=== PATIENT | male | born 1945 | race Caucasian/White ===

== ENCOUNTER → 2018-07-02 10:11 | Outpatient (CLI) | payer OTHER, SELFPAY ==
--- NOTE | 2018-07-02 10:13 | DI.US.S_ITS ---
PROCEDURE: US ABD AORTA ANEURYSM SCREEN INDICATIONS: SCREEN TECHNIQUE: Real time scanning was performed of the aorta and iliac arteries, with image documentation. COMPARISON: None. FINDINGS: Aorta: Proximal aortic diameter is not seen due to bowel gas. Mid-aorta measures 1.7 cm. Distal aortic diameter is 1.5 cm. Iliac arteries: Right common iliac artery measures 0.9 cm. Left common iliac artery measures 1.0 cm. IMPRESSION: Nonvisualization of the proximal third of the aorta due to bowel gas. The aorta and iliac arteries are normal in caliber more inferiorly. Dictated by: Emmanuel Gallegos M.D. on 07/02/2018 at 11:29 Approved by: Emmanuel Gallegos M.D. on 07/02/2018 at 11:30
== END ==
PROVIDERS: PCP Family Medicine; Visit Provider Student in an Organized Health Care Education/Training Program
DX: Z13.6 Encounter for screening for cardiovascular disorders (principal); Z87.891 Personal history of nicotine dependence
CPT/HCPCS: 76706

== ENCOUNTER → 2018-10-18 10:31 | Outpatient (CLI) | payer OTHER, SELFPAY ==
[2018-10-18 12:20] LABS: Alanine Aminotransferase 31 IU/L (21-72); Albumin 4.3 g/dL (3.5-5.0); Albumin Globulin Ratio 1.3 (1.0-2.8); Alkaline Phosphatase 47 U/L (38-126); Aspartate Aminotransferase 27 IU/L (17-59); BUN Creatinine Ratio 14.5 (6-22); Bilirubin Total 1.3 mg/dL (0.2-1.3); Blood Urea Nitrogen 16 mg/dL (9-20); Calcium 9.2 mg/dL (8.4-10.2); Carbon Dioxide 26 mmol/L (22-32); Chloride 104 mmol/L (98-107); Estimated Glomerular Filt Rate > 60.0 mL/min (>60); Globulin 3.2 g/dL (1.7-4.1); Glucose 112 mg/dL (80-110); HEMOLYSIS < 15 (0-50); Potassium 4.3 mmol/L (3.4-5.1); Sodium 140 mmol/L (137-145); Total Protein 7.5 g/dL (6.3-8.2)
[2018-10-18 12:33] LABS: Vitamin D 25 Hydroxy (D3) 34.1 ng/mL (30.0-100.0)
== END ==
PROVIDERS: Family Provider Student in an Organized Health Care Education/Training Program; PCP Student in an Organized Health Care Education/Training Program; Visit Provider Student in an Organized Health Care Education/Training Program
DX: Z79.899 Other long term (current) drug therapy (principal); E55.9 Vitamin D deficiency, unspecified
CPT/HCPCS: 36415; 80053; 82306

== ENCOUNTER → 2020-08-27 14:26 | Outpatient (CLI) | payer OTHER, SELFPAY ==
[2020-08-27 15:42] LABS: Alanine Aminotransferase 24 IU/L (<50); Albumin 4.3 g/dL (3.5-5.0); Albumin Globulin Ratio 1.4 (1.0-2.8); Alkaline Phosphatase 48 U/L (38-126); Aspartate Aminotransferase 30 IU/L (17-59); Bilirubin Total 1.2 mg/dL (0.2-1.3); Blood Urea Nitrogen 19 mg/dL (9-20); Calcium 9.3 mg/dL (8.4-10.2); Carbon Dioxide 28 mmol/L (22-32); Chloride 102 mmol/L (98-107); Estimated Glomerular Filt Rate 46.9 mL/min (>60); Globulin 3.1 g/dL (1.7-4.1); Glucose 104 mg/dL (80-110); HEMOLYSIS < 15 (0-50); Potassium 4.5 mmol/L (3.4-5.1); Sodium 137 mmol/L (137-145); Total Protein 7.4 g/dL (6.3-8.2)
== END ==
PROVIDERS: Family Provider Student in an Organized Health Care Education/Training Program; PCP Student in an Organized Health Care Education/Training Program; Referring Provider Student in an Organized Health Care Education/Training Program; Visit Provider Student in an Organized Health Care Education/Training Program
DX: F10.10 Alcohol abuse, uncomplicated (principal); E55.9 Vitamin D deficiency, unspecified; I10 Essential (primary) hypertension; M10.9 Gout, unspecified
CPT/HCPCS: 36415; 80053; 82306

== ENCOUNTER → 2020-09-21 12:53 | Outpatient (CLI) | payer OTHER, SELFPAY ==
[2020-09-21 13:35] LABS: BUN Creatinine Ratio 15.8 (6-22); Blood Urea Nitrogen 21 mg/dL (9-20); Estimated Glomerular Filt Rate 52.3 mL/min (>60)
[2020-09-21 15:11] LABS: Creatinine Urine Random 85.4 mg/dL
[2020-09-21 15:15] LABS: Microalbumi Creatinin Ratio Ur 16.3 ug/mg CR (<30); Microalbumin Urine Random 1.4 mg/dL (0-1.6)
== END ==
PROVIDERS: Family Provider Student in an Organized Health Care Education/Training Program; PCP Student in an Organized Health Care Education/Training Program; Referring Provider Student in an Organized Health Care Education/Training Program; Visit Provider Student in an Organized Health Care Education/Training Program
DX: I10 Essential (primary) hypertension (principal); N17.9 Acute kidney failure, unspecified
CPT/HCPCS: 36415; 82043; 82565; 82570; 84520

== ENCOUNTER → 2020-12-03 12:25 | Outpatient (CLI) | payer MEDICARE, SELFPAY ==
[2020-12-03] MEDS: COVID-19 VACC #1, MRNA(MOD) 100 MCG/0.5 ML VIAL IM (12:35)
== END ==
PROVIDERS: Family Provider Student in an Organized Health Care Education/Training Program; PCP Student in an Organized Health Care Education/Training Program; Visit Provider Internal Medicine
DX: Z23 Encounter for immunization (principal)
CPT/HCPCS: 0011A; 91301

== ENCOUNTER → 2020-12-31 12:22 | Outpatient (CLI) | payer MEDICARE, SELFPAY ==
[2020-12-31] MEDS: COVID-19 VACC #2, MRNA(MOD) 100 MCG/0.5 ML VIAL IM (12:29)
== END ==
PROVIDERS: Family Provider Student in an Organized Health Care Education/Training Program; PCP Student in an Organized Health Care Education/Training Program; Visit Provider Internal Medicine
DX: Z23 Encounter for immunization (principal)
CPT/HCPCS: 0012A; 91301

== ENCOUNTER → 2021-01-06 14:19 | Outpatient (CLI) | payer OTHER, SELFPAY ==
[2021-01-06 15:07] LABS: BUN Creatinine Ratio 19.6 (6-22); Blood Urea Nitrogen 19 mg/dL (9-20); Calcium 9.5 mg/dL (8.4-10.2); Carbon Dioxide 28 mmol/L (22-32); Chloride 103 mmol/L (98-107); Estimated Glomerular Filt Rate > 60.0 mL/min (>60); Glucose 108 mg/dL (80-110); HEMOLYSIS < 15 (0-50); Potassium 4.9 mmol/L (3.4-5.1); Sodium 137 mmol/L (137-145)
== END ==
PROVIDERS: Family Provider Student in an Organized Health Care Education/Training Program; PCP Student in an Organized Health Care Education/Training Program; Referring Provider Student in an Organized Health Care Education/Training Program; Visit Provider Student in an Organized Health Care Education/Training Program
DX: N18.31 Chronic kidney disease, stage 3a (principal)
CPT/HCPCS: 36415; 80048

== ENCOUNTER → 2022-08-08 11:59 | Outpatient (CLI) | payer OTHER, SELFPAY ==
[2022-08-08 12:59] LABS: Alanine Aminotransferase 26 IU/L (<50); Albumin 4.3 g/dL (3.5-5.0); Albumin Globulin Ratio 1.2 (1.0-2.8); Alkaline Phosphatase 47 U/L (38-126); Aspartate Aminotransferase 28 IU/L (17-59); BUN Creatinine Ratio 17.5 (6-22); Bilirubin Total 1.5 mg/dL (0.2-1.3); Blood Urea Nitrogen 18 mg/dL (9-20); Calcium 9.6 mg/dL (8.4-10.2); Carbon Dioxide 26 mmol/L (22-32); Chloride 102 mmol/L (98-107); Cholesterol 191 mg/dL (140-199); Estimated Glomerular Filt Rate > 60 mL/min (>60); Globulin 3.6 g/dL (1.7-4.1); Glucose 119 mg/dL (80-110); HDL Cholesterol 66 mg/dL (40-60); HEMOLYSIS < 15 (0-50); LDL Cholesterol Calculated 91 mg/dL (<100); Potassium 4.8 mmol/L (3.4-5.1); Sodium 136 mmol/L (137-145); Total Protein 7.9 g/dL (6.3-8.2); Triglycerides 172 mg/dL (35-150)
[2022-08-08 13:11] LABS: Creatinine Urine Random 101.9 mg/dL
[2022-08-08 13:16] LABS: Microalbumi Creatinin Ratio Ur 24.5 ug/mg CR (<30); Microalbumin Urine Random 2.5 mg/dL (0-1.6)
[2022-08-08 14:00] LABS: Hep C Virus Ab w/Reflex Quant NEGATIVE s/c (NEGATIVE)
== END ==
PROVIDERS: Family Provider Student in an Organized Health Care Education/Training Program; PCP Student in an Organized Health Care Education/Training Program; Referring Provider Student in an Organized Health Care Education/Training Program; Visit Provider Student in an Organized Health Care Education/Training Program
DX: E78.00 Pure hypercholesterolemia, unspecified (principal); F10.10 Alcohol abuse, uncomplicated; I10 Essential (primary) hypertension; Z11.59 Encounter for screening for other viral diseases; Z87.448 Personal history of other diseases of urinary system
CPT/HCPCS: 36415; 80053; 80061; 82043; 82570; 86803

== ENCOUNTER 2023-01-20 13:33 | Emergency (ER) | payer OTHER, SELFPAY ==
[2023-01-20] VITALS (23 sets, daily range): BP systolic 100–163; BP diastolic 68–104; PULSE 76–141; RESP 12–25; TEMP 36.3–36.4; O2SAT 93–99; BMI 31.1
[2023-01-20 13:45] LABS: Add Manual Diff / Slide Review NO; Basophils Absolute Auto 100 /uL (0-100); Basophils Percent Auto 1.3 % (0-2); Eosinophils Absolute Auto 500 /uL (0-450); Eosinophils Percent Auto 6.8 % (2-4); Hematocrit 40.7 % (41-53); Hemoglobin 13.9 g/dL (13.5-17.5); Lymphocytes Absolute Auto 1500 /uL (1100-4500); Lymphocytes Percent Auto 20.4 % (25-40); Mean Corpuscular HGB Conc 34.1 % (30-36); Mean Corpuscular Hemoglobin 32.1 PG (26-34); Mean Corpuscular Volume 94.3 fL (80-100); Monocytes Absolute Auto 500 /uL (0-900); Monocytes Percent Auto 7.4 % (3-14); Neutrophils Absolute Auto 4600 /uL (1500-7000); Neutrophils Percent Auto 64.1 % (50-75); Platelet Count 248 X10^3/uL (150-400); Red Blood Cell Count 4.32 X10^6/uL (4.5-5.9); Red Cell Distribution Width 12.4 % (11.6-14.8); White Blood Cell Count 7.3 X10^3/uL (4.5-11.0)
[2023-01-20 13:57] LABS: Alanine Aminotransferase 25 IU/L (<50); Albumin 4.4 g/dL (3.5-5.0); Albumin Globulin Ratio 1.3 (1.0-2.8); Alkaline Phosphatase 46 U/L (38-126); Aspartate Aminotransferase 30 IU/L (17-59); BUN Creatinine Ratio 16.2 (6-22); Bilirubin Total 1.9 mg/dL (0.2-1.3); Blood Urea Nitrogen 16 mg/dL (9-20); Calcium 9.6 mg/dL (8.4-10.2); Carbon Dioxide 28 mmol/L (22-32); Chloride 100 mmol/L (98-107); Estimated Glomerular Filt Rate > 60 mL/min (>60); Globulin 3.5 g/dL (1.7-4.1); Glucose 119 mg/dL (80-110); HEMOLYSIS < 15 (0-50); Lipase 456 U/L (23-300); Magnesium 1.8 mg/dL (1.6-2.3); Sodium 136 mmol/L (137-145); Total Protein 7.9 g/dL (6.3-8.2)
--- NOTE | 2023-01-20 13:57 | PC.NURSE ---
fluids from EMS started at rate of 125ml/hr.
--- NOTE | 2023-01-20 14:10 | ED.ARRPALP ---
HPI - Arrhythmia/Palpitations General Chief Complaint: Arrhythmia/Palpitations Stated Complaint: Tachy, Lightheaded Time Seen by Provider: 01/20/23 13:38 Source: patient and EMS Mode of arrival: EMS Limitations: no limitations History of Present Illness HPI narrative: Patient is a 77-year-old male who was brought in by EMS for evaluation of a episode of lightheadedness and presyncope and also being very tachycardic. Patient states he was at his normal state of health. He walked into the local grocery store. He states he suddenly became very lightheaded. He was not having any chest pain or shortness of breath of the time. He stated that if he did not sit down he would a passed out. He did sit down in the ground. He never actually lost consciousness. EMS was called. They found the patient tachycardic with a heart rate in the 130s. He received 15 mg of diltiazem prior to arrival here in the emergency department without any improvement of symptoms. He is not having any chest pain. He states that he no longer feels like he wants to pass out. No palpitations. No shortness of breath. No nausea vomiting. No headache. No prior history of atrial fibrillation. He stated that many years ago he had some sort of arrhythmia but does not know what it was in his not currently on any medications for it. Does not remember any specific interventions for that episode. Related Data Home Medications Medication Instructions Recorded Confirmed timolol 0.25 % eye drops drp EYE-BOTH 08/08/22 08/08/22 Previous Rx's Medication Instructions Recorded metoprolol succinate 25 mg 12.5 mg PO BID #180 tabs 10/04/22 tablet,extended release 24 hr (Toprol XL) losartan 50 mg tablet 50 mg PO BID #180 tabs 11/08/22 simvastatin 40 mg tablet 40 mg PO HS #90 tabs 12/29/22 rivaroxaban 20 mg tablet (Xarelto) 20 mg PO QPM #30 tabs 01/20/23 Allergies Allergy/AdvReac Type Severity Reaction Status Date / Time amoxicillin [AMOXICILLIN] Allergy Unknown Verified 01/20/23 13:35 codeine [CODEINE] Allergy Unknown NAUSEA Verified 01/20/23 13:35 Review of Systems Review of Systems ROS Unobtainable: All systems reviewed & are unremarkable except as noted in HPI and below Patient History Medical History Cataracts, bilateral (~2007) Chickenpox (Unknown) Compound fracture (1963) Gout (Unknown) Heart failure (2010) Hyperlipemia (2010) Hypertension (Unknown) Irregular heart beat (~1955) Kidney stones (1993) Measles (Unknown) Rheumatic fever (Unknown) Trichilemmoma Vertigo (2010) Surgical History History of kidney surgery (1993) Hx of cataract surgery (2008) Hx of inguinal hernia surgery (12/2004) Hx of umbilical hernia repair (05/2007) Status post knee surgery (06/14/07) Family History Father Heart disease Social History Smoking Status: Never smoker Smoking Status: Never smoker alcohol intake frequency: 0-2 drinks per day Alcohol type: beer and wine Substance Use Type: does not use Exam Initial Vital Signs Initial Vital Signs: Vital Signs Temperature 97.4 F L 01/20/23 13:35 Pulse Rate 141 H 01/20/23 13:35 Respiratory Rate 22 01/20/23 13:35 Blood Pressure 163/104 H 01/20/23 13:35 Pulse Oximetry 98 01/20/23 13:35 Oxygen Delivery Method Room Air 01/20/23 13:35 Const General: cooperative, comfortable and No ill appearing HENMT Head: normal to inspection and normocephalic Resp Effort & Inspection: normal respiratory effort Auscultation: clear to auscultation bilaterally Cardio Rate: tachycardic Rhythm: regular rhythm GI Inspection: normal to inspection and non-distended Back/Spine/Pelvis Back: normal to inspection Skin General: no rashes or lesions noted Neuro General: patient alert, patient awake, patient oriented x3 and moves all extremities Speech: speech normal Extrem General: No edema Procedures Cardioversion Consent Signed: Yes Indication: Atrial flutter Stability: Stable Number of attempts (shocks): 1 Joules used: 120 Cardiac rhythm post-cardioversion: Sinus rhythm Procedural Sedation Consent signed: Yes Time out performed: Yes Indication: cardioversion ASA Class: II Mallampati Airway Classification: Class II Preparation: surveillance system monitor applied, pulse oximeter, capnometry used, supplemental O2 applied, suction/airway equipment at bedside and IV secured Fentanyl: IV Fentanyl dose (mcg): 12 IV Propofol dose (mg): 100 Intraservice time/total sedation time (min): 20 ED Sedation Level: Moderate (Concious) Patient Tolerated Procedure: Well Complications: none Course Orders Ordered: ED Orders 01/20/23 13:35 Complete Blood Count AUTO DIFF Stat Comprehensive Metabolic Panel Stat Lipase Stat Magnesium Stat 01/20/23 13:41 EKG-12 Lead Stat 01/20/23 14:39 EKG-12 Lead Stat Sodium Chloride (Normal Saline 0.9%) 1,000 mls @ 125 mls/hr IV CONT APOLINAR Last Admin: 01/20/23 14:22 Dose: 125 mls/hr Documented By: FLOWER Discontinued Medications Fentanyl (Fentanyl 100 Mcg/2 Ml Inj) 12.5 mcg IV NOW ONE Stop: 01/20/23 14:13 Last Admin: 01/20/23 14:30 Dose: 12.5 mcg Documented By: FLOWER Ondansetron HCl (Ondansetron 4 Mg/2 Ml Inj) 4 mg IV NOW ONE Stop: 01/20/23 14:13 Last Admin: 01/20/23 14:30 Dose: 4 mg Documented By: FLOWER Propofol (Propofol 200 Mg/20 Ml Vial) 100 mg IV NOW ONE Stop: 01/20/23 14:13 Last Admin: 01/20/23 14:43 Dose: 100 mg Documented By: FLOWER Rivaroxaban (Rivaroxaban 10 Mg Tablet) 20 mg PO NOW ONE Stop: 01/20/23 15:26 Vital Signs Vital signs: Vital Signs - 8 hr 01/20/23 13:35 01/20/23 13:40 01/20/23 13:45 Temperature 97.4 F L Pulse Rate 141 H 138 H Respiratory Rate 22 12 Blood Pressure 163/104 H 158/85 H Pulse Oximetry 98 98 Oxygen Delivery Method Room Air Oxygen Flow Rate 01/20/23 13:45 01/20/23 14:00 01/20/23 14:00 Temperature Pulse Rate 138 H 137 H Respiratory Rate 22 14 Blood Pressure 154/79 H Pulse Oximetry 99 97 Oxygen Delivery Method Oxygen Flow Rate 01/20/23 14:15 01/20/23 14:15 01/20/23 14:25 Temperature 97.6 F Pulse Rate 137 H 138 H Respiratory Rate 24 17 Blood Pressure 143/84 H Pulse Oximetry 96 96 Oxygen Delivery Method Room Air Oxygen Flow Rate 01/20/23 14:20 01/20/23 14:25 01/20/23 14:27 Temperature Pulse Rate 137 H 138 H Respiratory Rate 22 22 Blood Pressure 149/91 H Pulse Oximetry 97 97 Oxygen Delivery Method Room Air Room Air Oxygen Flow Rate 01/20/23 14:27 01/20/23 14:30 01/20/23 14:30 Temperature Pulse Rate 138 H 135 H Respiratory Rate 22 22 Blood Pressure 149/93 H Pulse Oximetry 97 99 Oxygen Delivery Method Room Air Room Air Oxygen Flow Rate 01/20/23 14:35 01/20/23 14:38 01/20/23 14:38 Temperature Pulse Rate 134 H 79 Respiratory Rate 24 25 H Blood Pressure 131/76 Pulse Oximetry 93 96 Oxygen Delivery Method Nasal Cannula Nasal Cannula Oxygen Flow Rate 4 4 01/20/23 14:40 01/20/23 14:40 01/20/23 14:45 Temperature Pulse Rate 76 Respiratory Rate 23 Blood Pressure 100/72 127/82 Pulse Oximetry 99 Oxygen Delivery Method Nasal Cannula Oxygen Flow Rate 4 01/20/23 14:45 01/20/23 14:50 01/20/23 14:50 Temperature Pulse Rate 79 81 Respiratory Rate 22 19 Blood Pressure 126/79 Pulse Oximetry 98 97 Oxygen Delivery Method Room Air Room Air Oxygen Flow Rate 01/20/23 14:55 01/20/23 14:55 01/20/23 15:00 Temperature Pulse Rate 82 Respiratory Rate 20 Blood Pressure 120/75 119/75 Pulse Oximetry 95 Oxygen Delivery Method Room Air Oxygen Flow Rate 01/20/23 15:00 Temperature Pulse Rate 82 Respiratory Rate 22 Blood Pressure Pulse Oximetry 96 Oxygen Delivery Method Room Air Oxygen Flow Rate MDM - Arrhythmia/Palpitations Lab Data Attestation: I reviewed the patient's lab results. 01/20/23 13:35 01/20/23 13:35 Labs: Lab Results 01/20/23 01/20/23 Range/Units 13:35 13:35 WBC 7.3 (4.5-11.0) X10^3/uL RBC 4.32 L (4.5-5.9) X10^6/uL Hgb 13.9 (13.5-17.5) g/dL Hct 40.7 L (41-53) % MCV 94.3 (80-100) fL MCH 32.1 (26-34) PG MCHC 34.1 (30-36) % RDW 12.4 (11.6-14.8) % Plt Count 248 (150-400) X10^3/uL Neut % (Auto) 64.1 (50-75) % Lymph % (Auto) 20.4 L (25-40) % [place] % (Auto) 7.4 (3-14) % Eos % (Auto) 6.8 H (2-4) % Baso % (Auto) 1.3 (0-2) % Neut # (Auto) 4600 (5420-9080) /uL Lymph # (Auto) 1500 (0332-4598) /uL [place] # (Auto) 500 (0-900) /uL Eos # (Auto) 500 H (0-450) /uL Baso # (Auto) 100 (0-100) /uL Sodium 136 L (137-145) mmol/L Potassium 4.0 (3.4-5.1) mmol/L Chloride 100 (98-107) mmol/L Carbon Dioxide 28 (22-32) mmol/L BUN 16 (9-20) mg/dL Creatinine 0.99 (0.66-1.25) mg/dL Estimated GFR > 60 (>60) mL/min BUN/Creatinine Ratio 16.2 (6-22) Glucose 119 H (80-110) mg/dL Calcium 9.6 (8.4-10.2) mg/dL Magnesium 1.8 (1.6-2.3) mg/dL Total Bilirubin 1.9 H (0.2-1.3) mg/dL AST 30 (17-59) IU/L ALT 25 (<50) IU/L Alkaline Phosphatase 46 (38-126) U/L Total Protein 7.9 (6.3-8.2) g/dL Albumin 4.4 (3.5-5.0) g/dL Globulin 3.5 (1.7-4.1) g/dL Albumin/Globulin Ratio 1.3 (1.0-2.8) Lipase 456 H (23-300) U/L ECG Data Attestation: I personally reviewed and interpreted this ECG as follows: Interpretation: Presentation EKG Atrial flutter with 2-1 block Ventricular rate 137 Left axis deviation Right bundle-branch block Normal QRS No ST T wave changes Repeat EKG Sinus rhythm Ventricular rate is 78 Left axis deviation Right bundle-branch block Normal QRS QTC [address] T wave changes MDM Narrative Medical decision making narrative: Patient was cardioverted without issue. He was in sinus rhythm afterwards. Labs here in the ER unremarkable. I do suspect that the issue that he had while in the grocery store earlier today was the onset of AFib. Will place the patient on Xarelto. He is currently on metoprolol and we will hold on changing the dosage of this medication for now. He was instructed that he needed to contact his primary doctor for follow-up and also for referral for Cardiology. He was given return precautions. He expressed understanding and agreement. Discharge Plan Departure Patient Disposition: Home Clinical Impression: Atrial flutter Instructions: DI for Atrial Flutter, DI for Cardioversion Activity Restrictions/Additional Instructions: I recommend that you continue to take all of your medications as directed. We do need to start you on a new medicine called Xarelto. I recommend that you Google ?Xarelto co-pay card?. The information that you enter at this site makes the medication very affordable. Recommend you contact your primary doctor as you will need follow-up. Return to the emergency department for new or worsening symptoms. Prescriptions: New Xarelto 20 mg tablet 20 mg PO QPM Qty: 30 0RF Rx Instructions: must administer with evening meal No Action metoprolol succinate [Toprol XL] 25 mg tablet extended release 24 hr 12.5 mg PO BID Qty: 180 3RF losartan 50 mg tablet 50 mg PO BID Qty: 180 2RF simvastatin 40 mg tablet 40 mg PO HS Qty: 90 1RF timolol 0.25 % drops EYE-BOTH Referrals: Pito Sandoval MD [Primary Care Provider] - Stand Alone Forms: Patient Portal/API
[2023-01-20] MEDS: SODIUM CHLORIDE 0.9% 1,000 ML 125 ML IV (14:22)
[2023-01-20] MEDS: fentaNYL 100 MCG/2 ML INJ 12.5 MCG IV (14:30)
[2023-01-20] MEDS: ONDANSETRON 4 MG/2 ML INJ IV (14:30)
[2023-01-20] MEDS: propofoL 200 MG/20 ML VIAL 100 MG IV (14:43)
[2023-01-20] MEDS: RIVAROXABAN 10 MG TABLET 20 MG PO (15:36)
[2023-01-23 14:11] LABS: Bilirubin Direct 0.5 mg/dL (0.0-0.4)
== END 2023-01-20 15:52 | disposition home or self-care (01) ==
PROVIDERS: Emergency Provider Emergency Medicine; Family Provider Student in an Organized Health Care Education/Training Program; PCP Student in an Organized Health Care Education/Training Program
DX: I48.92 Unspecified atrial flutter (principal); R42 Dizziness and giddiness; E80.6 Other disorders of bilirubin metabolism; Z20.822 Contact with and (suspected) exposure to COVID-19
CPT/HCPCS: 36415; 80053; 82248; 83690; 83735; 85025; 92960; 93005; 96374; 96375; 99152; 99285; J2405; J2704; J3010

== ENCOUNTER → 2023-01-31 13:43 | Outpatient (CLI) | payer OTHER, SELFPAY | PROVIDERS: Family Provider Student in an Organized Health Care Education/Training Program; PCP Student in an Organized Health Care Education/Training Program; Referring Provider Student in an Organized Health Care Education/Training Program; Visit Provider Student in an Organized Health Care Education/Training Program | DX: I48.91 Unspecified atrial fibrillation (principal); I48.92 Unspecified atrial flutter | CPT/HCPCS: 93242 ==

== ENCOUNTER 2023-08-22 15:42 | Emergency (ER) | payer OTHER, SELFPAY ==
[2023-08-22] VITALS (13 sets, daily range): BP systolic 102–158; BP diastolic 56–103; PULSE 76–137; RESP 20–25; TEMP 36.4; O2SAT 95–99; BMI 31.1
--- NOTE | 2023-08-22 16:01 | ED.ARRPALP ---
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 The patient presented to his oil spreader operator for routine follow-up and denies any symptoms whatsoever, specifically no palpitations, chest pain or shortness of breath. Denies dizziness, weakness or lightheadedness. He states he has been taking all of his medications as directed, specifically stating that he certainly has not missed a dose of Xarelto ever. EKG in the cardiology office demonstrates atrial flutter and has the resolved he was sent to the emergency department for cardioversion. His oil spreader operator called me directly and we discussed the case prior to the patient's arrival Related Data Home Medications Medication Instructions Recorded Confirmed timolol 0.25 % eye drops drp EYE-BOTH 08/08/22 07/24/23 Previous Rx's Medication Instructions Recorded metoprolol succinate 25 mg 12.5 mg (1/2 x 25 mg) PO BID #180 10/04/22 tablet,extended release 24 hr tabs (Toprol XL) losartan 50 mg tablet 50 mg PO BID #180 tabs 11/08/22 simvastatin 40 mg tablet 40 mg PO HS #90 tabs 12/29/22 rivaroxaban 20 mg tablet (Xarelto) 20 mg PO QPM #90 tabs 07/10/23 Allergies Allergy/AdvReac Type Severity Reaction Status Date / Time amoxicillin [AMOXICILLIN] Allergy Unknown Verified 07/24/23 14:14 codeine [CODEINE] Allergy Unknown NAUSEA Verified 07/24/23 14:14 Review of Systems Review of Systems Narrative: GENERAL: Denies chills, fatigue, malaise, fever, sweats. HEENT: Denies sinus pain, ear pain, sore throat, difficulty swallowing, dizziness. RESPIRATORY: Denies dyspnea, cough, wheezing, hemoptysis, sputum. CARDIOVASCULAR: Denies chest pain, palpitations, orthopnea, edema, GASTROINTESTINAL: Denies nausea, vomiting, abdominal pain, diarrhea, constipation, melena. : Denies dysuria, frequency, incontinence, hematuria, urinary retention. MUSCULOSKELETAL: denies weakness, joint pain, or bony pain SKIN: Denies rash, skin lesions, or other NEUROLOGIC: Denies weakness, headache, numbness, change in speech, confusion, seizures, incoordination. PSYCHIATRIC: No concerning psychosocial issues. 12 point review of systems is negative except for those stated above Patient History Medical History Atrial flutter Trichilemmoma Compound fracture (1963) Gout (Unknown) Rheumatic fever (Unknown) Chickenpox (Unknown) Measles (Unknown) Cataracts, bilateral (~2007) Vertigo (2010) Kidney stones (1993) Irregular heart beat (~1955) Hyperlipemia (2010) Hypertension (Unknown) Heart failure (2010) Surgical History Hx of umbilical hernia repair (05/2007) Hx of inguinal hernia surgery (12/2004) History of kidney surgery (1993) Hx of cataract surgery (2008) Status post knee surgery (06/14/07) Family History Father Heart disease Social History Smoking Status: Never smoker Smoking Status: Never smoker alcohol intake frequency: 0-2 drinks per day Alcohol type: beer and wine Substance Use Type: does not use Exam Narrative Exam Narrative: GENERAL: [78] year old patient appears stated age. Well-developed patient, in mild distress. HEAD: Atraumatic. Normocephalic. EYES: Pupils equal round and reactive. Extraocular motions intact. No scleral icterus. No injection or drainage. ENT: Nose without bleeding, purulent drainage. Throat without erythema, tonsillar hypertrophy or exudate. Airway patent. NECK: Trachea midline. Non tender CARDIOVASCULAR: tachycardic but regular rhythm without murmurs, gallops, or rubs. RESPIRATORY: Clear to auscultation. Breath sounds equal bilaterally. No wheezes, rales, or rhonchi. GASTROINTESTINAL: Abdomen soft, non-tender, nondistended. EXTREMITIES: No edema or joint tenderness. BACK: Nontender without deformity or crepitance. No flank tenderness. NEURO: AOx3. SKIN: No rash or erythema of visible areas Initial Vital Signs Initial Vital Signs: Vital Signs Temperature 97.6 F 08/22/23 15:50 Pulse Rate 136 H 08/22/23 15:50 Respiratory Rate 20 08/22/23 15:50 Blood Pressure 158/103 H 08/22/23 15:50 Pulse Oximetry 99 08/22/23 15:50 Oxygen Delivery Method Room Air 08/22/23 15:50 Procedures Cardioversion Consent Signed: Yes Indication: atrial flutter, on Xarelto Stability: Stable Number of attempts (shocks): 1 Joules used: 120 Cardiac rhythm post-cardioversion: NSR in 70s Procedural Sedation Consent signed: Yes Time out performed: Yes Indication: cardioversion ASA Class: II Mallampati Airway Classification: Class III Preparation: oil spreader operator applied, pulse oximeter, capnometry used, supplemental O2 applied, suction/airway equipment at bedside and IV secured IV Propofol dose (mg): 80 Intraservice time/total sedation time (min): 12 ED Sedation Level: Moderate (Concious) Patient Tolerated Procedure: Well Complications: hypoventilation Interventions: Airway repositioned Course Orders Ordered: Discontinued Medications Propofol (Propofol 200 Mg/20 Ml Vial) 105 mg 1 mg/kg (105 mg) IV NOW ONE Stop: 08/22/23 16:02 Last Admin: 08/22/23 16:27 Dose: 80 mg Documented By: AMV Consultations Consultation #1: Discussed with patient's primary oil spreader operator prior to arrival (Dr. Blake). Agrees with plan to cardiovert, no indication to change routine meds. He will be pursuing outpatient consultation with EP on behalf of Mr. Gatica. Vital Signs Vital signs: Vital Signs - 8 hr 08/22/23 15:50 Temperature 97.6 F Pulse Rate 136 H Respiratory Rate 20 Blood Pressure 158/103 H Pulse Oximetry 99 Oxygen Delivery Method Room Air MDM - Arrhythmia/Palpitations Lab Data 08/22/23 16:00 08/22/23 16:00 Labs: Lab Results 08/22/23 Range/Units 16:00 WBC 6.0 (4.5-11.0) X10^3/uL RBC 4.08 L (4.5-5.9) X10^6/uL Hgb 13.3 L (13.5-17.5) g/dL Hct 39.2 L (41-53) % MCV 96.2 (80-100) fL MCH 32.7 (26-34) PG MCHC 34.0 (30-36) % RDW 13.1 (11.6-14.8) % Plt Count 218 (150-400) X10^3/uL Neut % (Auto) 65.3 (50-75) % Lymph % (Auto) 19.1 L (25-40) % [place] % (Auto) 8.6 (3-14) % Eos % (Auto) 6.4 H (2-4) % Baso % (Auto) 0.6 (0-2) % Neut # (Auto) 3900 (9945-7887) /uL Lymph # (Auto) 1100 (3166-5075) /uL [place] # (Auto) 500 (0-900) /uL Eos # (Auto) 400 (0-450) /uL Baso # (Auto) 0 (0-100) /uL Sodium 136 L (137-145) mmol/L Potassium 4.1 (3.4-5.1) mmol/L Chloride 103 (98-107) mmol/L Carbon Dioxide 25 (22-32) mmol/L BUN 19 (9-20) mg/dL Creatinine 0.97 (0.66-1.25) mg/dL Estimated GFR > 60 (>60) mL/min BUN/Creatinine Ratio 19.6 (6-22) Glucose 114 H (80-110) mg/dL Calcium 9.2 (8.4-10.2) mg/dL Magnesium 1.9 (1.6-2.3) mg/dL [facility] Narrative Medical decision making narrative: [78] year old patient presents with asymptomatic atrial flutter Multiple etiologies for patient's symptoms considered including, but not limited to: [Atrial flutter] Prior Charts reviewed in our EMR Primary Historian: patient Labs reviewed and interpreted by myself: No significant abnormalities requiring a specific intervention Consultations: Cardiology (Lou) see details above Patient's symptoms improved over duration of stay with above-stated therapies. Patient sedated with propofol and cardioverted, patient remained in a normal sinus rhythm in the aftermath, by rhythm strip and postprocedural EKG Findings and discharge diagnosis discussed with patient/family followed by verbalization of understanding Return precautions discussed with patient/family whom verbalize understanding of diagnosis and plan Discharge Plan Departure Patient Disposition: Home Clinical Impression: Atrial flutter with rapid ventricular response Instructions: DI for Atrial Flutter Activity Restrictions/Additional Instructions: *You have been diagnosed with [rapid atrial flutter with cardioversion] *What to do: *Please continue to take your regular medications as directed. [ *Please follow up with your primary oil spreader operator, call for an appointment. Let them know you were seen in the Emergency Department and that we ask that you be seen in follow up. *Return to Emergency Department if you should have any new, worsening or concerning symptoms, such as [fever greater than 101 F, shaking chills, worsening pain, persistent vomiting or other bothersome symptoms] Prescriptions: No Action Xarelto 20 mg tablet 20 mg PO QPM Qty: 90 3RF Rx Instructions: must administer with evening meal metoprolol succinate [Toprol XL] 25 mg tablet extended release 24 hr 12.5 mg PO BID Qty: 180 3RF losartan 50 mg tablet 50 mg PO BID Qty: 180 2RF simvastatin 40 mg tablet 40 mg PO HS Qty: 90 1RF timolol 0.25 % drops EYE-BOTH Referrals: Daniel Arceo MD [Primary Care Provider] - Servando Blake MD [Non-Staff] - Stand Alone Forms: Patient Portal/API
[2023-08-22 16:16] LABS: Add Manual Diff / Slide Review NO; Basophils Absolute Auto 0 /uL (0-100); Basophils Percent Auto 0.6 % (0-2); Eosinophils Absolute Auto 400 /uL (0-450); Eosinophils Percent Auto 6.4 % (2-4); Hematocrit 39.2 % (41-53); Hemoglobin 13.3 g/dL (13.5-17.5); Lymphocytes Absolute Auto 1100 /uL (1100-4500); Lymphocytes Percent Auto 19.1 % (25-40); Mean Corpuscular Hemoglobin 32.7 PG (26-34); Mean Corpuscular Volume 96.2 fL (80-100); Monocytes Absolute Auto 500 /uL (0-900); Monocytes Percent Auto 8.6 % (3-14); Neutrophils Absolute Auto 3900 /uL (1500-7000); Neutrophils Percent Auto 65.3 % (50-75); Platelet Count 218 X10^3/uL (150-400); Red Blood Cell Count 4.08 X10^6/uL (4.5-5.9); Red Cell Distribution Width 13.1 % (11.6-14.8)
[2023-08-22] MEDS: propofoL 200 MG/20 ML VIAL 105 MG IV (16:27)
[2023-08-22 16:32] LABS: BUN Creatinine Ratio 19.6 (6-22); Blood Urea Nitrogen 19 mg/dL (9-20); Calcium 9.2 mg/dL (8.4-10.2); Carbon Dioxide 25 mmol/L (22-32); Chloride 103 mmol/L (98-107); Estimated Glomerular Filt Rate > 60 mL/min (>60); Glucose 114 mg/dL (80-110); HEMOLYSIS 21 (0-50); Magnesium 1.9 mg/dL (1.6-2.3); Potassium 4.1 mmol/L (3.4-5.1); Sodium 136 mmol/L (137-145)
== END 2023-08-22 17:07 | disposition home or self-care (01) ==
PROVIDERS: Emergency Provider Emergency Medicine; Family Provider Student in an Organized Health Care Education/Training Program; PCP Family Medicine; Referring Provider Internal Medicine Cardiovascular Disease
DX: I48.92 Unspecified atrial flutter (principal); I48.91 Unspecified atrial fibrillation; Z79.01 Long term (current) use of anticoagulants
CPT/HCPCS: 36415; 80048; 83735; 85025; 92960; 93005; 93010; 99285; J2704

== ENCOUNTER 2024-02-15 14:30 | Emergency (ER) | payer OTHER, SELFPAY ==
[2024-02-15] VITALS (21 sets, daily range): BP systolic 101–145; BP diastolic 71–94; PULSE 79–139; RESP 14–31; TEMP 36.1; O2SAT 93–100
--- NOTE | 2024-02-15 14:43 | DI.RAD.S_ITS ---
PROCEDURE: XR CHEST 1V INDICATIONS: chest pain TECHNIQUE: One view of the chest was acquired. COMPARISON: [facility], , CHEST 1 VIEW, 12/17/2010, 22:03. FINDINGS: Surgical changes and devices: None. Lungs and pleura: Lung volumes are low. There is likely bilateral basilar atelectasis. Small pleural effusions cannot be excluded. Mediastinum: Mediastinal contours appear normal. Heart size is normal. Bones and chest wall: No suspicious bony lesions. Overlying soft tissues appear unremarkable. IMPRESSION: Low lung volumes and basilar atelectasis. Dictated by: Lora Love M.D. on 02/15/2024 at 15:20 Approved by: Lora Love M.D. on 02/15/2024 at 15:21
[2024-02-15 15:05] LABS: Add Manual Diff / Slide Review NO; Basophils Absolute Auto 100 /uL (0-100); Basophils Percent Auto 1.3 % (0-2); Eosinophils Absolute Auto 400 /uL (0-450); Eosinophils Percent Auto 6.2 % (2-4); Hematocrit 39.8 % (41-53); Hemoglobin 13.4 g/dL (13.5-17.5); Lymphocytes Absolute Auto 1100 /uL (1100-4500); Lymphocytes Percent Auto 17.8 % (25-40); Mean Corpuscular HGB Conc 33.6 % (30-36); Mean Corpuscular Volume 95.3 fL (80-100); Monocytes Absolute Auto 500 /uL (0-900); Monocytes Percent Auto 8.1 % (3-14); Neutrophils Absolute Auto 4200 /uL (1500-7000); Neutrophils Percent Auto 66.6 % (50-75); Platelet Count 246 X10^3/uL (150-400); Red Blood Cell Count 4.18 X10^6/uL (4.5-5.9); Red Cell Distribution Width 12.6 % (11.6-14.8); White Blood Cell Count 6.3 X10^3/uL (4.5-11.0)
[2024-02-15 15:14] LABS: INR 1.2 (0.9-1.3); Prothrombin Time 14.1 SECONDS (9.4-12.5)
[2024-02-15 15:17] LABS: PTT Partial Thromboplastin Tim 37 SECONDS (25.1-36.5)
--- NOTE | 2024-02-15 15:19 | ED.ARRPALP ---
HPI - Arrhythmia/Palpitations General Chief Complaint: Arrhythmia/Palpitations Stated Complaint: accelerated heart rate, sent by PCP Time Seen by Provider: 02/15/24 15:19 Mode of arrival: Ambulatory History of Present Illness HPI narrative: Patient is a 78-year-old male with known history of atrial fibrillation on anticoagulation presenting today from cardiology office AFib with RVR. He reports that he goes into AFib with RVR occasionally he has been cardioverted before. He has been on Xarelto he has not missed any doses. He says sometimes he is palpitations whenever he exerts himself. No shortness of breath or chest pain. He reports that he frequently has a heart rate in the 140s he stopped checking his heart rate has a it gave him anxiety. He thinks his heart rate has been about this for the last 4-5 days. Related Data Home Medications Medication Instructions Recorded Confirmed timolol 0.25 % eye drops drp EYE-BOTH 08/08/22 07/24/23 Previous Rx's Medication Instructions Recorded rivaroxaban 20 mg tablet (Xarelto) 20 mg PO QPM #90 tabs 07/10/23 simvastatin 40 mg tablet 40 mg PO HS #90 tabs 10/18/23 losartan 50 mg tablet 50 mg PO BID #180 tabs 11/05/23 metoprolol succinate 25 mg 12.5 mg (1/2 x 25 mg) PO BID #180 11/05/23 tablet,extended release 24 hr tabs (Toprol XL) Allergies Allergy/AdvReac Type Severity Reaction Status Date / Time amoxicillin [AMOXICILLIN] Allergy Unknown Verified 02/15/24 14:44 codeine [CODEINE] Allergy Unknown NAUSEA Verified 02/15/24 14:44 Patient History Medical History Atrial flutter Trichilemmoma Compound fracture (1963) Gout (Unknown) Rheumatic fever (Unknown) Chickenpox (Unknown) Measles (Unknown) Cataracts, bilateral (~2007) Vertigo (2010) Kidney stones (1993) Irregular heart beat (~1955) Hyperlipemia (2010) Hypertension (Unknown) Heart failure (2010) Surgical History Hx of umbilical hernia repair (05/2007) Hx of inguinal hernia surgery (12/2004) History of kidney surgery (1993) Hx of cataract surgery (2008) Status post knee surgery (06/14/07) Family History Father Heart disease Social History Smoking Status: Never smoker Smoking Status: Never smoker alcohol intake frequency: 0-2 drinks per day Alcohol type: beer and wine Substance Use Type: does not use Exam Initial Vital Signs Initial Vital Signs: Vital Signs Temperature 96.9 F L 02/15/24 14:34 Pulse Rate 139 H 02/15/24 14:34 Respiratory Rate 22 02/15/24 14:34 Blood Pressure 138/83 02/15/24 14:34 Pulse Oximetry 99 02/15/24 14:34 Oxygen Delivery Method Room Air 02/15/24 14:34 GENERAL: Alert very pleasant 78-year-old male HEENT: Head atraumatic,EOMI, pupils reactive, face symmetric, moist mucous membranes CARDIOVASCULAR: Tachycardic regular RESPIRATORY: Breath sounds equal bilaterally, no wheezes rales or rhonchi. ABDOMEN: Soft, nontender. Normoactive bowel sounds all 4 quadrants. No guarding or rebound. EXTREMITIES: Normal range of motion, no clubbing or edema. Neurovascularly intact NEUROLOGICAL: Alert and oriented x4.Normal gait and speech. Cranial nerves II through XII grossly intact. SKIN: Warm, dry, no laceration, no petechiae, no rashes or lesions. Procedures Cardioversion Consent Signed: Yes Stability: Stable Number of attempts (shocks): 1 Joules used: 120 Cardiac rhythm post-cardioversion: NSR Procedural Sedation Consent signed: Yes Indication: cardioversion IV Propofol dose (mg): 70 Intraservice time/total sedation time (min): 12 ED Sedation Level: Moderate (Concious) Patient Tolerated Procedure: Well and No complications Course Orders Ordered: ED Orders 02/15/24 14:43 XR chest 1V Stat 02/15/24 14:50 EKG-12 Lead Stat 02/15/24 14:55 Complete Blood Count AUTO DIFF Stat Comprehensive Metabolic Panel Stat Lipase Stat Magnesium Stat PTT Partial Thromboplastin Edin Stat Prothrombin Time INR Stat Troponin & CK Cardiac Panel Stat Discontinued Medications Aspirin (Aspirin 81 Mg Chew Tab) 324 mg PO NOW ONE Stop: 02/15/24 14:44 Last Admin: 02/15/24 18:41 Dose: Not Given Metoprolol Tartrate (Metoprolol Tartrate 5 Mg/5 Ml Inj) 5 mg IV NOW ONE Stop: 02/15/24 15:20 Last Admin: 02/15/24 18:41 Dose: Not Given Propofol (Propofol 200 Mg/20 Ml Vial) 105 mg 1 mg/kg (105 mg) IV NOW ONE Stop: 02/15/24 15:21 Last Admin: 02/15/24 18:11 Dose: 70 mg Vital Signs Vital signs: Vital Signs - 8 hr 02/15/24 14:34 02/15/24 14:51 02/15/24 15:00 Temperature 96.9 F L Pulse Rate 139 H 135 H 135 H Respiratory Rate 22 15 Blood Pressure 138/83 Pulse Oximetry 99 98 98 Oxygen Delivery Method Room Air 02/15/24 15:30 02/15/24 15:49 02/15/24 15:49 Temperature Pulse Rate 134 H 135 H Respiratory Rate 17 24 Blood Pressure 130/88 Pulse Oximetry 96 96 Oxygen Delivery Method 02/15/24 16:00 02/15/24 16:00 02/15/24 16:30 Temperature Pulse Rate 134 H 133 H Respiratory Rate 14 20 Blood Pressure 128/88 Pulse Oximetry 96 97 Oxygen Delivery Method 02/15/24 16:30 02/15/24 16:52 02/15/24 17:00 Temperature Pulse Rate 134 H 133 H Respiratory Rate 22 20 Blood Pressure 139/87 Pulse Oximetry 98 100 Oxygen Delivery Method 02/15/24 17:00 02/15/24 17:30 02/15/24 17:30 Temperature Pulse Rate 133 H Respiratory Rate 23 Blood Pressure 141/93 H 145/94 H Pulse Oximetry 99 Oxygen Delivery Method 02/15/24 18:00 02/15/24 18:00 02/15/24 18:14 Temperature Pulse Rate 134 H 84 Respiratory Rate 20 23 Blood Pressure 142/89 H Pulse Oximetry 99 93 Oxygen Delivery Method 02/15/24 18:14 02/15/24 18:15 02/15/24 18:15 Temperature Pulse Rate 79 Respiratory Rate 26 H Blood Pressure 122/81 101/77 Pulse Oximetry 95 Oxygen Delivery Method 02/15/24 18:21 02/15/24 18:21 02/15/24 18:25 Temperature Pulse Rate 80 80 Respiratory Rate 31 H 24 Blood Pressure 122/71 Pulse Oximetry 99 99 Oxygen Delivery Method 02/15/24 18:25 02/15/24 18:30 02/15/24 18:30 Temperature Pulse Rate 83 Respiratory Rate 24 Blood Pressure 119/72 122/77 Pulse Oximetry 99 Oxygen Delivery Method 02/15/24 18:35 02/15/24 18:35 02/15/24 18:40 Temperature Pulse Rate 83 86 Respiratory Rate 21 23 Blood Pressure 121/76 Pulse Oximetry 100 98 Oxygen Delivery Method 02/15/24 18:40 02/15/24 18:45 02/15/24 18:45 Temperature Pulse Rate 87 Respiratory Rate 23 Blood Pressure 118/76 124/72 Pulse Oximetry 99 Oxygen Delivery Method 02/15/24 18:50 02/15/24 18:50 Temperature Pulse Rate 90 Respiratory Rate 29 H Blood Pressure 132/82 Pulse Oximetry 99 Oxygen Delivery Method MDM - Arrhythmia/Palpitations Lab Data 02/15/24 14:55 02/15/24 14:55 Labs: Lab Results 02/15/24 Range/Units 14:55 WBC 6.3 (4.5-11.0) X10^3/uL RBC 4.18 L (4.5-5.9) X10^6/uL Hgb 13.4 L (13.5-17.5) g/dL Hct 39.8 L (41-53) % MCV 95.3 (80-100) fL MCH 32.0 (26-34) PG MCHC 33.6 (30-36) % RDW 12.6 (11.6-14.8) % Plt Count 246 (150-400) X10^3/uL Neut % (Auto) 66.6 (50-75) % Lymph % (Auto) 17.8 L (25-40) % Darke % (Auto) 8.1 (3-14) % Eos % (Auto) 6.2 H (2-4) % Baso % (Auto) 1.3 (0-2) % Neut # (Auto) 4200 (0851-0551) /uL Lymph # (Auto) 1100 (4523-2196) /uL Darke # (Auto) 500 (0-900) /uL Eos # (Auto) 400 (0-450) /uL Baso # (Auto) 100 (0-100) /uL PT 14.1 H (9.4-12.5) SECONDS INR 1.2 (0.9-1.3) APTT 37 H (25.1-36.5) SECONDS Sodium 137 (137-145) mmol/L Potassium 4.7 (3.4-5.1) mmol/L Chloride 104 (98-107) mmol/L Carbon Dioxide 27 (22-32) mmol/L BUN 20 (9-20) mg/dL Creatinine 1.07 (0.66-1.25) mg/dL Estimated GFR > 60 (>60) mL/min BUN/Creatinine Ratio 18.7 (6-22) Glucose 117 H (80-110) mg/dL Calcium 9.0 (8.4-10.2) mg/dL Magnesium 1.9 (1.6-2.3) mg/dL Total Bilirubin 1.6 H (0.2-1.3) mg/dL AST 28 (17-59) IU/L ALT 22 (<50) IU/L Alkaline Phosphatase 53 (38-126) U/L Total Creatine Kinase 58 (55-170) U/L Troponin I < 0.012 (0.01-0.034) ng/mL Total Protein 7.2 (6.3-8.2) g/dL Albumin 4.4 (3.5-5.0) g/dL Globulin 2.8 (1.7-4.1) g/dL Albumin/Globulin Ratio 1.6 (1.0-2.8) Lipase 343 H (23-300) U/L Urine Dip Bedside Urine Glucose Negative Bedside Urine Bilirubin - Negative Bedside Urine Ketone - Negative Urine Specific Starlight 1.015 Bedside Urine Occult Blood - Negative Bedside Urine pH 6.0 Bedside Urine Protein - Negative Bedside Urine Urobilinogen - Negative Bedside Urine Nitrite - Negative Bedside Urine Leukocytes - Negative Esterase Imaging Data Chest x-ray: Radiologist's Impresson: PROCEDURE: XR CHEST 1V INDICATIONS: chest pain TECHNIQUE: One view of the chest was acquired. COMPARISON: [facility], , CHEST 1 VIEW, 12/17/2010, 22:03. FINDINGS: Surgical changes and devices: None. Lungs and pleura: Lung volumes are low. There is likely bilateral basilar atelectasis. Small pleural effusions cannot be excluded. Mediastinum: Mediastinal contours appear normal. Heart size is normal. Bones and chest wall: No suspicious bony lesions. Overlying soft tissues appear unremarkable. IMPRESSION: Low lung volumes and basilar atelectasis. Dictated by: Lora Love M.D. on 02/15/2024 at 15:20 ECG Data Attestation: I personally reviewed and interpreted this ECG as follows: Prior ECG tracings: available for review Interpretation: AFib with RVR rate 136 no ischemic changes similar to previous EKGs Normal sinus rhythm MDM Narrative Medical decision making narrative: Patient 78-year-old male history of AFib on Xarelto presents today with AFib with RVR from the cardiology office. He has likely been having symptoms the last couple of days has not missed Xarelto. He has a candidate for cardioversion. Blood work has been reviewed without any clinical significant abnormality no leukocytosis anemia RAAD or electrolyte abnormality Chest x-ray no acute cardiopulmonary process EKGs have been reviewed Patient was easily cardioverted with 70 mg of propofol at 120 joules Patient is feeling significantly better back in sinus rhythm. At this time no further workup is indicated. Discharge Plan Departure Patient Disposition: Home Clinical Impression: Atrial fibrillation Instructions: DI for Atrial Fibrillation Activity Restrictions/Additional Instructions: *You have been diagnosed with atrial fibrillation *What to do: Please follow-up with Cardiology and recommendations. May or may not be a candidate for ablation *Continue to take medications as directed *Follow up with your primary care provider in 2-3 days or call [phone] *Return to ER if you should have increased palpitation or any new, worsening or concerning symptoms Prescriptions: No Action Xarelto 20 mg tablet 20 mg PO QPM Qty: 90 3RF Rx Instructions: must administer with evening meal simvastatin 40 mg tablet 40 mg PO HS Qty: 90 1RF losartan 50 mg tablet 50 mg PO BID Qty: 180 2RF metoprolol succinate [Toprol XL] 25 mg tablet extended release 24 hr 12.5 mg PO BID Qty: 180 3RF timolol 0.25 % drops EYE-BOTH Referrals: Daniel Arceo MD [Primary Care Provider] - Stand Alone Forms: Patient Portal/API
[2024-02-15 15:20] LABS: Alanine Aminotransferase 22 IU/L (<50); Albumin 4.4 g/dL (3.5-5.0); Albumin Globulin Ratio 1.6 (1.0-2.8); Alkaline Phosphatase 53 U/L (38-126); Aspartate Aminotransferase 28 IU/L (17-59); BUN Creatinine Ratio 18.7 (6-22); Bilirubin Total 1.6 mg/dL (0.2-1.3); Blood Urea Nitrogen 20 mg/dL (9-20); Carbon Dioxide 27 mmol/L (22-32); Chloride 104 mmol/L (98-107); Creatine Kinase 58 U/L (55-170); Estimated Glomerular Filt Rate > 60 mL/min (>60); Globulin 2.8 g/dL (1.7-4.1); Glucose 117 mg/dL (80-110); HEMOLYSIS < 15 (0-50); Lipase 343 U/L (23-300); Magnesium 1.9 mg/dL (1.6-2.3); Potassium 4.7 mmol/L (3.4-5.1); Sodium 137 mmol/L (137-145); Total Protein 7.2 g/dL (6.3-8.2)
[2024-02-15 15:30] LABS: Troponin I < 0.012 ng/mL (0.01-0.034)
[2024-02-15] MEDS: propofoL 200 MG/20 ML VIAL 105 MG IV (18:11)
== END 2024-02-15 19:06 | disposition home or self-care (01) ==
PROVIDERS: Emergency Provider Emergency Medicine; Family Provider Student in an Organized Health Care Education/Training Program; PCP Family Medicine
DX: I48.91 Unspecified atrial fibrillation (principal); R07.9 Chest pain, unspecified; Z79.01 Long term (current) use of anticoagulants
CPT/HCPCS: 36415; 71045; 80053; 81003; 82550; 83690; 83735; 84484; 85025; 85610; 85730; 92960; 93005; 99152; 99285; J2704

== ENCOUNTER 2024-03-23 12:12 | Inpatient (IN) | payer OTHER, SELFPAY ==
[2024-03-23] VITALS (115 sets, daily range): BP systolic 73–142; BP diastolic 44–72; PULSE 126–137; RESP 10–60; TEMP 36.7–39.3; O2SAT 91–99; BMI 29.8; BMI 29.9
--- NOTE | 2024-03-23 12:17 | DI.CT.S_ITS ---
PROCEDURE: CT ANGIO ABD/PEL GI BLEED INDICATIONS: GI bleed TECHNIQUE: After the administration of intravenous contrast, 2.5 mm thick sections acquired from the diaphragm to the symphysis. 10 mm maximum-intensity projection (MIP) reformats were then acquired. For radiation dose reduction, the following was used: automated exposure control. COMPARISON: None. FINDINGS: Image Quality: Diagnostic. Abdominal aorta: No aortic aneurysm or evidence of acute aortic syndrome. Mesenteric arteries: Patent without hemodynamically significant stenosis. Renal arteries: Patent without hemodynamically significant stenosis. OTHER: Lower Chest: Streaky opacities are present within the right base atelectasis Liver: No solid mass. Gallbladder: No radiopaque gallstones or wall thickening. Biliary ducts: No biliary dilation. Pancreas: No ductal dilation. Spleen: Size is within normal limits. Adrenal Glands: No adrenal nodules. Kidneys and Ureters: No hydronephrosis. No solid mass. No complex renal cystic lesion which requires follow up. Renal atrophy. Bilateral nonobstructing calculi. Both kidneys demonstrate duplicated collecting systems with atrophy most significant in the lower pole moiety. 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 A 7 mm calcification at the left ureterovesicular junction Hounsfield units measuring 1068. Stomach and Bowel: No obstruction. There is a focus of marked luminal narrowing within the distal sigmoid colon best seen on series 9, image 125. Luminal contrast is present on noncontrast images, likely from prior exam with contrast administration. However, this may have been done in outside institution as it is not visible internally. Peritoneum: No abnormal intraperitoneal fluid. No free air. Ventral Wall: No hernia. Abdominal Nodes: No retroperitoneal or mesenteric adenopathy by size criteria. Vessels: Aorta and inferior vena cava are normal in size. PELVIS: Pelvic Organs: Unremarkable. Bladder: Unremarkable. Pelvic Nodes: No enlarged lymph nodes. Miscellaneous: No inguinal hernias are seen. Inferior perirectal/perineal fluid collection is noted to the left of midline measuring approximately 1.6 cm within the subcutaneous fat. There is subcutaneous air identified as well as stranding. Bones: No aggressive osseous abnormality. Multilevel degenerative changes including compression deformity at L2 appearing. IMPRESSION: Inferior perirectal/perineal inflammatory change with fluid collection and air most consistent with abscess. High-grade luminal short segment narrowing within the sigmoid colon. Finding is concerning for colon mass and further evaluation with colonoscopy is recommended. Diverticulosis. Distal left ureteral calculus at the ureterovesicular junction without obstruction. Dictated by: Cammy Miranda M.D. on 03/23/2024 at 14:04 Approved by: Cammy Miranda M.D. on 03/23/2024 at 14:14
--- NOTE | 2024-03-23 12:21 | EKG_ITS ---
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
--- NOTE | 2024-03-23 12:26 | ED.GIBLEED ---
HPI - GI Bleed General Chief complaint: GI Bleed Stated complaint: Black tarry stools x 3 days Time Seen by Provider: 03/23/24 12:14 Source: patient and EMS Mode of arrival: EMS History of Present Illness HPI Narrative: Patient is a 78-year-old male. Is on rivaroxaban secondary to atrial fibrillation. Is here for evaluation of 3-4 days of black tarry stools. Patient reports lower abdominal pain and fairly severe rectal pain. Is having some nausea but no vomiting. No chest pain. No shortness of breath. Denies any urinary symptoms. Some concern from my mouth altered mental status however the patient is alert and oriented in the room during my triage. No recent falls. Did not hit his head. No bruising. He states that his rectum only hurts when he sits when he was lying down his relatively asymptomatic. Related Data Home Medications Medication Instructions Recorded Confirmed timolol 0.25 % eye drops drp EYE-BOTH 08/08/22 07/24/23 Previous Rx's Medication Instructions Recorded rivaroxaban 20 mg tablet (Xarelto) 20 mg PO QPM #90 tabs 07/10/23 losartan 50 mg tablet 50 mg PO BID #180 tabs 11/05/23 metoprolol succinate 25 mg 12.5 mg (1/2 x 25 mg) PO BID #180 11/05/23 tablet,extended release 24 hr tabs (Toprol XL) simvastatin 40 mg tablet 40 mg PO ONCE PM #90 tabs 03/17/24 Allergies Allergy/AdvReac Type Severity Reaction Status Date / Time amoxicillin [AMOXICILLIN] Allergy Unknown Verified 02/15/24 14:44 codeine [CODEINE] Allergy Unknown NAUSEA Verified 02/15/24 14:44 Review of Systems Review of Systems ROS Unobtainable: All systems reviewed & are unremarkable except as noted in HPI and below Patient History Medical History Atrial flutter Trichilemmoma Compound fracture (1963) Gout (Unknown) Rheumatic fever (Unknown) Chickenpox (Unknown) Measles (Unknown) Cataracts, bilateral (~2007) Vertigo (2010) Kidney stones (1993) Irregular heart beat (~1955) Hyperlipemia (2010) Hypertension (Unknown) Heart failure (2010) Surgical History Hx of umbilical hernia repair (05/2007) Hx of inguinal hernia surgery (12/2004) History of kidney surgery (1993) Hx of cataract surgery (2008) Status post knee surgery (06/14/07) Family History Father Heart disease Social History Smoking Status: Never smoker Smoking Status: Never smoker alcohol intake frequency: 0-2 drinks per day Alcohol type: beer and wine Substance Use Type: does not use Exam Initial Vital Signs Initial Vital Signs: Vital Signs Blood Pressure 133/64 03/23/24 12:15 Pulse Oximetry 94 03/23/24 12:15 Const General: cooperative and No ill appearing HENMT Head: normal to inspection and normocephalic Resp Effort & Inspection: normal respiratory effort Auscultation: clear to auscultation bilaterally Cardio Rate: tachycardic Rhythm: abnormal rhythm GI Inspection: normal to inspection and non-distended Palpation: soft, No firm, No guarding and No rigid Rectal Exam: normal sphincter tone, heme negative stool, No hemorrhoids, No lesions, No mass and tenderness Other: Despite nursing triage notes the patient does not have a rigid abdomen upon my exam. It is tender to palpation in the lower abdomen Skin General: no rashes or lesions noted Neuro General: patient alert, patient awake, patient oriented x3 and moves all extremities Cognition: normal cognition Speech: speech normal Extrem General: capillary refill normal Course Orders Ordered: ED Orders 03/23/24 12:15 EKG-12 Lead Stat EKG-12 Lead Stat 03/23/24 12:17 CT angio Abd/Pel GI Bleed Stat 03/23/24 12:24 Complete Blood Count AUTO DIFF Stat Comprehensive Metabolic Panel Stat Lactate (Lactic Acid) Stat Lipase Stat PTT Partial Thromboplastin Edin Stat Procalcitonin Stat Prothrombin Time INR Stat 03/23/24 12:30 Blood Culture Stat Type and Screen Stat 03/23/24 12:37 XR chest 1V Stat 03/23/24 14:30 Hemoglobin and Hematocrit Stat 03/23/24 14:31 Consult to General Surgery Stat 03/23/24 14:56 Respiratory Panel (Film Array) Stat 03/23/24 15:42 Ictotest Urine Stat Urinalysis and Microscopic Stat Sodium Chloride (Normal Saline 0.9%) 1,000 mls @ 125 mls/hr IV CONT APOLINAR Last Admin: 03/23/24 14:51 Dose: 125 mls/hr Documented By: MPO Sodium Chloride (Normal Saline 0.9%) 1,000 mls @ 500 mls/hr IV BOLUS ONE Stop: 03/23/24 16:50 Last Admin: 03/23/24 14:54 Dose: 500 mls/hr Documented By: MPO Ondansetron HCl (Ondansetron 4 Mg/2 Ml Inj) 4 mg IV NOW PRN PRN Reason: Nausea And Vomiting Last Admin: 03/23/24 12:49 Dose: 4 mg Documented By: KAVITA Ondansetron HCl (Ondansetron 4 Mg Odt) 4 mg SL NOW PRN PRN Reason: Nausea And Vomiting Discontinued Medications Ceftriaxone Sodium 1,000 mg/ (Sodium Chloride) 100 mls @ 200 mls/hr IV NOW ONE Stop: 03/23/24 12:39 Last Infusion: 03/23/24 13:20 Dose: Infused Documented By: Admin: 03/23/24 12:50 Dose: 200 mls/hr Documented By: KAVITA Acetaminophen (Ofirmev) 1,000 mg in 100 mls @ 400 mls/hr IV NOW ONE Stop: 03/23/24 12:52 Last Infusion: 03/23/24 13:20 Dose: Infused Documented By: Admin: 03/23/24 12:51 Dose: 400 mls/hr Documented By: KAVITA Sodium Chloride (Normal Saline 0.9%) 1,000 mls @ 1,000 mls/hr IV BOLUS ONE Stop: 03/23/24 14:23 Last Infusion: 03/23/24 14:20 Dose: Infused Documented By: Admin: 03/23/24 13:28 Dose: 1,000 mls/hr Documented By: RLS Levofloxacin (Levaquin) 750 mg in 150 mls @ 100 mls/hr IV NOW ONE Stop: 03/23/24 16:00 Last Admin: 03/23/24 14:51 Dose: 100 mls/hr Documented By: KALLIE Lidocaine HCl (Lidocaine 2% (Glydo) 6 Ml Gel) 6 ml TOP NOW ONE Stop: 03/23/24 15:18 Last Admin: 03/23/24 15:22 Dose: 6 ml Documented By: KAVITA Metoprolol Succinate (Metoprolol Er 25 Mg Tablet) 25 mg PO NOW ONE Stop: 03/23/24 14:13 Last Admin: 03/23/24 14:55 Dose: Not Given Documented By: KALLIE Pantoprazole Sodium (Pantoprazole 40 Mg Vial) 80 mg IV NOW ONE Stop: 03/23/24 12:16 Last Admin: 03/23/24 12:40 Dose: Not Given Documented By: KAVITA Pantoprazole Sodium (Pantoprazole 40 Mg Vial) 80 mg IV NOW ONE Stop: 03/23/24 12:15 Last Admin: 03/23/24 12:51 Dose: 80 mg Documented By: KAVITA Vital Signs Vital signs: Vital Signs - 8 hr 03/23/24 12:15 03/23/24 12:15 03/23/24 12:16 Temperature Pulse Rate 133 H Respiratory Rate 24 Blood Pressure 133/64 Pulse Oximetry 94 92 Oxygen Delivery Method Nasal Cannula Oxygen Flow Rate 2 03/23/24 12:16 03/23/24 12:18 03/23/24 12:21 Temperature 101.1 F H Pulse Rate 133 H Respiratory Rate 20 Blood Pressure 133/64 135/64 131/67 Pulse Oximetry 93 Oxygen Delivery Method Room Air Oxygen Flow Rate 03/23/24 12:21 03/23/24 12:30 03/23/24 12:30 Temperature Pulse Rate 133 H 134 H Respiratory Rate 23 30 H Blood Pressure 122/72 Pulse Oximetry 92 95 Oxygen Delivery Method Nasal Cannula Oxygen Flow Rate 2 03/23/24 12:45 03/23/24 12:45 03/23/24 13:00 Temperature Pulse Rate 135 H 135 H Respiratory Rate 18 14 Blood Pressure 112/62 Pulse Oximetry 94 93 Oxygen Delivery Method Nasal Cannula Oxygen Flow Rate 2 03/23/24 13:00 03/23/24 13:15 03/23/24 13:15 Temperature Pulse Rate 135 H Respiratory Rate 18 Blood Pressure 102/55 L 100/55 L Pulse Oximetry 94 Oxygen Delivery Method Oxygen Flow Rate 03/23/24 13:21 03/23/24 13:21 03/23/24 13:23 Temperature Pulse Rate 137 H Respiratory Rate 24 Blood Pressure 91/55 L 88/55 L Pulse Oximetry 94 Oxygen Delivery Method Oxygen Flow Rate 03/23/24 13:25 03/23/24 13:25 03/23/24 13:27 Temperature Pulse Rate 135 H 135 H Respiratory Rate 29 H 26 H Blood Pressure 86/51 L Pulse Oximetry 94 94 Oxygen Delivery Method Nasal Cannula Oxygen Flow Rate 2 03/23/24 13:27 03/23/24 13:29 03/23/24 13:29 Temperature Pulse Rate 134 H Respiratory Rate 21 Blood Pressure 82/49 L 87/53 L Pulse Oximetry 95 Oxygen Delivery Method Oxygen Flow Rate 03/23/24 13:30 03/23/24 13:30 03/23/24 13:32 Temperature Pulse Rate 134 H 133 H Respiratory Rate 11 L 29 H Blood Pressure 84/52 L Pulse Oximetry 95 94 Oxygen Delivery Method Oxygen Flow Rate 03/23/24 13:32 03/23/24 13:35 03/23/24 13:35 Temperature Pulse Rate 133 H Respiratory Rate Blood Pressure 86/53 L 80/52 L Pulse Oximetry 95 Oxygen Delivery Method Oxygen Flow Rate 03/23/24 13:36 03/23/24 13:36 03/23/24 13:39 Temperature Pulse Rate 133 H Respiratory Rate 10 L Blood Pressure 83/56 L 92/53 L Pulse Oximetry 95 Oxygen Delivery Method Oxygen Flow Rate 03/23/24 13:39 03/23/24 13:40 03/23/24 13:41 Temperature Pulse Rate 133 H 133 H Respiratory Rate 29 H 29 H Blood Pressure 88/54 L Pulse Oximetry 96 96 Oxygen Delivery Method Oxygen Flow Rate 03/23/24 13:41 03/23/24 13:43 03/23/24 13:43 Temperature Pulse Rate 133 H 133 H Respiratory Rate 29 H 23 Blood Pressure 85/54 L Pulse Oximetry 95 96 Oxygen Delivery Method Oxygen Flow Rate 03/23/24 13:45 03/23/24 13:45 03/23/24 13:47 Temperature Pulse Rate 126 H 126 H Respiratory Rate 12 38 H Blood Pressure 119/56 L Pulse Oximetry 96 97 Oxygen Delivery Method Oxygen Flow Rate 03/23/24 13:47 03/23/24 13:50 03/23/24 13:50 Temperature Pulse Rate 128 H Respiratory Rate 28 H Blood Pressure 97/44 L 83/52 L Pulse Oximetry 96 Oxygen Delivery Method Oxygen Flow Rate 03/23/24 13:51 03/23/24 13:51 03/23/24 13:52 Temperature Pulse Rate 128 H 128 H Respiratory Rate 28 H 26 H Blood Pressure 88/52 L Pulse Oximetry 94 96 Oxygen Delivery Method Oxygen Flow Rate 03/23/24 13:52 03/23/24 13:54 03/23/24 13:54 Temperature Pulse Rate 129 H Respiratory Rate 18 Blood Pressure 88/52 L 89/51 L Pulse Oximetry 95 Oxygen Delivery Method Oxygen Flow Rate 03/23/24 13:55 03/23/24 13:56 03/23/24 13:56 Temperature Pulse Rate 129 H 129 H Respiratory Rate 27 H 22 Blood Pressure 89/53 L Pulse Oximetry 96 95 Oxygen Delivery Method Oxygen Flow Rate 03/23/24 13:58 03/23/24 13:58 03/23/24 14:00 Temperature Pulse Rate 129 H 129 H Respiratory Rate 23 22 Blood Pressure 90/52 L Pulse Oximetry 96 96 Oxygen Delivery Method Oxygen Flow Rate 03/23/24 14:00 03/23/24 14:02 03/23/24 14:02 Temperature Pulse Rate 129 H Respiratory Rate 28 H Blood Pressure 93/51 L 87/52 L Pulse Oximetry 97 Oxygen Delivery Method Oxygen Flow Rate 03/23/24 14:04 03/23/24 14:04 03/23/24 14:05 Temperature Pulse Rate 129 H 129 H Respiratory Rate 24 24 Blood Pressure 88/50 L Pulse Oximetry 96 96 Oxygen Delivery Method Oxygen Flow Rate 03/23/24 14:06 03/23/24 14:06 03/23/24 14:08 Temperature Pulse Rate 128 H Respiratory Rate 24 Blood Pressure 87/51 L 91/54 L Pulse Oximetry 96 Oxygen Delivery Method Oxygen Flow Rate 03/23/24 14:08 03/23/24 14:10 03/23/24 14:10 Temperature Pulse Rate 128 H 128 H Respiratory Rate 21 23 Blood Pressure 92/53 L Pulse Oximetry 97 97 Oxygen Delivery Method Oxygen Flow Rate 03/23/24 14:15 03/23/24 14:20 03/23/24 14:20 Temperature Pulse Rate 129 H 130 H Respiratory Rate 28 H 26 H Blood Pressure 91/51 L Pulse Oximetry 97 98 Oxygen Delivery Method Nasal Cannula Oxygen Flow Rate 2 03/23/24 14:25 03/23/24 14:25 03/23/24 14:30 Temperature Pulse Rate 132 H 132 H Respiratory Rate 28 H 23 Blood Pressure 85/54 L Pulse Oximetry 96 96 Oxygen Delivery Method Oxygen Flow Rate 03/23/24 14:30 03/23/24 14:35 03/23/24 14:35 Temperature Pulse Rate 132 H Respiratory Rate 23 Blood Pressure 84/48 L 82/53 L Pulse Oximetry 95 Oxygen Delivery Method Oxygen Flow Rate 03/23/24 14:40 03/23/24 14:40 03/23/24 14:45 Temperature Pulse Rate 132 H Respiratory Rate 23 Blood Pressure 86/51 L 85/52 L Pulse Oximetry 94 Oxygen Delivery Method Nasal Cannula Oxygen Flow Rate 2 03/23/24 14:45 03/23/24 14:50 03/23/24 14:50 Temperature Pulse Rate 132 H 133 H Respiratory Rate 25 H 21 Blood Pressure 73/47 L Pulse Oximetry 95 95 Oxygen Delivery Method Oxygen Flow Rate 03/23/24 14:55 03/23/24 14:55 03/23/24 15:00 Temperature Pulse Rate 131 H 130 H Respiratory Rate 25 H 24 Blood Pressure 83/51 L Pulse Oximetry 96 97 Oxygen Delivery Method Oxygen Flow Rate 03/23/24 15:00 03/23/24 15:05 03/23/24 15:06 Temperature Pulse Rate 130 H 130 H Respiratory Rate 28 H 30 H Blood Pressure 90/56 L Pulse Oximetry 95 91 Oxygen Delivery Method Oxygen Flow Rate 03/23/24 15:06 03/23/24 15:08 03/23/24 15:08 Temperature Pulse Rate 130 H Respiratory Rate 35 H Blood Pressure 77/61 L 103/60 Pulse Oximetry 98 Oxygen Delivery Method Room Air Oxygen Flow Rate 03/23/24 15:10 03/23/24 15:10 03/23/24 15:15 Temperature Pulse Rate 130 H 130 H Respiratory Rate 31 H 26 H Blood Pressure 98/58 L Pulse Oximetry 97 98 Oxygen Delivery Method Oxygen Flow Rate 03/23/24 15:15 03/23/24 15:20 03/23/24 15:20 Temperature Pulse Rate 130 H Respiratory Rate 35 H Blood Pressure 110/59 L 101/58 L Pulse Oximetry 99 Oxygen Delivery Method Oxygen Flow Rate 03/23/24 15:25 03/23/24 15:25 03/23/24 15:30 Temperature Pulse Rate 131 H 130 H Respiratory Rate 24 Blood Pressure 102/57 L Pulse Oximetry 97 96 Oxygen Delivery Method Room Air Oxygen Flow Rate 03/23/24 15:30 03/23/24 15:35 03/23/24 15:35 Temperature 98.1 F Pulse Rate 130 H Respiratory Rate 25 H Blood Pressure 99/56 L 101/60 Pulse Oximetry 97 Oxygen Delivery Method Oxygen Flow Rate 03/23/24 15:40 03/23/24 15:40 03/23/24 15:45 Temperature 98.4 F 98.8 F Pulse Rate 130 H 130 H Respiratory Rate 24 Blood Pressure 94/58 L Pulse Oximetry 97 96 Oxygen Delivery Method Oxygen Flow Rate 03/23/24 15:45 Temperature Pulse Rate Respiratory Rate Blood Pressure 95/56 L Pulse Oximetry Oxygen Delivery Method Oxygen Flow Rate MDM - GI Bleed Lab Data Attestation: I reviewed the patient's lab results. 03/23/24 14:30 03/23/24 12:24 Labs: Lab Results 03/23/24 03/23/24 03/23/24 Range/Units 12:24 12:30 14:30 WBC 13.8 H (4.5-11.0) X10^3/uL RBC 3.79 L (4.5-5.9) X10^6/uL Hgb 12.3 L 11.1 L (13.5-17.5) g/dL Hct 36.0 L 32.9 L (41-53) % MCV 95.0 (80-100) fL MCH 32.5 (26-34) PG MCHC 34.2 (30-36) % RDW 12.6 (11.6-14.8) % Plt Count 213 (150-400) X10^3/uL Neut % (Auto) 87.5 H (50-75) % Lymph % (Auto) 3.3 L (25-40) % [place] % (Auto) 9.0 (3-14) % Eos % (Auto) 0.0 L (2-4) % Baso % (Auto) 0.2 (0-2) % Neut # (Auto) 06625 H (2143-1320) /uL Lymph # (Auto) 500 L (4563-5525) /uL [place] # (Auto) 1200 H (0-900) /uL Eos # (Auto) 0 (0-450) /uL Baso # (Auto) 0 (0-100) /uL PT 26.2 H (9.4-12.5) SECONDS INR 2.3 H (0.9-1.3) APTT 34 (25.1-36.5) SECONDS Sodium 133 L (137-145) mmol/L Potassium 3.7 (3.4-5.1) mmol/L Chloride 104 (98-107) mmol/L Carbon Dioxide 18 L (22-32) mmol/L BUN 28 H (9-20) mg/dL Creatinine 1.32 H (0.66-1.25) mg/dL Estimated GFR 55 L (>60) mL/min BUN/Creatinine Ratio 21.2 (6-22) Glucose 123 H (80-110) mg/dL Lactate 2.0 (0.7-2.1) mmol/L Calcium 8.3 L (8.4-10.2) mg/dL Total Bilirubin 2.0 H (0.2-1.3) mg/dL AST 27 (17-59) IU/L ALT 17 (<50) IU/L Alkaline Phosphatase 54 (38-126) U/L Total Protein 6.9 (6.3-8.2) g/dL Albumin 3.7 (3.5-5.0) g/dL Globulin 3.2 (1.7-4.1) g/dL Albumin/Globulin Ratio 1.2 (1.0-2.8) Lipase 53 (23-300) U/L Procalcitonin 0.653 H (<0.5) ng/mL Urine Color Urine Appearance Urine pH (4.5-8.0) Ur Specific Thor (1.000-1.035) Urine Protein (Negative) Urine Glucose (UA) (Negative) g/dL Urine Ketones (NEGATIVE) Urine Occult Blood (Negative) Urine Nitrate (Negative) Urine Bilirubin (NEGATIVE) Ur Bilirubin Confirm (Negative) Urine Urobilinogen (0.2) E.U./dL Ur Leukocyte Esterase (NEGATIVE) Chlamy pneumoniae PCR (Not Detect) Adenovirus (PCR) (Not Detect) B.parapertussis DNA PCR (Not Detecte) Coronavirus OC43 (PCR) (Not Detect) Coronavirus HKU1 (PCR) (Not Detect) Coronavirus 229E (PCR) (Not Detect) SARS-CoV-2 (PCR) (Not Detecte) Coronavirus NL63 (PCR) (Not Detect) Human Metapneumovir PCR (Not Detect) Influenza Type A (PCR) (Not Detect) Influenza Type B (PCR) (Not Detect) M. pneumoniae (PCR) (Not Detect) Parainfluenza 1 (PCR) (Not Detect) Parainfluenza 2 (PCR) (Not Detect) Parainfluenza 3 (PCR) (Not Detect) Parainfluenza 4 (PCR) (Not Detect) RSV (PCR) (Not Detect) Entero/Rhino (PCR) (Not Detect) Blood Type A Positive Antibody Screen Negative 03/23/24 03/23/24 Range/Units 14:56 15:42 WBC (4.5-11.0) X10^3/uL RBC (4.5-5.9) X10^6/uL Hgb (13.5-17.5) g/dL Hct (41-53) % MCV (80-100) fL MCH (26-34) PG MCHC (30-36) % RDW (11.6-14.8) % Plt Count (150-400) X10^3/uL Neut % (Auto) (50-75) % Lymph % (Auto) (25-40) % [place] % (Auto) (3-14) % Eos % (Auto) (2-4) % Baso % (Auto) (0-2) % Neut # (Auto) (4189-9091) /uL Lymph # (Auto) (1372-8519) /uL [place] # (Auto) (0-900) /uL Eos # (Auto) (0-450) /uL Baso # (Auto) (0-100) /uL PT (9.4-12.5) SECONDS INR (0.9-1.3) APTT (25.1-36.5) SECONDS Sodium (137-145) mmol/L Potassium (3.4-5.1) mmol/L Chloride (98-107) mmol/L Carbon Dioxide (22-32) mmol/L BUN (9-20) mg/dL Creatinine (0.66-1.25) mg/dL Estimated GFR (>60) mL/min BUN/Creatinine Ratio (6-22) Glucose (80-110) mg/dL Lactate (0.7-2.1) mmol/L Calcium (8.4-10.2) mg/dL Total Bilirubin (0.2-1.3) mg/dL AST (17-59) IU/L ALT (<50) IU/L Alkaline Phosphatase (38-126) U/L Total Protein (6.3-8.2) g/dL Albumin (3.5-5.0) g/dL Globulin (1.7-4.1) g/dL Albumin/Globulin Ratio (1.0-2.8) Lipase (23-300) U/L Procalcitonin (<0.5) ng/mL Urine Color Day Urine Appearance Clear Urine pH 5.5 (4.5-8.0) Ur Specific Thor 1.010 (1.000-1.035) Urine Protein 1+ H (Negative) Urine Glucose (UA) Negative (Negative) g/dL Urine Ketones Trace H (NEGATIVE) Urine Occult Blood Negative (Negative) Urine Nitrate Negative (Negative) Urine Bilirubin 1+ H (NEGATIVE) Ur Bilirubin Confirm Negative (Negative) Urine Urobilinogen 1.0 (0.2) E.U./dL Ur Leukocyte Esterase Negative (NEGATIVE) Chlamy pneumoniae PCR Not detected (Not Detect) Adenovirus (PCR) Not detected (Not Detect) B.parapertussis DNA PCR Not detected (Not Detecte) Coronavirus OC43 (PCR) Not detected (Not Detect) Coronavirus HKU1 (PCR) Not detected (Not Detect) Coronavirus 229E (PCR) Not detected (Not Detect) SARS-CoV-2 (PCR) Not detected (Not Detecte) Coronavirus NL63 (PCR) Not detected (Not Detect) Human Metapneumovir PCR Not detected (Not Detect) Influenza Type A (PCR) Not detected (Not Detect) Influenza Type B (PCR) Not detected (Not Detect) M. pneumoniae (PCR) Not detected (Not Detect) Parainfluenza 1 (PCR) Not detected (Not Detect) Parainfluenza 2 (PCR) Not detected (Not Detect) Parainfluenza 3 (PCR) Not detected (Not Detect) Parainfluenza 4 (PCR) Not detected (Not Detect) RSV (PCR) Not detected (Not Detect) Entero/Rhino (PCR) Not detected (Not Detect) Blood Type Antibody Screen Imaging Data Chest x-ray: Radiologist's Impression: PROCEDURE: XR CHEST 1V INDICATIONS: eval for PNA TECHNIQUE: One view of the chest was acquired. COMPARISON: [facility], , XR CHEST 1V, 02/15/2024, 14:49. FINDINGS: Surgical changes and devices: None. Lungs and pleura: Poor inspiratory effort limiting evaluation. Mild appearance of retrocardiac opacity. Mediastinum: Mediastinal contours appear normal. Heart size is enlarged. Bones and chest wall: No suspicious bony lesions. Overlying soft tissues appear unremarkable. IMPRESSION: Mild retrocardiac opacities. This could be developing pneumonia. However, poor inspiratory effort is present and could also represent atelectatic change. CT scan - abdomen/pelvis: Radiologist's Impression: PROCEDURE: CT ANGIO ABD/PEL GI BLEED INDICATIONS: GI bleed TECHNIQUE: After the administration of intravenous contrast, 2.5 mm thick sections acquired from the diaphragm to the symphysis. 10 mm maximum-intensity projection (MIP) reformats were then acquired. For radiation dose reduction, the following was used: automated exposure control. COMPARISON: None. FINDINGS: Image Quality: Diagnostic. Abdominal aorta: No aortic aneurysm or evidence of acute aortic syndrome. Mesenteric arteries: Patent without hemodynamically significant stenosis. Renal arteries: Patent without hemodynamically significant stenosis. OTHER: Lower Chest: Streaky opacities are present within the right base atelectasis Liver: No solid mass. Gallbladder: No radiopaque gallstones or wall thickening. Biliary ducts: No biliary dilation. Pancreas: No ductal dilation. Spleen: Size is within normal limits. Adrenal Glands: No adrenal nodules. Kidneys and Ureters: No hydronephrosis. No solid mass. No complex renal cystic lesion which requires follow up. Renal atrophy. Bilateral nonobstructing calculi. Both kidneys demonstrate duplicated collecting systems with atrophy most significant in the lower pole moiety. 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 A 7 mm calcification at the left ureterovesicular junction Hounsfield units measuring 1068. Stomach and Bowel: No obstruction. There is a focus of marked luminal narrowing within the distal sigmoid colon best seen on series 9, image 125. Luminal contrast is present on noncontrast images, likely from prior exam with contrast administration. However, this may have been done in outside institution as it is not visible internally. Peritoneum: No abnormal intraperitoneal fluid. No free air. Ventral Wall: No hernia. Abdominal Nodes: No retroperitoneal or mesenteric adenopathy by size criteria. Vessels: Aorta and inferior vena cava are normal in size. PELVIS: Pelvic Organs: Unremarkable. Bladder: Unremarkable. Pelvic Nodes: No enlarged lymph nodes. Miscellaneous: No inguinal hernias are seen. Inferior perirectal/perineal fluid collection is noted to the left of midline measuring approximately 1.6 cm within the subcutaneous fat. There is subcutaneous air identified as well as stranding. Bones: No aggressive osseous abnormality. Multilevel degenerative changes including compression deformity at L2 appearing. IMPRESSION: Inferior perirectal/perineal inflammatory change with fluid collection and air most consistent with abscess. High-grade luminal short segment narrowing within the sigmoid colon. Finding is concerning for colon mass and further evaluation with colonoscopy is recommended. Diverticulosis. Distal left ureteral calculus at the ureterovesicular junction without obstruction. ECG Data Attestation: I personally reviewed and interpreted this ECG as follows: Interpretation: Sinus tachycardia Ventricular rate 133 Left axis deviation Right bundle-branch block No ST T wave changes MDM Narrative Medical decision making narrative: Febrile tachycardic, leukocytosis upon arrival. Has had soft blood pressures which seemed to be responded to fluids. Does have a elevation in his creatinine. I suspect that patient needs to be fluid resuscitated in his an acute injury because of all of the diarrhea that he has been having. He was Hemoccult negative although is having black colored stool. Has been taking Pepto-Bismol because of his nausea for the past several days. All of his discomfort is in his rectum. He was no abdominal pain, chest pain, shortness of breath. Chest x-ray shows potential signs of pneumonia. His respiratory panel was negative. Clear lung exam. Not hypoxic. No cough. Clinically does not have pneumonia. He states he did have a ?respiratory infection? a few weeks ago but that all seems to have improved. A CT scan of his abdomen and pelvis show thickening of the sigmoid colon concerning for malignancy. He also has a small perirectal/perianal abscess. He has no hemorrhoids on rectal exam. He does have some excoriation which I suspect is causing a lot of his discomfort. I discussed the case with Dr. Conroy on-call for General surgery who evaluated the patient here in the emergency department. Patient is allergic to penicillins. He was initially given Rocephin upon arrival. This was then switched to Levaquin which would cover any potential respiratory source and also cover the rectal infections. I then discussed the case with Dr. De Luna he was on-call for the patient's primary doctor who will admit for further evaluation. Discussed the need for admission with the patient and his who expressed understanding and agreement as well. Patient remained persistently tachycardic. Upon further evaluation review of the EKG I feel that this is a sinus tachycardia not in AFib/a flutter. We will hold on cardioversion for now. I suspect that his blood pressures related to fluid resuscitation and is infection. No pressors were started here in the ER. Had 2 large-bore IVs which were sufficient for now. Critical Care Time Critical Care Time Critical Care Time: Yes Total Critical Care Time: 40 Attestation: The high probability of a clinically significant, sudden or life threatening deterioration of the [cardiovascular, respiratory, GI] system(s) required my full and direct attention, intervention and personal management. The aggregate critical care time was [40] minutes. This time is in addition to time spent performing reported procedures but includes the following: [x] Data Review and interpretation [x] Patient assessment and monitoring of vital signs [x] Documentation [x] Medication orders and management Discharge Plan Departure Patient Disposition: Admitted As Inpatient Clinical Impression: Perirectal abscess, Mass of colon, Tachycardia Admit Date/Time: 03/23/24 15:59 Admit Provider: Lou De Luna
--- NOTE | 2024-03-23 12:37 | DI.RAD.S_ITS ---
PROCEDURE: XR CHEST 1V INDICATIONS: eval for PNA TECHNIQUE: One view of the chest was acquired. COMPARISON: [facility], CR, XR CHEST 1V, 02/15/2024, 14:49. FINDINGS: Surgical changes and devices: None. Lungs and pleura: Poor inspiratory effort limiting evaluation. Mild appearance of retrocardiac opacity. Mediastinum: Mediastinal contours appear normal. Heart size is enlarged. Bones and chest wall: No suspicious bony lesions. Overlying soft tissues appear unremarkable. IMPRESSION: Mild retrocardiac opacities. This could be developing pneumonia. However, poor inspiratory effort is present and could also represent atelectatic change. Dictated by: Cammy Miranda M.D. on 03/23/2024 at 12:57 Approved by: Cammy Miranda M.D. on 03/23/2024 at 12:57
[2024-03-23 12:38] LABS: Add Manual Diff / Slide Review NO; Basophils Absolute Auto 0 /uL (0-100); Basophils Percent Auto 0.2 % (0-2); Eosinophils Absolute Auto 0 /uL (0-450); Hemoglobin 12.3 g/dL (13.5-17.5); Lymphocytes Absolute Auto 500 /uL (1100-4500); Lymphocytes Percent Auto 3.3 % (25-40); Mean Corpuscular HGB Conc 34.2 % (30-36); Mean Corpuscular Hemoglobin 32.5 PG (26-34); Monocytes Absolute Auto 1200 /uL (0-900); Neutrophils Absolute Auto 12100 /uL (1500-7000); Neutrophils Percent Auto 87.5 % (50-75); Platelet Count 213 X10^3/uL (150-400); Red Blood Cell Count 3.79 X10^6/uL (4.5-5.9); Red Cell Distribution Width 12.6 % (11.6-14.8); White Blood Cell Count 13.8 X10^3/uL (4.5-11.0)
[2024-03-23 12:47] LABS: INR 2.3 (0.9-1.3); Prothrombin Time 26.2 SECONDS (9.4-12.5)
[2024-03-23] MEDS: ONDANSETRON 4 MG/2 ML INJ IV (12:49)
[2024-03-23 12:50] LABS: PTT Partial Thromboplastin Tim 34 SECONDS (25.1-36.5)
[2024-03-23] MEDS: cefTRIAXone 1,000 MG in SODIUM CHLORIDE 0.9% 100 ML 200 MG IV (12:50)
[2024-03-23 12:51] LABS: Lipase 53 U/L (23-300)
[2024-03-23] MEDS: PANTOPRAZOLE 40 MG VIAL 80 MG IV (12:51)
[2024-03-23] MEDS: ACETAMINOPHEN IV 1,000 MG/100 ML VIAL 400 MG IV (12:51)
[2024-03-23 12:52] LABS: Alanine Aminotransferase 17 IU/L (<50); Albumin 3.7 g/dL (3.5-5.0); Albumin Globulin Ratio 1.2 (1.0-2.8); Alkaline Phosphatase 54 U/L (38-126); Aspartate Aminotransferase 27 IU/L (17-59); BUN Creatinine Ratio 21.2 (6-22); Blood Urea Nitrogen 28 mg/dL (9-20); Calcium 8.3 mg/dL (8.4-10.2); Carbon Dioxide 18 mmol/L (22-32); Chloride 104 mmol/L (98-107); Estimated Glomerular Filt Rate 55 mL/min (>60); Globulin 3.2 g/dL (1.7-4.1); Glucose 123 mg/dL (80-110); HEMOLYSIS 62 (0-50); Potassium 3.7 mmol/L (3.4-5.1); Sodium 133 mmol/L (137-145); Total Protein 6.9 g/dL (6.3-8.2)
[2024-03-23 13:08] LABS: Procalcitonin 0.653 ng/mL (<0.5)
[2024-03-23] MEDS: SODIUM CHLORIDE 0.9% 1,000 ML 1000 ML IV (13:28)
[2024-03-23 14:36] LABS: Hematocrit 32.9 % (41-53); Hemoglobin 11.1 g/dL (13.5-17.5)
--- NOTE | 2024-03-23 14:38 | P.CONS_ITS ---
History of Present Illness Consult details Date Patient Seen: 03/23/24 Time Patient Seen: 16:53 Chief complaint: Black tarry stools x 3 days Narrative: Clarke is a 78-year-old man PMH atrial fibrillation on chronic anticoagulation who presents to the hospital today with complaint of black tarry stool for the past 3 days. At admission and AFib with hypotension initial blood pressure 80/50. Here ports a generalized decline in health over the past several months with complaint of abdominal bloating and chronic diarrhea. On admission WBC 14, hematocrit 33, INR 2.3, creatinine 1.3. CT abdomen pelvis demonstrates a mass within the sigmoid colon inflammation of the perineal tissue with a 1 cm rectal abscess. His last colonoscopy was over 10 years ago he has a history of colonic polyps no family history of colon cancer. No history of abdominal surgery. He has had a right inguinal hernia repair and orthopedic procedure of his lower extremity which he tolerated without bleeding or anesthetic issues. He is quite deconditioned at this point has difficulty with his balance and poor exercise tolerance. No angina but signficant dyspnea on exertion. Meds Home Medications and Allergies Home Medications Medication Instructions Recorded Confirmed Type timolol 0.25 % eye drops drp EYE-BOTH 08/08/22 07/24/23 History rivaroxaban 20 mg tablet (Xarelto) 20 mg PO QPM #90 tabs 07/10/23 07/24/23 Rx losartan 50 mg tablet 50 mg PO BID #180 tabs 11/05/23 Rx metoprolol succinate 25 mg 12.5 mg (1/2 x 25 mg) PO BID #180 11/05/23 Rx tablet,extended release 24 hr tabs (Toprol XL) simvastatin 40 mg tablet 40 mg PO ONCE PM #90 tabs 03/17/24 Rx Allergies Allergy/AdvReac Type Severity Reaction Status Date / Time amoxicillin [AMOXICILLIN] Allergy Unknown Verified 02/15/24 14:44 codeine [CODEINE] Allergy Unknown NAUSEA Verified 02/15/24 14:44 Exam Vital Signs (past 8 hours): - 03/23/24 12:15 03/23/24 12:15 03/23/24 12:16 Temperature Pulse Rate 133 H Respiratory Rate 24 Blood Pressure 133/64 Pulse Oximetry 94 92 Oxygen Delivery Method Nasal Cannula Oxygen Flow Rate 2 03/23/24 12:16 03/23/24 12:18 03/23/24 12:21 Temperature 101.1 F H Pulse Rate 133 H Respiratory Rate 20 Blood Pressure 133/64 135/64 131/67 Pulse Oximetry 93 Oxygen Delivery Method Room Air Oxygen Flow Rate 03/23/24 12:21 03/23/24 12:30 03/23/24 12:30 Temperature Pulse Rate 133 H 134 H Respiratory Rate 23 30 H Blood Pressure 122/72 Pulse Oximetry 92 95 Oxygen Delivery Method Nasal Cannula Oxygen Flow Rate 2 03/23/24 12:45 03/23/24 12:45 03/23/24 13:00 Temperature Pulse Rate 135 H 135 H Respiratory Rate 18 14 Blood Pressure 112/62 Pulse Oximetry 94 93 Oxygen Delivery Method Nasal Cannula Oxygen Flow Rate 2 03/23/24 13:00 03/23/24 13:15 03/23/24 13:15 Temperature Pulse Rate 135 H Respiratory Rate 18 Blood Pressure 102/55 L 100/55 L Pulse Oximetry 94 Oxygen Delivery Method Oxygen Flow Rate 03/23/24 13:21 03/23/24 13:21 03/23/24 13:23 Temperature Pulse Rate 137 H Respiratory Rate 24 Blood Pressure 91/55 L 88/55 L Pulse Oximetry 94 Oxygen Delivery Method Oxygen Flow Rate 03/23/24 13:25 03/23/24 13:25 03/23/24 13:27 Temperature Pulse Rate 135 H 135 H Respiratory Rate 29 H 26 H Blood Pressure 86/51 L Pulse Oximetry 94 94 Oxygen Delivery Method Nasal Cannula Oxygen Flow Rate 2 03/23/24 13:27 03/23/24 13:29 03/23/24 13:29 Temperature Pulse Rate 134 H Respiratory Rate 21 Blood Pressure 82/49 L 87/53 L Pulse Oximetry 95 Oxygen Delivery Method Oxygen Flow Rate 03/23/24 13:30 03/23/24 13:30 03/23/24 13:32 Temperature Pulse Rate 134 H 133 H Respiratory Rate 11 L 29 H Blood Pressure 84/52 L Pulse Oximetry 95 94 Oxygen Delivery Method Oxygen Flow Rate 03/23/24 13:32 03/23/24 13:35 03/23/24 13:35 Temperature Pulse Rate 133 H Respiratory Rate Blood Pressure 86/53 L 80/52 L Pulse Oximetry 95 Oxygen Delivery Method Oxygen Flow Rate 03/23/24 13:36 03/23/24 13:36 03/23/24 13:39 Temperature Pulse Rate 133 H Respiratory Rate 10 L Blood Pressure 83/56 L 92/53 L Pulse Oximetry 95 Oxygen Delivery Method Oxygen Flow Rate 03/23/24 13:39 03/23/24 13:40 03/23/24 13:41 Temperature Pulse Rate 133 H 133 H Respiratory Rate 29 H 29 H Blood Pressure 88/54 L Pulse Oximetry 96 96 Oxygen Delivery Method Oxygen Flow Rate 03/23/24 13:41 03/23/24 13:43 03/23/24 13:43 Temperature Pulse Rate 133 H 133 H Respiratory Rate 29 H 23 Blood Pressure 85/54 L Pulse Oximetry 95 96 Oxygen Delivery Method Oxygen Flow Rate 03/23/24 13:45 03/23/24 13:45 03/23/24 13:47 Temperature Pulse Rate 126 H 126 H Respiratory Rate 12 38 H Blood Pressure 119/56 L Pulse Oximetry 96 97 Oxygen Delivery Method Oxygen Flow Rate 03/23/24 13:47 03/23/24 13:50 03/23/24 13:50 Temperature Pulse Rate 128 H Respiratory Rate 28 H Blood Pressure 97/44 L 83/52 L Pulse Oximetry 96 Oxygen Delivery Method Oxygen Flow Rate 03/23/24 13:51 03/23/24 13:51 03/23/24 13:52 Temperature Pulse Rate 128 H 128 H Respiratory Rate 28 H 26 H Blood Pressure 88/52 L Pulse Oximetry 94 96 Oxygen Delivery Method Oxygen Flow Rate 03/23/24 13:52 03/23/24 13:54 03/23/24 13:54 Temperature Pulse Rate 129 H Respiratory Rate 18 Blood Pressure 88/52 L 89/51 L Pulse Oximetry 95 Oxygen Delivery Method Oxygen Flow Rate 03/23/24 13:55 03/23/24 13:56 03/23/24 13:56 Temperature Pulse Rate 129 H 129 H Respiratory Rate 27 H 22 Blood Pressure 89/53 L Pulse Oximetry 96 95 Oxygen Delivery Method Oxygen Flow Rate 03/23/24 13:58 03/23/24 13:58 03/23/24 14:00 Temperature Pulse Rate 129 H 129 H Respiratory Rate 23 22 Blood Pressure 90/52 L Pulse Oximetry 96 96 Oxygen Delivery Method Oxygen Flow Rate 03/23/24 14:00 03/23/24 14:02 03/23/24 14:02 Temperature Pulse Rate 129 H Respiratory Rate 28 H Blood Pressure 93/51 L 87/52 L Pulse Oximetry 97 Oxygen Delivery Method Oxygen Flow Rate 03/23/24 14:04 07/07/24 14:04 03/23/24 14:05 Temperature Pulse Rate 129 H 129 H Respiratory Rate 24 24 Blood Pressure 88/50 L Pulse Oximetry 96 96 Oxygen Delivery Method Oxygen Flow Rate 03/23/24 14:06 03/23/24 14:06 03/23/24 14:08 Temperature Pulse Rate 128 H Respiratory Rate 24 Blood Pressure 87/51 L 91/54 L Pulse Oximetry 96 Oxygen Delivery Method Oxygen Flow Rate 03/23/24 14:08 Temperature Pulse Rate 128 H Respiratory Rate 21 Blood Pressure Pulse Oximetry 97 Oxygen Delivery Method Oxygen Flow Rate Oxygen Delivery Method Nasal Cannula Oxygen Flow Rate 2 Narrative Exam Narrative: General elderly man alert oriented no acute distress Chest nonlabored respiration Cardiac atrial fibrillation on monitor. Abdomen mild distention nontender. Rectum inflamed danny rectal/perineal tissue no discrete abscess palpable. Objective Labs 03/23/24 14:30 03/23/24 12:24 Labs: Laboratory Results - last 24 hr 03/23/24 03/23/24 03/23/24 12:24 12:30 14:30 WBC 13.8 H RBC 3.79 L Hgb 12.3 L 11.1 L Hct 36.0 L 32.9 L MCV 95.0 MCH 32.5 MCHC 34.2 RDW 12.6 Plt Count 213 Neut % (Auto) 87.5 H Lymph % (Auto) 3.3 L [place] % (Auto) 9.0 Eos % (Auto) 0.0 L Baso % (Auto) 0.2 Neut # (Auto) 57329 H Lymph # (Auto) 500 L [place] # (Auto) 1200 H Eos # (Auto) 0 Baso # (Auto) 0 PT 26.2 H INR 2.3 H APTT 34 Sodium 133 L Potassium 3.7 Chloride 104 Carbon Dioxide 18 L BUN 28 H Creatinine 1.32 H Estimated GFR 55 L BUN/Creatinine Ratio 21.2 Glucose 123 H Lactate 2.0 Calcium 8.3 L Total Bilirubin 2.0 H AST 27 ALT 17 Alkaline Phosphatase 54 Total Protein 6.9 Albumin 3.7 Globulin 3.2 Albumin/Globulin Ratio 1.2 Lipase 53 Procalcitonin 0.653 H Blood Type A Positive Antibody Screen Negative [facility] Medical History Atrial flutter Trichilemmoma Compound fracture (1963) Gout (Unknown) Rheumatic fever (Unknown) Chickenpox (Unknown) Measles (Unknown) Cataracts, bilateral (~2007) Vertigo (2010) Kidney stones (1993) Irregular heart beat (~195) Hyperlipemia (2010) Hypertension (Unknown) Heart failure (2010) Surgical History Hx of umbilical hernia repair (05/2007) Hx of inguinal hernia surgery (12/2004) History of kidney surgery (1993) Hx of cataract surgery (2008) Status post knee surgery (06/14/07) Family History Father Heart disease Tobacco & Substance Use Smoking Status: Never smoker Assessment & Plan Assessment and plan (1) Mass of colon: Status: Acute Assessment & Plan narrative: Clarke is a 78-year-old man PMH atrial fibrillation on chronic anticoagulation hypertension who has a near obstructing distal colon mass. CT A/P reviewed there is report of a 1 cm perirectal abscess but nothing apparent on exam the perirectal tissue is extremely indurated a result of his chronic obstructive diarrhea. I had a lengthy discussion with the patient and his was at his bedside in regards to the findings of the CT scan. I explained to him that he has an obstructing distal colon mass most likely a colon cancer. He will need admission to the hospital for control of his atrial fibrillation. Plan to perform a bowel prep him tomorrow for colonoscopy Sunday 03/25 and likely laparoscopic-assisted colectomy the following day. In regards to workup for colon cancer there is no evidence of distant metastatic disease on the CT abdomen pelvis however he will need CT chest to rule out pulmonary metastatic disease which has been ordered. A CEA level has been ordered to complete his staging. In regards to his anticoagulation we will hold oral anticoagulation starting now. If he requires anticoagulation between now and endoscopy and/or surgery he may be placed on a heparin drip. PPI for GI bleed presumably upper no EGD necessary at this time Anticipate hospitalization for the next 5-7 days and likely discharge to SNF Time-Based Coding :: [TOTAL MINUTES] spent with patient and on the chart (including review of chart, obtaining history, exam, reviewing outside data, placing orders, documenting exam and treatment plan, and counseling patient) on [DATE].
[2024-03-23] MEDS: SODIUM CHLORIDE 0.9% 1,000 ML 125 ML IV (14:51)
[2024-03-23] MEDS: levoFLOXacin 750 MG/150 ML PIGGYBACK 100 MG IV (14:51)
[2024-03-23] MEDS: SODIUM CHLORIDE 0.9% 1,000 ML 500 ML IV (14:54)
[2024-03-23] MEDS: LIDOCAINE 2% (GLYDO) 6 ML GEL TOP (15:22)
[2024-03-23 15:49] LABS: Adenovirus Not Detected (Not Detect); B. parapertussis Not Detected (Not Detecte); Bordetella pertussis Not Detected (Not Detect); Chlamydophila pneumoniae Not Detected (Not Detect); Coronavirus 229E Not Detected (Not Detect); Coronavirus HKU1 Not Detected (Not Detect); Coronavirus NL 63 Not Detected (Not Detect); Coronavirus OC43 Not Detected (Not Detect); Human Metapneumovirus Not Detected (Not Detect); Human Rhinovirus/Enterovirus Not Detected (Not Detect); Influenza A Not Detected (Not Detect); Influenza B Not Detected (Not Detect); Mycoplasma pneumoniae Not Detected (Not Detect); Parainfluenza Virus 1 Not Detected (Not Detect); Parainfluenza Virus 2 Not Detected (Not Detect); Parainfluenza Virus 3 Not Detected (Not Detect); Parainfluenza Virus 4 Not Detected (Not Detect); Respiratory Syncytial Virus Not Detected (Not Detect); SARS- CoV-2 Not Detected (Not Detecte)
--- NOTE | 2024-03-23 15:50 | PC.NURSE ---
pt has a large scrotum. states that is new for him. tolerated temp sensing morales without incident
[2024-03-23 15:54] LABS: Appearance Urine UA CLEAR; Bilirubin Urine UA 1+ (NEGATIVE); Glucose Urine UA NEGATIVE (Negative); Ketones Urine UA TRACE (NEGATIVE); Leukocyte Esterase Urine UA NEGATIVE (NEGATIVE); Nitrite Urine UA NEGATIVE (Negative); Occult Blood Urine UA NEGATIVE (Negative); Protein Urine UA 1+ (Negative); pH Urine UA 5.5 (4.5-8.0)
[2024-03-23 15:56] LABS: Color Urine UA ORANGE
[2024-03-23 15:57] LABS: Ictotest Urine Negative (Negative)
[2024-03-23 16:02] LABS: Bacteria Urine Few (2-10); RBC Urine None Seen (0-5/HPF); Squamous Epithelial Cell Urine 0-1 /HPF (0-5/HPF); Urine Volume 10mL (spun); WBC Urine None Seen (0-5/HPF)
[2024-03-23 16:03] LABS: Amorphous Sediment Urine 1+; Culture Indicated Urine Cult Not Indicated; Granular Casts Urine 0-1/LPF; Hyaline Casts Urine 0-1/LPF; Mucus Urine 1+ (Negative)
--- NOTE | 2024-03-23 16:08 | P.HP_ITS ---
History of Present Illness History of Present Illness Date Patient Seen: 03/23/24 Time Patient Seen: 16:08 Date of Onset of Symptoms: 03/23/24 Chief complaint: Black tarry stools x 3 days Narrative: 78 yo M with hx of A. flutter on Xeralto presenting with rectal pain and diarrhea. Diarrhea started about 2 weeks ago and has been off and on since then but continuous over the last 6-7 days. Stools are dark in color and tarry. He does not have abdominal pain. The rectal pain has been present throughout as well. This does not seem to be getting better. He did have a fever today but otherwise has been afebrile. His notes that he had a cough and congestion starting about 2 weeks ago as well but this seems to have improved since then. At this time he notes nausea but no vomiting and no abdominal pain. he denies cough and congestion today. He is feeling off but no cchest pain, lightheadedness or dizziness On admission WBC 14, hematocrit 33, INR 2.3, creatinine 1.3. CT abdomen pelvis demonstrates a mass within the sigmoid colon inflammation of the perineal tissue with a 1 cm rectal abscess. His last colonoscopy was over 10 years ago he has a history of colonic polyps no family history of colon cancer. [facility] Medical History Atrial flutter Trichilemmoma Compound fracture (1963) Gout (Unknown) Rheumatic fever (Unknown) Chickenpox (Unknown) Measles (Unknown) Cataracts, bilateral (~2007) Vertigo (2010) Kidney stones (1993) Irregular heart beat (~1955) Hyperlipemia (2010) Hypertension (Unknown) Heart failure (2010) Surgical History Hx of umbilical hernia repair (05/2007) Hx of inguinal hernia surgery (12/2004) History of kidney surgery (1993) Hx of cataract surgery (2008) Status post knee surgery (06/14/07) Family History Father Heart disease Social History Smoking Status: Never smoker Meds Home Medications and Allergies Home Medications Medication Instructions Recorded Confirmed Type timolol 0.25 % eye drops drp EYE-BOTH 08/08/22 07/24/23 History rivaroxaban 20 mg tablet (Xarelto) 20 mg PO QPM #90 tabs 07/10/23 07/24/23 Rx losartan 50 mg tablet 50 mg PO BID #180 tabs 11/05/23 Rx metoprolol succinate 25 mg 12.5 mg (1/2 x 25 mg) PO BID #180 11/05/23 Rx tablet,extended release 24 hr tabs (Toprol XL) simvastatin 40 mg tablet 40 mg PO ONCE PM #90 tabs 03/17/24 Rx Allergies Allergy/AdvReac Type Severity Reaction Status Date / Time amoxicillin [AMOXICILLIN] Allergy Unknown Verified 02/15/24 14:44 codeine [CODEINE] Allergy Unknown NAUSEA Verified 02/15/24 14:44 Review of Systems Review of Systems Narrative: + nausea + fever (first noted on arrival to ER) + diarrhea - changes in mentation (although disagrees) - abd pain + rectal pain - blood in stool + change in stool color (black) - lightheadedness/dizziness - chest pain - SOB Exam Vital Signs (past 8 hours): - 03/23/24 12:15 03/23/24 12:15 03/23/24 12:16 Temperature Pulse Rate 133 H Respiratory Rate 24 Blood Pressure 133/64 Pulse Oximetry 94 92 Oxygen Delivery Method Nasal Cannula Oxygen Flow Rate 2 03/23/24 12:16 03/23/24 12:18 03/23/24 12:21 Temperature 101.1 F H Pulse Rate 133 H Respiratory Rate 20 Blood Pressure 133/64 135/64 131/67 Pulse Oximetry 93 Oxygen Delivery Method Room Air Oxygen Flow Rate 03/23/24 12:21 03/23/24 12:30 03/23/24 12:30 Temperature Pulse Rate 133 H 134 H Respiratory Rate 23 30 H Blood Pressure 122/72 Pulse Oximetry 92 95 Oxygen Delivery Method Nasal Cannula Oxygen Flow Rate 2 03/23/24 12:45 03/23/24 12:45 03/23/24 13:00 Temperature Pulse Rate 135 H 135 H Respiratory Rate 18 14 Blood Pressure 112/62 Pulse Oximetry 94 93 Oxygen Delivery Method Nasal Cannula Oxygen Flow Rate 2 03/23/24 13:00 03/23/24 13:15 03/23/24 13:15 Temperature Pulse Rate 135 H Respiratory Rate 18 Blood Pressure 102/55 L 100/55 L Pulse Oximetry 94 Oxygen Delivery Method Oxygen Flow Rate 03/23/24 13:21 03/23/24 13:21 03/23/24 13:23 Temperature Pulse Rate 137 H Respiratory Rate 24 Blood Pressure 91/55 L 88/55 L Pulse Oximetry 94 Oxygen Delivery Method Oxygen Flow Rate 03/23/24 13:25 03/23/24 13:25 03/23/24 13:27 Temperature Pulse Rate 135 H 135 H Respiratory Rate 29 H 26 H Blood Pressure 86/51 L Pulse Oximetry 94 94 Oxygen Delivery Method Nasal Cannula Oxygen Flow Rate 2 03/23/24 13:27 03/23/24 13:29 03/23/24 13:29 Temperature Pulse Rate 134 H Respiratory Rate 21 Blood Pressure 82/49 L 87/53 L Pulse Oximetry 95 Oxygen Delivery Method Oxygen Flow Rate 03/23/24 13:30 03/23/24 13:30 03/23/24 13:32 Temperature Pulse Rate 134 H 133 H Respiratory Rate 11 L 29 H Blood Pressure 84/52 L Pulse Oximetry 95 94 Oxygen Delivery Method Oxygen Flow Rate 03/23/24 13:32 03/23/24 13:35 03/23/24 13:35 Temperature Pulse Rate 133 H Respiratory Rate Blood Pressure 86/53 L 80/52 L Pulse Oximetry 95 Oxygen Delivery Method Oxygen Flow Rate 03/23/24 13:36 03/23/24 13:36 03/23/24 13:39 Temperature Pulse Rate 133 H Respiratory Rate 10 L Blood Pressure 83/56 L 92/53 L Pulse Oximetry 95 Oxygen Delivery Method Oxygen Flow Rate 03/23/24 13:39 03/23/24 13:40 03/23/24 13:41 Temperature Pulse Rate 133 H 133 H Respiratory Rate 29 H 29 H Blood Pressure 88/54 L Pulse Oximetry 96 96 Oxygen Delivery Method Oxygen Flow Rate 03/23/24 13:41 03/23/24 13:43 03/23/24 13:43 Temperature Pulse Rate 133 H 133 H Respiratory Rate 29 H 23 Blood Pressure 85/54 L Pulse Oximetry 95 96 Oxygen Delivery Method Oxygen Flow Rate 03/23/24 13:45 03/23/24 13:45 03/23/24 13:47 Temperature Pulse Rate 126 H 126 H Respiratory Rate 12 38 H Blood Pressure 119/56 L Pulse Oximetry 96 97 Oxygen Delivery Method Oxygen Flow Rate 03/23/24 13:47 03/23/24 13:50 03/23/24 13:50 Temperature Pulse Rate 128 H Respiratory Rate 28 H Blood Pressure 97/44 L 83/52 L Pulse Oximetry 96 Oxygen Delivery Method Oxygen Flow Rate 03/23/24 13:51 03/23/24 13:51 03/23/24 13:52 Temperature Pulse Rate 128 H 128 H Respiratory Rate 28 H 26 H Blood Pressure 88/52 L Pulse Oximetry 94 96 Oxygen Delivery Method Oxygen Flow Rate 03/23/24 13:52 03/23/24 13:54 03/23/24 13:54 Temperature Pulse Rate 129 H Respiratory Rate 18 Blood Pressure 88/52 L 89/51 L Pulse Oximetry 95 Oxygen Delivery Method Oxygen Flow Rate 03/23/24 13:55 03/23/24 13:56 03/23/24 13:56 Temperature Pulse Rate 129 H 129 H Respiratory Rate 27 H 22 Blood Pressure 89/53 L Pulse Oximetry 96 95 Oxygen Delivery Method Oxygen Flow Rate 03/23/24 13:58 03/23/24 13:58 03/23/24 14:00 Temperature Pulse Rate 129 H 129 H Respiratory Rate 23 22 Blood Pressure 90/52 L Pulse Oximetry 96 96 Oxygen Delivery Method Oxygen Flow Rate 03/23/24 14:00 03/23/24 14:02 03/23/24 14:02 Temperature Pulse Rate 129 H Respiratory Rate 28 H Blood Pressure 93/51 L 87/52 L Pulse Oximetry 97 Oxygen Delivery Method Oxygen Flow Rate 03/23/24 14:04 03/23/24 14:04 03/23/24 14:05 Temperature Pulse Rate 129 H 129 H Respiratory Rate 24 24 Blood Pressure 88/50 L Pulse Oximetry 96 96 Oxygen Delivery Method Oxygen Flow Rate 03/23/24 14:06 03/23/24 14:06 03/23/24 14:08 Temperature Pulse Rate 128 H Respiratory Rate 24 Blood Pressure 87/51 L 91/54 L Pulse Oximetry 96 Oxygen Delivery Method Oxygen Flow Rate 03/23/24 14:08 03/23/24 14:10 03/23/24 14:10 Temperature Pulse Rate 128 H 128 H Respiratory Rate 21 23 Blood Pressure 92/53 L Pulse Oximetry 97 97 Oxygen Delivery Method Oxygen Flow Rate 03/23/24 14:15 03/23/24 14:20 03/23/24 14:20 Temperature Pulse Rate 129 H 130 H Respiratory Rate 28 H 26 H Blood Pressure 91/51 L Pulse Oximetry 97 98 Oxygen Delivery Method Nasal Cannula Oxygen Flow Rate 2 03/23/24 14:25 03/23/24 14:25 03/23/24 14:30 Temperature Pulse Rate 132 H 132 H Respiratory Rate 28 H 23 Blood Pressure 85/54 L Pulse Oximetry 96 96 Oxygen Delivery Method Oxygen Flow Rate 03/23/24 14:30 03/23/24 14:35 03/23/24 14:35 Temperature Pulse Rate 132 H Respiratory Rate 23 Blood Pressure 84/48 L 82/53 L Pulse Oximetry 95 Oxygen Delivery Method Oxygen Flow Rate 03/23/24 14:40 03/23/24 14:40 03/23/24 14:45 Temperature Pulse Rate 132 H Respiratory Rate 23 Blood Pressure 86/51 L 85/52 L Pulse Oximetry 94 Oxygen Delivery Method Nasal Cannula Oxygen Flow Rate 2 03/23/24 14:45 03/23/24 14:50 03/23/24 14:50 Temperature Pulse Rate 132 H 133 H Respiratory Rate 25 H 21 Blood Pressure 73/47 L Pulse Oximetry 95 95 Oxygen Delivery Method Oxygen Flow Rate 03/23/24 14:55 03/23/24 14:55 03/23/24 15:00 Temperature Pulse Rate 131 H 130 H Respiratory Rate 25 H 24 Blood Pressure 83/51 L Pulse Oximetry 96 97 Oxygen Delivery Method Oxygen Flow Rate 03/23/24 15:00 03/23/24 15:05 03/23/24 15:06 Temperature Pulse Rate 130 H 130 H Respiratory Rate 28 H 30 H Blood Pressure 90/56 L Pulse Oximetry 95 91 Oxygen Delivery Method Oxygen Flow Rate 03/23/24 15:06 03/23/24 15:08 03/23/24 15:08 Temperature Pulse Rate 130 H Respiratory Rate 35 H Blood Pressure 77/61 L 103/60 Pulse Oximetry 98 Oxygen Delivery Method Room Air Oxygen Flow Rate 03/23/24 15:10 03/23/24 15:10 03/23/24 15:15 Temperature Pulse Rate 130 H 130 H Respiratory Rate 31 H 26 H Blood Pressure 98/58 L Pulse Oximetry 97 98 Oxygen Delivery Method Oxygen Flow Rate 03/23/24 15:15 03/23/24 15:20 03/23/24 15:20 Temperature Pulse Rate 130 H Respiratory Rate 35 H Blood Pressure 110/59 L 101/58 L Pulse Oximetry 99 Oxygen Delivery Method Oxygen Flow Rate 03/23/24 15:25 03/23/24 15:25 03/23/24 15:30 Temperature Pulse Rate 131 H 130 H Respiratory Rate 24 Blood Pressure 102/57 L Pulse Oximetry 97 96 Oxygen Delivery Method Room Air Oxygen Flow Rate 03/23/24 15:30 03/23/24 15:35 03/23/24 15:35 Temperature 98.1 F Pulse Rate 130 H Respiratory Rate 25 H Blood Pressure 99/56 L 101/60 Pulse Oximetry 97 Oxygen Delivery Method Oxygen Flow Rate 03/23/24 15:40 03/23/24 15:40 03/23/24 15:45 Temperature 98.4 F 98.8 F Pulse Rate 130 H 130 H Respiratory Rate 24 Blood Pressure 94/58 L Pulse Oximetry 97 96 Oxygen Delivery Method Oxygen Flow Rate 03/23/24 15:45 Temperature Pulse Rate Respiratory Rate Blood Pressure 95/56 L Pulse Oximetry Oxygen Delivery Method Oxygen Flow Rate Oxygen Delivery Method Room Air Oxygen Flow Rate 2 Narrative Exam Narrative: GEN: Healthy appearing, well-developed, NAD. PSYCH: Good Judgment. AOx3. Normal memory, mood, and affect HEENT: -Head: NC/AT -Eyes: No discharge or redness -Ears: External ears are normal. . -Nose: Normal nares. -Mouth and throat: MMM CV: warm and well perfused, regular rhythm, tachycardic to 120s LUNGS: CTAB, no w/r/c. ABD: Soft, NT/ND, NBS, no masses or organomegaly. SKIN: Warm, well perfused. No skin rashes or abnormal lesions MSK: No deformities EXT: No clubbing, cyanosis, or edema NEURO: grossly nml. No focal deficits Objective Imaging CT scan - abdomen: Radiologist's impression: CT abdomen/pelvis IMPRESSION: Inferior perirectal/perineal inflammatory change with fluid collection and air most consistent with abscess. High-grade luminal short segment narrowing within the sigmoid colon. Finding is concerning for colon mass and further evaluation with colonoscopy is recommended. Diverticulosis. Distal left ureteral calculus at the ureterovesicular junction without obstruction. Labs 03/23/24 14:30 03/23/24 12:24 Labs: Laboratory Results - last 24 hr 03/23/24 03/23/24 03/23/24 12:24 12:30 14:30 WBC 13.8 H RBC 3.79 L Hgb 12.3 L 11.1 L Hct 36.0 L 32.9 L MCV 95.0 MCH 32.5 MCHC 34.2 RDW 12.6 Plt Count 213 Neut % (Auto) 87.5 H Lymph % (Auto) 3.3 L [place] % (Auto) 9.0 Eos % (Auto) 0.0 L Baso % (Auto) 0.2 Neut # (Auto) 47994 H Lymph # (Auto) 500 L [place] # (Auto) 1200 H Eos # (Auto) 0 Baso # (Auto) 0 PT 26.2 H INR 2.3 H APTT 34 Sodium 133 L Potassium 3.7 Chloride 104 Carbon Dioxide 18 L BUN 28 H Creatinine 1.32 H Estimated GFR 55 L BUN/Creatinine Ratio 21.2 Glucose 123 H Lactate 2.0 Calcium 8.3 L Total Bilirubin 2.0 H AST 27 ALT 17 Alkaline Phosphatase 54 Total Protein 6.9 Albumin 3.7 Globulin 3.2 Albumin/Globulin Ratio 1.2 Lipase 53 Procalcitonin 0.653 H Urine Color Urine Appearance Urine pH Ur Specific [place] Urine Protein Urine Glucose (UA) Urine Ketones Urine Occult Blood Urine Nitrate Urine Bilirubin Ur Bilirubin Confirm Urine Urobilinogen Ur Leukocyte Esterase Urine RBC Urine WBC Ur Squamous Epith Cells Amorphous Sediment Urine Bacteria Hyaline Casts Granular Casts Urine Mucus Ur Culture Indicated? Vol Urine Centrifuged Chlamy pneumoniae PCR Adenovirus (PCR) B.parapertussis DNA PCR Coronavirus OC43 (PCR) Coronavirus HKU1 (PCR) Coronavirus 229E (PCR) SARS-CoV-2 (PCR) Coronavirus NL63 (PCR) Human Metapneumovir PCR Influenza Type A (PCR) Influenza Type B (PCR) M. pneumoniae (PCR) Parainfluenza 1 (PCR) Parainfluenza 2 (PCR) Parainfluenza 3 (PCR) Parainfluenza 4 (PCR) RSV (PCR) Entero/Rhino (PCR) Blood Type A Positive Antibody Screen Negative 03/23/24 03/23/24 14:56 15:42 WBC RBC Hgb Hct MCV MCH MCHC RDW Plt Count Neut % (Auto) Lymph % (Auto) [place] % (Auto) Eos % (Auto) Baso % (Auto) Neut # (Auto) Lymph # (Auto) [place] # (Auto) Eos # (Auto) Baso # (Auto) PT INR APTT Sodium Potassium Chloride Carbon Dioxide BUN Creatinine Estimated GFR BUN/Creatinine Ratio Glucose Lactate Calcium Total Bilirubin AST ALT Alkaline Phosphatase Total Protein Albumin Globulin Albumin/Globulin Ratio Lipase Procalcitonin Urine Color [place] Urine Appearance Clear Urine pH 5.5 Ur Specific [place] 1.010 Urine Protein 1+ H Urine Glucose (UA) Negative Urine Ketones Trace H Urine Occult Blood Negative Urine Nitrate Negative Urine Bilirubin 1+ H Ur Bilirubin Confirm Negative Urine Urobilinogen 1.0 Ur Leukocyte Esterase Negative Urine RBC None seen Urine WBC None seen Ur Squamous Epith Cells 0-1 /hpf Amorphous Sediment 1+ Urine Bacteria Few (2-10) H Hyaline Casts 0-1/lpf Granular Casts 0-1/lpf Urine Mucus 1+ H Ur Culture Indicated? Cult not indicated Vol Urine Centrifuged 10ml (spun) Chlamy pneumoniae PCR Not detected Adenovirus (PCR) Not detected B.parapertussis DNA PCR Not detected Coronavirus OC43 (PCR) Not detected Coronavirus HKU1 (PCR) Not detected Coronavirus 229E (PCR) Not detected SARS-CoV-2 (PCR) Not detected Coronavirus NL63 (PCR) Not detected Human Metapneumovir PCR Not detected Influenza Type A (PCR) Not detected Influenza Type B (PCR) Not detected M. pneumoniae (PCR) Not detected Parainfluenza 1 (PCR) Not detected Parainfluenza 2 (PCR) Not detected Parainfluenza 3 (PCR) Not detected Parainfluenza 4 (PCR) Not detected RSV (PCR) Not detected Entero/Rhino (PCR) Not detected Blood Type Antibody Screen Assessment & Plan Assessment and plan (1) Mass of colon: Status: Acute (2) History of atrial flutter: Status: Acute (3) Essential hypertension with goal blood pressure less than 140/90: Status: Chronic (4) Tachycardia: Status: Acute (5) Perirectal abscess: Status: Acute Plan 78 yo M presenting with diarrhea and rectal pain. CT on arrival suspicious for perirectal/perineal abscess as well as a high-grade luminal narrowing within the sigmoid colon which raises concern for colon CA. Pts las colon CA screening was 10 years ago. ## colon mass ## perirectal Abscess: concern for obstructing distal colon CA, plan for colonoscopy on Sunday and colectomy on Sunday with general surgery. No clear abscess needing drainage, localized inflammation thought to be 2/2 diarrhea. - Admit to inpt - General surgery consult, see Dr. Conroy's consult note - holding Anticoagulation for now - Pt denies significant pain but will add PRN medications to be available - PRN Zofran for nasuea ## Paroxysmal Atrial flutter ## on chronic anticoagulation with Xeralto: - [facility] to discuss anticoagulation, will hold Xeralto for now and start Heparin GTT to bridge - Continue rate control with Metoprolol, not due for dose until later this evening so will watch BPs for now and hopefully will be able to give Metoprolol if they continue to increase - If BPs still hypotensive, will control wtih amiodarone bolus over 30 min rather than 10 due to BP ## tachycardia: on arrival, rate improving slight but still elevated, rate is regular, clear P waves visible, suspect sinus tachy related to dehydration 2/2 diarrhea + pain + possible infection - IVF - tele for now, will reassess need in the AM ## Hypertension: Today slightly hypotensive but asx, suspect 2/2 dehydration from prolonged course of Diarrhea and poor PO intake - Hold home Losartan 50mg daily - Continue Metoprolol 25mg BID for rate control unless BPs drop too low, then transition to amiodarone Stable home conditions: HLD: continue statin Fluids: IVF running now due to mild hypotension Electrolytes: No severe electrolyte derangements Nutrition:NPO tomorrow at midnight Dispo: pending surgical management and recovery, anticipate >3 days DVT ppx: Heparin GTT due to A. fib and upcoming surgery Time-Based Coding :: [TOTAL MINUTES] spent with patient and on the chart (including review of chart, obtaining history, exam, reviewing outside data, placing orders, documenting exam and treatment plan, and counseling patient) on [DATE].
--- NOTE | 2024-03-23 16:47 | DI.CT.S_ITS ---
PROCEDURE: CT CHEST W CON INDICATIONS: staging colon cancer TECHNIQUE: After the administration of intravenous contrast, 5 mm thick sections acquired from the pulmonary apices to the posterior costophrenic angles. 1 mm axial lung, 5 mm thick coronal and sagittal reformats and 7 mm axial MIP were acquired. For radiation dose reduction, the following was used: automated exposure control, adjustment of mA and/or kV according to patient size. COMPARISON: None. FINDINGS: Image quality: Diagnostic. Lower Neck: No enlarged lymph nodes. Thyroid: No thyroid nodules which require sonographic follow up, per consensus guidelines. Axillae: No enlarged lymph nodes. Chest Wall: Unremarkable. Bones: Degenerative changes of the spine. Decreased osseous mineralization.. Lungs and Pleura: No pneumothorax or pleural effusions. Bibasilar atelectasis, right greater than left. Elevation of the right hemidiaphragm. Heart: Heart size is normal. Mild coronary artery calcifications. No pericardial effusion. Thoracic Vessels: The aorta and pulmonary arteries demonstrate normal size. Atherosclerotic vascular calcifications. Mediastinum and [place]: No enlarged lymph nodes. Esophagus: No wall thickening. No hiatal hernia. Upper Abdomen: Please refer to separately dictated CT of the abdomen pelvis. IMPRESSION: No evidence of metastatic disease within the chest. Dictated by: Nestor Lu M.D. on 03/23/2024 at 16:27 Approved by: Nestor Lu M.D. on 03/23/2024 at 16:29
[2024-03-23 17:32] LABS: Carcinoembryonic Antigen 1.5 ng/mL (0.1-3.0)
[2024-03-23] MEDS: HEPARIN DRIP 25,000 UNIT/500 ML IV.SOLN 35.924 UNIT IV (19:10)
--- NOTE | 2024-03-23 19:31 | PC.NURSE ---
called and spoke to Dr. De Luna about starting the Heparin gtt (dvt protocol) on patient. Xarelto to be held. would like to start the Heparin gtt since patient has afib and will be having surgery on .. Informed Dr. De Luna that the drip will be started a little after 0.
[2024-03-23] MEDS: OXYCODONE IR 5 MG TABLET PO (19:54)
[2024-03-23] MEDS: METOPROLOL ER 25 MG TABLET 12.5 MG PO (20:58)
[2024-03-23] MEDS: ATORVASTATIN 20 MG TABLET PO (20:59)
[2024-03-23 21:37] LABS: MRSA (Nasal) PCR NOT DETECTED (Not Detect)
[2024-03-24] VITALS (180 sets, daily range): BP systolic 79–173; BP diastolic 45–90; PULSE 128–138; RESP 8–48; TEMP 36.6–37.4; O2SAT 92–100
--- NOTE | 2024-03-24 00:29 | PC.NURSE ---
Addendum entered by Marianne De Souza R.N. 03/24/24 01:16: [id number]-Spoke with Dr. Jewell about HR 130s and BP 90s/50s MAP >65. She responded I spoke with the special effects artist and I'm okay with that tonight. Continue to monitor. Patient is A/Ox3, denies pain, dyspnea, or dizziness. Original Note: Admit Note-Patient brought to ICU room 226 at 1925. A/Ox4, little forgetful, is at bedside. Oxycodone 5mg given for perianal pain, ice packs also placed per patient request. HR 120s A-fib/flutter BBB, initial BP 102/51(68). Temp [place] 101.1, Temporal 99.1. Heparin infusing at 18units/kg/hr. NS @ 125ml/hr.
[2024-03-24 01:19] LABS: Add Manual Diff / Slide Review NO; Basophils Absolute Auto 0 /uL (0-100); Basophils Percent Auto 0.1 % (0-2); Eosinophils Absolute Auto 0 /uL (0-450); Eosinophils Percent Auto 0.1 % (2-4); Hematocrit 33.8 % (41-53); Hemoglobin 11.6 g/dL (13.5-17.5); Lymphocytes Absolute Auto 200 /uL (1100-4500); Lymphocytes Percent Auto 2.4 % (25-40); Mean Corpuscular HGB Conc 34.2 % (30-36); Mean Corpuscular Hemoglobin 31.9 PG (26-34); Mean Corpuscular Volume 93.2 fL (80-100); Monocytes Absolute Auto 400 /uL (0-900); Monocytes Percent Auto 5.3 % (3-14); Neutrophils Absolute Auto 7800 /uL (1500-7000); Neutrophils Percent Auto 92.1 % (50-75); Platelet Count 190 X10^3/uL (150-400); Red Blood Cell Count 3.63 X10^6/uL (4.5-5.9); Red Cell Distribution Width 12.6 % (11.6-14.8); White Blood Cell Count 8.5 X10^3/uL (4.5-11.0)
[2024-03-24 01:28] LABS: Alanine Aminotransferase 14 IU/L (<50); Albumin 2.8 g/dL (3.5-5.0); Albumin Globulin Ratio 0.9 (1.0-2.8); Alkaline Phosphatase 49 U/L (38-126); Aspartate Aminotransferase 21 IU/L (17-59); BUN Creatinine Ratio 18.9 (6-22); Bilirubin Total 0.9 mg/dL (0.2-1.3); Blood Urea Nitrogen 24 mg/dL (9-20); Calcium 7.5 mg/dL (8.4-10.2); Carbon Dioxide 21 mmol/L (22-32); Chloride 109 mmol/L (98-107); Estimated Glomerular Filt Rate 57 mL/min (>60); Glucose 97 mg/dL (80-110); HEMOLYSIS < 15 (0-50); Potassium 3.8 mmol/L (3.4-5.1); Sodium 133 mmol/L (137-145); Total Protein 5.8 g/dL (6.3-8.2)
[2024-03-24 01:29] LABS: PTT Partial Thromboplastin Tim 83 SECONDS (25.1-36.5)
[2024-03-24] MEDS: SODIUM CHLORIDE 0.9% 1,000 ML 125 ML IV ×3 (02:41→18:48)
[2024-03-24] MEDS: OXYCODONE IR 5 MG TABLET PO (02:49)
[2024-03-24] MEDS: ONDANSETRON 4 MG ODT SL (06:10)
[2024-03-24 07:29] LABS: PTT Partial Thromboplastin Tim 137 SECONDS (25.1-36.5)
--- NOTE | 2024-03-24 07:57 | PM.PN.1 ---
Subjective Subjective Date Patient Seen: 03/24/24 Time Patient Seen: 07:37 Interval history: Doing ok this morning, had some pain in his scrotum and perineal area overnight. took oxy 5mg x1 but it makes him feel nauseous and so he is trying to avoid. This morning still feeling nauseous and has some pain in the perineum and scrotum. Still have liquid stools, worried about starting the bowel prep. ROS: + nausea - fever + diarrhea - changes in mentation - abd pain + rectal pain - blood in stool + change in stool color (black) - lightheadedness/dizziness - chest pain - SOB Exam Vital Signs (past 8 hours): - 03/24/24 00:00 03/24/24 00:00 03/24/24 00:01 Temperature 99.4 F Pulse Rate Respiratory Rate Blood Pressure 101/46 L Pulse Oximetry Oxygen Delivery Method Room Air 03/24/24 00:01 03/24/24 00:15 03/24/24 00:30 Temperature Pulse Rate 138 H 138 H Respiratory Rate 48 H 26 H Blood Pressure 85/51 L Pulse Oximetry 96 93 Oxygen Delivery Method 03/24/24 00:30 03/24/24 00:31 03/24/24 00:31 Temperature Pulse Rate 138 H 138 H Respiratory Rate 26 H 27 H Blood Pressure 84/49 L Pulse Oximetry 95 95 Oxygen Delivery Method 03/24/24 00:33 03/24/24 00:33 03/24/24 00:35 Temperature Pulse Rate 138 H 138 H Respiratory Rate 36 H 48 H Blood Pressure 83/48 L Pulse Oximetry 95 95 Oxygen Delivery Method 03/24/24 00:35 03/24/24 01:00 03/24/24 01:00 Temperature Pulse Rate 138 H Respiratory Rate 30 H Blood Pressure 90/52 L 79/45 L Pulse Oximetry 96 Oxygen Delivery Method 03/24/24 01:05 03/24/24 01:05 03/24/24 01:12 Temperature Pulse Rate 138 H 138 H Respiratory Rate 28 H 32 H Blood Pressure 108/55 L Pulse Oximetry 94 94 Oxygen Delivery Method 03/24/24 01:30 03/24/24 01:30 03/24/24 02:00 Temperature Pulse Rate 138 H Respiratory Rate 26 H Blood Pressure 102/50 L 101/51 L Pulse Oximetry 92 Oxygen Delivery Method 03/24/24 02:00 03/24/24 02:01 03/24/24 02:30 Temperature Pulse Rate 137 H 137 H Respiratory Rate 27 H 26 H Blood Pressure 101/52 L Pulse Oximetry 97 96 Oxygen Delivery Method 03/24/24 02:30 03/24/24 03:00 03/24/24 03:00 Temperature Pulse Rate 137 H 135 H Respiratory Rate 26 H 26 H Blood Pressure 98/54 L Pulse Oximetry 93 95 Oxygen Delivery Method 03/24/24 03:30 03/24/24 03:30 03/24/24 04:00 Temperature Pulse Rate 132 H Respiratory Rate 18 Blood Pressure 93/54 L Pulse Oximetry 93 Oxygen Delivery Method Nasal Cannula 03/24/24 04:00 03/24/24 04:00 03/24/24 04:14 Temperature 99.4 F Pulse Rate 132 H 133 H Respiratory Rate 19 19 Blood Pressure 93/52 L Pulse Oximetry 98 94 Oxygen Delivery Method 03/24/24 04:30 03/24/24 04:30 03/24/24 05:00 Temperature Pulse Rate 133 H Respiratory Rate 19 Blood Pressure 99/53 L 96/54 L Pulse Oximetry 96 Oxygen Delivery Method 03/24/24 05:00 03/24/24 05:04 03/24/24 05:30 Temperature Pulse Rate 133 H 134 H 133 H Respiratory Rate 20 19 18 Blood Pressure Pulse Oximetry 97 97 95 Oxygen Delivery Method 03/24/24 05:30 03/24/24 06:00 03/24/24 06:00 Temperature Pulse Rate 131 H Respiratory Rate 28 H Blood Pressure 91/54 L 81/53 L Pulse Oximetry 95 Oxygen Delivery Method 03/24/24 06:03 03/24/24 06:03 03/24/24 06:30 Temperature Pulse Rate 131 H Respiratory Rate 20 Blood Pressure 94/52 L 94/51 L Pulse Oximetry 96 Oxygen Delivery Method 03/24/24 06:30 03/24/24 06:41 03/24/24 06:45 Temperature Pulse Rate 128 H 128 H 129 H Respiratory Rate 13 17 8 L Blood Pressure Pulse Oximetry 95 94 96 Oxygen Delivery Method 03/24/24 06:50 03/24/24 06:55 03/24/24 07:00 Temperature Pulse Rate 129 H 129 H Respiratory Rate 17 21 Blood Pressure 94/50 L Pulse Oximetry 94 97 Oxygen Delivery Method 03/24/24 07:00 03/24/24 07:05 03/24/24 07:10 Temperature Pulse Rate 129 H 128 H 128 H Respiratory Rate 22 16 16 Blood Pressure Pulse Oximetry 96 94 94 Oxygen Delivery Method 03/24/24 07:15 03/24/24 07:20 03/24/24 07:25 Temperature Pulse Rate 128 H 129 H 129 H Respiratory Rate 17 16 16 Blood Pressure Pulse Oximetry 95 98 100 Oxygen Delivery Method 03/24/24 07:30 03/24/24 07:30 03/24/24 07:35 Temperature Pulse Rate 129 H 129 H Respiratory Rate 18 19 Blood Pressure 109/53 L Pulse Oximetry 100 96 Oxygen Delivery Method Oxygen Delivery Method Nasal Cannula Oxygen Flow Rate 0 Narrative Exam Narrative: GEN: Healthy appearing, well-developed, NAD. PSYCH: Good Judgment. AOx3. Normal memory, mood, and affect HEENT: -Head: NC/AT -Eyes: No discharge or redness -Ears: External ears are normal. . -Nose: Normal nares. -Mouth and throat: MMM CV: warm and well perfused, regular rhythm, tachycardic to 120s LUNGS: CTAB, no w/r/c. SKIN: Warm, well perfused. No skin rashes or abnormal lesions MSK: No deformities EXT: No clubbing, cyanosis, or edema NEURO: grossly nml. No focal deficits Objective Labs 03/24/24 01:05 03/24/24 01:05 Labs: Laboratory Results - last 24 hr 03/23/24 03/23/24 03/23/24 12:24 12:30 14:30 WBC 13.8 H RBC 3.79 L Hgb 12.3 L 11.1 L Hct 36.0 L 32.9 L MCV 95.0 MCH 32.5 MCHC 34.2 RDW 12.6 Plt Count 213 Neut % (Auto) 87.5 H Lymph % (Auto) 3.3 L [place] % (Auto) 9.0 Eos % (Auto) 0.0 L Baso % (Auto) 0.2 Neut # (Auto) 04061 H Lymph # (Auto) 500 L [place] # (Auto) 1200 H Eos # (Auto) 0 Baso # (Auto) 0 PT 26.2 H INR 2.3 H APTT 34 Sodium 133 L Potassium 3.7 Chloride 104 Carbon Dioxide 18 L BUN 28 H Creatinine 1.32 H Estimated GFR 55 L BUN/Creatinine Ratio 21.2 Glucose 123 H Lactate 2.0 Calcium 8.3 L Total Bilirubin 2.0 H AST 27 ALT 17 Alkaline Phosphatase 54 Total Protein 6.9 Albumin 3.7 Globulin 3.2 Albumin/Globulin Ratio 1.2 Lipase 53 Carcinoembryonic Ag 1.5 Procalcitonin 0.653 H Urine Color Urine Appearance Urine pH Ur Specific [place] Urine Protein Urine Glucose (UA) Urine Ketones Urine Occult Blood Urine Nitrate Urine Bilirubin Ur Bilirubin Confirm Urine Urobilinogen Ur Leukocyte Esterase Urine RBC Urine WBC Ur Squamous Epith Cells Amorphous Sediment Urine Bacteria Hyaline Casts Granular Casts Urine Mucus Ur Culture Indicated? Vol Urine Centrifuged Nasal Screen MRSA (PCR) Chlamy pneumoniae PCR Adenovirus (PCR) B.parapertussis DNA PCR Coronavirus OC43 (PCR) Coronavirus HKU1 (PCR) Coronavirus 229E (PCR) SARS-CoV-2 (PCR) Coronavirus NL63 (PCR) Human Metapneumovir PCR Influenza Type A (PCR) Influenza Type B (PCR) M. pneumoniae (PCR) Parainfluenza 1 (PCR) Parainfluenza 2 (PCR) Parainfluenza 3 (PCR) Parainfluenza 4 (PCR) RSV (PCR) Entero/Rhino (PCR) Blood Type A Positive Antibody Screen Negative 03/23/24 03/23/24 03/23/24 14:56 15:42 19:55 WBC RBC Hgb Hct MCV MCH MCHC RDW Plt Count Neut % (Auto) Lymph % (Auto) [place] % (Auto) Eos % (Auto) Baso % (Auto) Neut # (Auto) Lymph # (Auto) [place] # (Auto) Eos # (Auto) Baso # (Auto) PT INR APTT Sodium Potassium Chloride Carbon Dioxide BUN Creatinine Estimated GFR BUN/Creatinine Ratio Glucose Lactate Calcium Total Bilirubin AST ALT Alkaline Phosphatase Total Protein Albumin Globulin Albumin/Globulin Ratio Lipase Carcinoembryonic Ag Procalcitonin Urine Color [place] Urine Appearance Clear Urine pH 5.5 Ur Specific [place] 1.010 Urine Protein 1+ H Urine Glucose (UA) Negative Urine Ketones Trace H Urine Occult Blood Negative Urine Nitrate Negative Urine Bilirubin 1+ H Ur Bilirubin Confirm Negative Urine Urobilinogen 1.0 Ur Leukocyte Esterase Negative Urine RBC None seen Urine WBC None seen Ur Squamous Epith Cells 0-1 /hpf Amorphous Sediment 1+ Urine Bacteria Few (2-10) H Hyaline Casts 0-1/lpf Granular Casts 0-1/lpf Urine Mucus 1+ H Ur Culture Indicated? Cult not indicated Vol Urine Centrifuged 10ml (spun) Nasal Screen MRSA (PCR) Not detected Chlamy pneumoniae PCR Not detected Adenovirus (PCR) Not detected B.parapertussis DNA PCR Not detected Coronavirus OC43 (PCR) Not detected Coronavirus HKU1 (PCR) Not detected Coronavirus 229E (PCR) Not detected SARS-CoV-2 (PCR) Not detected Coronavirus NL63 (PCR) Not detected Human Metapneumovir PCR Not detected Influenza Type A (PCR) Not detected Influenza Type B (PCR) Not detected M. pneumoniae (PCR) Not detected Parainfluenza 1 (PCR) Not detected Parainfluenza 2 (PCR) Not detected Parainfluenza 3 (PCR) Not detected Parainfluenza 4 (PCR) Not detected RSV (PCR) Not detected Entero/Rhino (PCR) Not detected Blood Type Antibody Screen 03/24/24 03/24/24 01:05 06:53 WBC 8.5 RBC 3.63 L Hgb 11.6 L Hct 33.8 L MCV 93.2 MCH 31.9 MCHC 34.2 RDW 12.6 Plt Count 190 Neut % (Auto) 92.1 H Lymph % (Auto) 2.4 L [place] % (Auto) 5.3 Eos % (Auto) 0.1 L Baso % (Auto) 0.1 Neut # (Auto) 7800 H Lymph # (Auto) 200 L [place] # (Auto) 400 Eos # (Auto) 0 Baso # (Auto) 0 PT INR APTT 83 H* D 137 H* D Sodium 133 L Potassium 3.8 Chloride 109 H Carbon Dioxide 21 L BUN 24 H Creatinine 1.27 H Estimated GFR 57 L BUN/Creatinine Ratio 18.9 Glucose 97 Lactate Calcium 7.5 L Total Bilirubin 0.9 AST 21 ALT 14 Alkaline Phosphatase 49 Total Protein 5.8 L Albumin 2.8 L Globulin 3.0 Albumin/Globulin Ratio 0.9 L Lipase Carcinoembryonic Ag Procalcitonin Urine Color Urine Appearance Urine pH Ur Specific [place] Urine Protein Urine Glucose (UA) Urine Ketones Urine Occult Blood Urine Nitrate Urine Bilirubin Ur Bilirubin Confirm Urine Urobilinogen Ur Leukocyte Esterase Urine RBC Urine WBC Ur Squamous Epith Cells Amorphous Sediment Urine Bacteria Hyaline Casts Granular Casts Urine Mucus Ur Culture Indicated? Vol Urine Centrifuged Nasal Screen MRSA (PCR) Chlamy pneumoniae PCR Adenovirus (PCR) B.parapertussis DNA PCR Coronavirus OC43 (PCR) Coronavirus HKU1 (PCR) Coronavirus 229E (PCR) SARS-CoV-2 (PCR) Coronavirus NL63 (PCR) Human Metapneumovir PCR Influenza Type A (PCR) Influenza Type B (PCR) M. pneumoniae (PCR) Parainfluenza 1 (PCR) Parainfluenza 2 (PCR) Parainfluenza 3 (PCR) Parainfluenza 4 (PCR) RSV (PCR) Entero/Rhino (PCR) Blood Type Antibody Screen [facility] Medical History Atrial flutter Trichilemmoma Compound fracture (1963) Gout (Unknown) Rheumatic fever (Unknown) Chickenpox (Unknown) Measles (Unknown) Cataracts, bilateral (~2007) Vertigo (2010) Kidney stones (1993) Irregular heart beat (~1955) Hyperlipemia (2010) Hypertension (Unknown) Heart failure (2010) Surgical History Hx of umbilical hernia repair (05/2007) Hx of inguinal hernia surgery (12/2004) History of kidney surgery (1993) Hx of cataract surgery (2008) Status post knee surgery (06/14/07) Family History Father Heart disease Social History household members: spouse Smoking Status: Never smoker alcohol intake: current Assessment & Plan Assessment and plan (1) Mass of colon: Status: Acute (2) Tachycardia: Status: Acute (3) Perirectal abscess: Status: Acute (4) Essential hypertension with goal blood pressure less than 140/90: Status: Chronic (5) History of atrial flutter: Status: Acute Plan 78 yo M presenting with diarrhea and rectal pain. CT on arrival suspicious for perirectal/perineal abscess as well as a high-grade luminal narrowing within the sigmoid colon which raises concern for colon CA. Pts last colon CA screening was 10 years ago and per his report, did show some polyps. ## colon mass ## perirectal Abscess: concern for obstructing distal colon CA, plan for colonoscopy on Sunday and colectomy on Sunday with general surgery. No clear abscess needing drainage, localized inflammation thought to be 2/2 diarrhea. - General surgery consult, see Dr. Conroy's consult note - holding Anticoagulation for now (see below) - Tylenol + ibuprofen for pain - PRN oxycodone available but pt prefers to avoid - Start bowel prep for colonoscopy - Remain NPO - PRN Zofran for nausea ## Paroxysmal Atrial flutter ## on chronic anticoagulation with Xeralto: - Continue to hold Xeralto for now and continue on Heparin GTT to bridge - Continue rate control with Metoprolol, BPs soft this AM, willr epeat IVF bolus - Plan to update pts primary cardiology ## tachycardia: on arrival, rate improving slight but still elevated, rate is regular, clear P waves visible, suspect sinus tachy related to dehydration 2/2 diarrhea + pain + possible infection - IVF at 150mg/hr - Repeat IVF bolus now - continue Tele - If Atrial flutter develops will consider digoxin ## Hypertension: Today slightly hypotensive but asx, suspect 2/2 dehydration from prolonged course of Diarrhea and poor PO intake - Hold home Losartan 50mg daily - Continue Metoprolol 12.5mg BID for rate control Time-Based Coding :: [TOTAL MINUTES] spent with patient and on the chart (including review of chart, obtaining history, exam, reviewing outside data, placing orders, documenting exam and treatment plan, and counseling patient) on [DATE].
[2024-03-24] MEDS: PANTOPRAZOLE 40 MG VIAL IV (08:38)
[2024-03-24] MEDS: METOPROLOL ER 25 MG TABLET 12.5 MG PO ×2 (08:39→17:03)
[2024-03-24] MEDS: ONDANSETRON 4 MG/2 ML INJ IV ×2 (09:12→12:54)
[2024-03-24] MEDS: HEPARIN DRIP 25,000 UNIT/500 ML IV.SOLN 31.933 UNIT IV (10:23)
[2024-03-24] MEDS: DERMOPLAST SPRAY 20% 60 ML 1 SPRAY TOP (12:53)
[2024-03-24] MEDS: LACTATED RINGERS 1,000 ML 1000 ML IV (13:49)
[2024-03-24] MEDS: PEG3350/SOD SULF,BICARB,CL/KCL 4,000 ML SOLUTION 4000 ML PO (14:06)
[2024-03-24 14:49] LABS: PTT Partial Thromboplastin Tim 133 SECONDS (25.1-36.5)
[2024-03-24] MEDS: ACETAMINOPHEN 325 MG TABLET 650 MG PO ×2 (17:02→23:04)
--- NOTE | 2024-03-24 17:11 | CM.DANOTE ---
Brief DCP Assessment note Pt is a 78yo M here with dark tarry stools, under the care of the surgical team and provider group. A mass was discovered on his colon. Plan is for pt to get colonoscopy Sunday and then pending those results, colectomy Sunday. PCP Daniel Arceo Payer [employer] Medicare and self pay SOIL ENGINEER reviewed EMR. Pt lives in [place] with spouse, Arminda. Per surgeon note, anticipates need for SNF dc when medically stable. Per nursing staff, pt spouse reports while normally pt ambulates indep, pt has been more unsteady on his feet lately. Likely would benefit from PT eval after surgical intervention. SOIL ENGINEER unable to meet with pt or family today due to triaging needs P: medical POC continues to unfold. CM team will follow closely. FIDE Cantrell Discharge Planning/Care Management CM Discharge Assessment Start: 03/24/24 17:10 Freq: Status: Active Protocol: Document 03/24/24 17:10 (Rec: 03/24/24 17:11 [id number]) Discharge Planning Assessment Assigned Profiling Machine Set Up Operator Tool FIDE Cespedes DPOA/Assigned Designee Name castillo Hilliard Contact Information [phone] Advance Directives? Yes Advance Directives on File No History Provided By Patient Prior Living Arrangements House Household Members spouse Independent with ADL's Yes Is patient alert and oriented? Yes Comment medical POC pending Discharge Plan Home Review Status In Process Please Provide Date Initial DC 03/24/24 Assessment Was Performed Next Review Type Continued Stay Review
--- NOTE | 2024-03-24 18:52 | PC.NURSE ---
Day shift: Pt A&Ox4, fatigued. Able to mobilize in bed. Hypotensive, tachycardic, provider aware. Tolerating PO. HR still in 130's as day progressed, normotensive. provider notified. New orders received. Care ongoing, will continue to monitor.
[2024-03-24] MEDS: METOPROLOL ER 25 MG TABLET PO (20:28)
[2024-03-24] MEDS: ATORVASTATIN 20 MG TABLET PO (20:29)
--- NOTE | 2024-03-24 21:46 | EKG_ITS ---
[address] [address] Test Date: 2024-03-25 Pat Name: Clarke Gatica Department: [facility] Room: 226 Gender: Male Loom Changer: TERRANCE : 1945 Requested By: Order Number: [id number] Reading MD: Rodolfo Lopez MD Measurements Intervals [place] Rate: 137 P: 206 AL: QRS: -87 QRSD: 140 T: -45 QT: 382 QTc: 576 Interpretive Statements Atrial flutter with 2:1 AV conduction Left axis deviation Right bundle branch block Possible Lateral infarct , age undetermined Inferior infarct , age undetermined Electronically Signed On 03-25-2024 7:27:43 PDT by Rodolfo Lopez MD
[2024-03-24 21:59] LABS: PTT Partial Thromboplastin Tim 85 SECONDS (25.1-36.5)
[2024-03-24] MEDS: POTASSIUM CHLORIDE IN WATER 10 MEQ/100 ML PIGGYBACK 100 MEQ IV (22:43)
[2024-03-24] MEDS: FUROSEMIDE 40 MG/4 ML VIAL IV (22:43)
[2024-03-25] VITALS (47 sets, daily range): BP systolic 121–173; BP diastolic 60–88; PULSE 132–138; RESP 12–43; TEMP 36.2–37.2; O2SAT 91–100
[2024-03-25] MEDS: POTASSIUM CHLORIDE IN WATER 10 MEQ/100 ML PIGGYBACK 100 MEQ IV (00:05)
[2024-03-25] MEDS: HEPARIN DRIP 25,000 UNIT/500 ML IV.SOLN 27.941 UNIT IV (01:59)
[2024-03-25 04:18] LABS: PTT Partial Thromboplastin Tim 89 SECONDS (25.1-36.5)
--- NOTE | 2024-03-25 06:20 | PC.NURSE ---
[employer] Director Note-Patient was awake most of the night drinking Golytly and using bedpan. Patient declined anymore around 0200, stools decreased around that time as well. Patient still has pain to perineum, requesting only Tylenol. Denies nausea. Dr. Ralph notified at 2134 about BP 170s/80s, HR continuing 130s, shortness of breath, audible wheezes with activity, and crackles in bases. Orders received to DC IVF, give IV Lasix 40mg now, repeat x1 in 4hrs if no results, 20meq K+ riders, and get non-urgent EKG. Lasix given at 2230, diuresed 1875ml, no audible wheezing, and shortness of breath decreased by am, BP 150s/60s, EKG obtained reading Atrial-flutter 2:1 conduction, rate 137. Heparin gtt at 14units/kg/hr, last two PTTs within goal range 85 and 89, IV site leaking scant blood, no other s/s bleeding, guaiac was negative. NPO for colonoscopy this afternoon.
[2024-03-25] MEDS: SODIUM CHLORIDE 0.9% FLUSH 10 ML IV (08:26)
[2024-03-25] MEDS: METOPROLOL ER 25 MG TABLET PO ×2 (08:26→21:04)
[2024-03-25] MEDS: PANTOPRAZOLE 40 MG VIAL IV (08:26)
--- NOTE | 2024-03-25 09:03 | P.PN_ITS ---
Subjective Subjective Date Patient Seen: 03/25/24 Interval history: Mr. Gamez is resting comfortably with at bedside. He reports being in relatively good spirits overall, anticipating colonoscopy this afternoon. notes his energy and overall countenance seems to be improving since admission. Still has some rectal discomfort, but grateful for nursing assistance in managing this. Some questions about the overall plan and how long he might be in the hospital. Wasn't really aware that he is back in atrial flutter. Recalls that he's required electrical shock multiple times to get converted back to sinus rhythm. Was offered ablation at one point but declined because he didn't feel comfortable with the procedure. Exam Vital Signs (past 8 hours): - 03/25/24 01:40 03/25/24 02:00 03/25/24 02:00 Temperature Pulse Rate 138 H 135 H Respiratory Rate 24 Blood Pressure 151/67 H Pulse Oximetry 98 96 Oxygen Delivery Method Nasal Cannula Oxygen Flow Rate 1 1 Fraction of Inspired Oxygen 24 03/25/24 03:00 03/25/24 03:00 03/25/24 04:00 Temperature 97.1 F L Pulse Rate 134 H 135 H Respiratory Rate 21 24 Blood Pressure 152/69 H Pulse Oximetry 98 98 Oxygen Delivery Method Oxygen Flow Rate 1 1 Fraction of Inspired Oxygen 03/25/24 04:00 03/25/24 04:00 03/25/24 05:00 Temperature Pulse Rate Respiratory Rate Blood Pressure 154/67 H 156/67 H Pulse Oximetry Oxygen Delivery Method Nasal Cannula Oxygen Flow Rate Fraction of Inspired Oxygen 03/25/24 05:00 03/25/24 06:00 03/25/24 06:00 Temperature Pulse Rate 135 H 138 H Respiratory Rate 24 24 Blood Pressure 156/68 H Pulse Oximetry 99 98 Oxygen Delivery Method Oxygen Flow Rate 1 1 Fraction of Inspired Oxygen 03/25/24 07:00 03/25/24 07:00 03/25/24 08:00 Temperature Pulse Rate 135 H Respiratory Rate 33 H Blood Pressure 147/65 H Pulse Oximetry 99 Oxygen Delivery Method Nasal Cannula Oxygen Flow Rate Fraction of Inspired Oxygen 03/25/24 08:00 03/25/24 08:00 Temperature Pulse Rate 134 H Respiratory Rate 21 Blood Pressure 147/64 H Pulse Oximetry 97 Oxygen Delivery Method Oxygen Flow Rate Fraction of Inspired Oxygen Fraction of Inspired Oxygen 24 SaO2/FiO2 Ratio 408 Oxygen Delivery Method Nasal Cannula Oxygen Flow Rate 1 Narrative Exam Narrative: General: Pleasant, NAD HEENT: NC/AT, EOMI, moist membranes CV: Tachycardic, regular rhythm, no m/g/r Resp: CTAB, comfortable WOB Abd: Soft, NTND, +BS Ext: No edema Skin: No rash or lesions noted Neuro: A&O x3, moves all extremities, no focal deficits Objective ECG Impression: Atrial flutter with 2:1 AV conduction Left axis deviation Right bundle branch block Possible Lateral infarct , age undetermined Inferior infarct , age undetermined Electronically Signed On 03-25-2024 7:27:43 PDT by Rodolfo Lopez MD Labs 03/24/24 01:05 03/24/24 01:05 Labs: Laboratory Results - last 24 hr 03/24/24 03/24/24 03/25/24 13:57 21:41 03:40 APTT 133 H* 85 H* D 89 H* PFSH Medical History Atrial flutter Trichilemmoma Compound fracture (1963) Gout (Unknown) Rheumatic fever (Unknown) Chickenpox (Unknown) Measles (Unknown) Cataracts, bilateral (~2007) Vertigo (2010) Kidney stones (1993) Irregular heart beat (~1955) Hyperlipemia (2010) Hypertension (Unknown) Heart failure (2010) Surgical History Hx of umbilical hernia repair (05/2007) Hx of inguinal hernia surgery (12/2004) History of kidney surgery (1993) Hx of cataract surgery (2008) Status post knee surgery (06/14/07) Family History Father Heart disease Social History household members: spouse Smoking Status: Never smoker alcohol intake: current Assessment & Plan Assessment and plan (1) Mass of colon: Status: Acute (2) Perirectal abscess: Status: Acute (3) Tachycardia: Status: Acute (4) History of atrial flutter: Status: Acute (5) Essential hypertension with goal blood pressure less than 140/90: Status: Chronic Assessment & Plan narrative: 78 yo M presenting with diarrhea and rectal pain. CT on arrival suspicious for perirectal/perineal abscess as well as a high-grade luminal narrowing within the sigmoid colon which raises concern for colon CA. Pts last colon CA screening was 10 years ago and per his report, did show some polyps. #Colon mass #Perirectal Abscess Concern for obstructing distal colon CA, plan for colonoscopy today and possible partial colectomy with general surgery tomorrow. No clear abscess needing drainage, localized inflammation thought to be 2/2 diarrhea. -Dr. Conroy (General Surgery) consulting, see previous note -NPO for colonoscopy today -Tylenol + ibuprofen for pain, zofran for nausea -Morphine IV prn, did not like how oxycodone made him feel #Paroxysmal atrial flutter #Tachycardia Flutter confirmed on EKG obtained overnight. On chart review, pt has required cardioversion x3 after not responding to medical therapy for flutter. Discussed w/critical care nurse practitioner physician for [facility] (Dr. Munoz). States okay to cardiovert as long as pt has been consistent w/AC and will continue for at least 1 month after conversion, with first week after procedure highest risk for embolism. -Metoprolol 50mg b.i.d. -Start digoxin IV q6h -mIVF at 150cc/hr -Holding Xarelto for now, heparin GTT until colonoscopy, possible surgery -Tele #Hypertension: -Metoprolol -Restart home Losartan 50mg daily Diet: NPO DVT ppx: Heparin PCP: Adis MDM: Dispo: Likely at least 3-4 days until discharge, final dispo pending post- procedure diagnosis Time-Based Coding :: 45 minutes spent with patient and on the chart (including review of chart, obtaining history, exam, reviewing outside data, placing orders, documenting exam and treatment plan, and counseling patient) on 03/25/2024. PROFEE Charge codes Subsequent inpatient/observation care: [id number]
--- NOTE | 2024-03-25 15:10 | CM.DPNOTE ---
DCP Note FILAMENT WELDER reviewed EMR. Per RN, colonoscopy planned for today at 1515. Results will help guide continued Medical POC. If indicated, plan is for colectomy Sunday. Will need PT eval when stable enough to participate, Sun vs . RN reports pt has not been OOB? P: Medical POC continues to develop. Follow for DCP recs/PT recs when able. FIDE Cantrell
--- NOTE | 2024-03-25 15:42 | PM.PREOP ---
Pre-operative Note Interval Note History & Physical reviewed/Exam performed by Physician: Yes Changes to H&P: No
[2024-03-25] MEDS: LACTATED RINGERS 1,000 ML 42 ML IV (15:53)
--- NOTE | 2024-03-25 16:19 | P.OP.COLON_ITS ---
Operative Date/Time/Diagnoses Date of procedure: 03/25/24 Time of procedure: 16:20 Pre-op diagnosis: Colonic stricture Post-op diagnosis: other (No evidence of colonic stricture) Procedure & Clinicians Study performed: Diagnostic colonoscopy Same procedure as scheduled: Yes Indications: 78-year-old male who had symptoms of obstructive colon disease and findings concerning for malignancy in the distal colon taken for diagnostic colonoscopy. Surgeon: Bony Conroy Procedure Notes Procedure in detail: The history and physical was performed/updated and the patient is ASA class is 2. The procedure was discussed in detail with the patient. Potential risks complications including infection, bleeding, missed diagnosis, perforation, need for surgery, and were explained. Their questions were answered and informed consent was obtained. Patient was brought to the procedure room and placed standard monitoring equipment. The patient's vital signs were monitored continuously throughout the entire procedure. Prior to starting time-out was performed. The patient was placed in the left lateral recumbent position. Procedural sedation was administered by anesthesia. Examination began with a thorough inspection of the perianal area there was no evidence of fissures, fistulae, external hemorrhoids or cutaneous malignancy. The colonoscopy scope was then placed into the anal canal and was advanced to the cecum, which was identified by the ileocecal valve, the appendiceal orifice and the confluence of the taenia. The scope was then slowly withdrawn examining colon thoroughly in all directions, irrigating it of any residual stool. The scope was retroflexed within the rectum The patient tolerated the procedure well. They will be discharged once criteria are met. The prep of poor quality. The withdrawl time was 6 minutes. FINDINGS * Extensive diverticulosis without stricture. * No intraluminal mass or polyps * Mild colitis no biopsies performed as anticoagulated
[2024-03-25] MEDS: MORPHINE 4 MG/ML INJ IV ×2 (16:53→22:59)
[2024-03-25] MEDS: DIGOXIN 500 MCG/2 ML AMPUL 250 MCG IV ×2 (16:54→21:10)
[2024-03-25] MEDS: RIVAROXABAN 10 MG TABLET 20 MG PO (21:04)
[2024-03-25] MEDS: LOSARTAN 50 MG TABLET PO (21:05)
[2024-03-25] MEDS: ATORVASTATIN 20 MG TABLET PO (21:05)
[2024-03-25] MEDS: ONDANSETRON 4 MG/2 ML INJ IV (22:35)
[2024-03-26] VITALS (21 sets, daily range): BP systolic 130–162; BP diastolic 67–81; PULSE 130–140; RESP 6–48; TEMP 36.7–37.5; O2SAT 91–99
[2024-03-26] MEDS: DIGOXIN 500 MCG/2 ML AMPUL 250 MCG IV (04:30)
[2024-03-26 05:39] LABS: INR 2.5 (0.9-1.3); Prothrombin Time 29.4 SECONDS (9.4-12.5)
[2024-03-26 05:40] LABS: BUN Creatinine Ratio 18.1 (6-22); Blood Urea Nitrogen 21 mg/dL (9-20); Calcium 7.6 mg/dL (8.4-10.2); Carbon Dioxide 26 mmol/L (22-32); Chloride 106 mmol/L (98-107); Estimated Glomerular Filt Rate > 60 mL/min (>60); Glucose 105 mg/dL (80-110); HEMOLYSIS < 15 (0-50); Magnesium 2.1 mg/dL (1.6-2.3); Potassium 3.6 mmol/L (3.4-5.1); Sodium 138 mmol/L (137-145)
[2024-03-26 05:46] LABS: Add Manual Diff / Slide Review NO; Basophils Absolute Auto 0 /uL (0-100); Basophils Percent Auto 0.1 % (0-2); Eosinophils Absolute Auto 0 /uL (0-450); Eosinophils Percent Auto 0.5 % (2-4); Hematocrit 33.2 % (41-53); Hemoglobin 11.6 g/dL (13.5-17.5); Lymphocytes Absolute Auto 500 /uL (1100-4500); Lymphocytes Percent Auto 5.3 % (25-40); Mean Corpuscular Hemoglobin 34.6 PG (26-34); Monocytes Absolute Auto 500 /uL (0-900); Monocytes Percent Auto 5.2 % (3-14); Neutrophils Absolute Auto 7800 /uL (1500-7000); Neutrophils Percent Auto 88.9 % (50-75); Platelet Count 216 X10^3/uL (150-400); Red Blood Cell Count 3.35 X10^6/uL (4.5-5.9); Red Cell Distribution Width 13.5 % (11.6-14.8); White Blood Cell Count 8.8 X10^3/uL (4.5-11.0)
[2024-03-26 05:47] LABS: Digoxin 0.7 ng/mL (0.8-2.0)
[2024-03-26 05:55] LABS: PTT Partial Thromboplastin Tim 32 SECONDS (25.1-36.5)
[2024-03-26 06:17] LABS: Thyroid Stimulating Hormone 2.35 uIU/mL (0.47-4.68)
[2024-03-26] MEDS: LACTATED RINGERS 1,000 ML 42 ML IV (06:40)
--- NOTE | 2024-03-26 08:04 | P.PN_ITS ---
Subjective Subjective Date Patient Seen: 03/26/24 Time Patient Seen: 07:41 Interval history: Sleeping comfortably. Main complaint this morning is pressure from scrotal swelling that is new/worsening over the past few days. Has Ross catheter in place, no issues with UOP. Colonoscopy did not reveal any mechanical obstruction or evidence, low suspicion for malignancy at this point per Dr. Conroy and surgery canceled. Continues in a flutter 130-140 beats per minute despite digoxin. Denies chest discomfort, shortness of breath, any sensation of palpitations. Patient states he had a conversation with someone before/during colonoscopy who indicated there is an alternative treatment for his recurrent paroxysmal flutter that does not involve ablation, but can not recall specifically what this might have been or who it was that a spoke to. Exam Vital Signs (past 8 hours): - 03/26/24 04:00 03/26/24 04:00 03/26/24 04:30 Temperature 98.3 F Pulse Rate 135 H 134 H Respiratory Rate 19 Blood Pressure 157/72 H 157/72 H Pulse Oximetry 95 Oxygen Delivery Method Nasal Cannula Oxygen Flow Rate 1 Fraction of Inspired Oxygen 21 SaO2/FiO2 Ratio 452 Oxygen Delivery Method Nasal Cannula Oxygen Flow Rate 1 Narrative Exam Narrative: General: Pleasant, NAD HEENT: NC/AT, EOMI, moist membranes CV: Tachycardic, regular rhythm, no m/g/r Resp: Mild wheezing bilaterally, comfortable WOB Abd: Soft, NTND, +BS : Scrotal edema Ext: No edema Skin: No rash or lesions noted Neuro: A&O x3, moves all extremities, no focal deficits Objective Labs 03/26/24 04:45 03/26/24 04:45 Labs: Laboratory Results - last 24 hr 03/26/24 04:45 WBC 8.8 RBC 3.35 L Hgb 11.6 L Hct 33.2 L MCV 99.0 D MCH 34.6 H MCHC 35.0 RDW 13.5 Plt Count 216 Neut % (Auto) 88.9 H Lymph % (Auto) 5.3 L [place] % (Auto) 5.2 Eos % (Auto) 0.5 L Baso % (Auto) 0.1 Neut # (Auto) 7800 H Lymph # (Auto) 500 L [place] # (Auto) 500 Eos # (Auto) 0 Baso # (Auto) 0 PT 29.4 H INR 2.5 H APTT 32 D Sodium 138 Potassium 3.6 Chloride 106 Carbon Dioxide 26 BUN 21 H Creatinine 1.16 Estimated GFR > 60 BUN/Creatinine Ratio 18.1 Glucose 105 Calcium 7.6 L Magnesium 2.1 TSH 2.35 Digoxin 0.7 L [facility] Medical History (Updated 03/26/24 @ 08:08 by Daniel Arceo MD) Atrial flutter Trichilemmoma Compound fracture (1963) Gout (Unknown) Rheumatic fever (Unknown) Chickenpox (Unknown) Measles (Unknown) Cataracts, bilateral (~2007) Vertigo (2010) Kidney stones (1993) Irregular heart beat (~1955) Hyperlipemia (2010) Hypertension (Unknown) Heart failure (2010) Surgical History Hx of umbilical hernia repair (05/2007) Hx of inguinal hernia surgery (12/2004) History of kidney surgery (1993) Hx of cataract surgery (2008) Status post knee surgery (06/14/07) Family History Father Heart disease Social History household members: spouse Smoking Status: Never smoker alcohol intake: current Assessment & Plan Assessment and plan (1) Atrial flutter: Problem details: 01/20/2023 EKG: Atrial flutter with 2-1 block and right bundle branch block. Normal TTE 05/03/2023. Qualifiers: Atrial flutter type: unspecified Qualified Code(s): I48.92 - Unspecified atrial flutter Status: Acute (2) Tachycardia: Status: Acute (3) Scrotal edema: Status: Acute (4) Mass of colon: Status: Acute (5) Perirectal abscess: Status: Acute (6) Essential hypertension with goal blood pressure less than 140/90: Status: Chronic Assessment & Plan narrative: 78yo male initially admitted with diarrhea, rectal pain, CT imaging concerning for colon cancer and subsequently developed persistent atrial flutter. #Paroxysmal atrial flutter #Tachycardia Persistent flutter confirmed on EKG. On chart review, pt has required cardioversion x3 after not responding to medical therapy. No improvement of rate control with digoxin. Discussed w/professional system administrator physician for [facility] (Dr. Munoz) on 03/25. States okay to cardiovert as long as pt has been consistent w/AC and will continue for at least 1 month after conversion, with first week after procedure highest risk for embolism. Our facility does not have appropriate staff to coordinate inpatient cardioversion, will work to transfer to appropriate level of care. -Xarelto mg daily -Metoprolol 50mg b.i.d. -Digoxin 0.25mg q6h -mIVF at 150cc/hr -Tele #Scrotal edema New onset over past 2 days. No testicular pain aside from discomfort from stretching of skin. -US scrotum pending #Colon mass #Perirectal Abscess CT on arrival was suspicious for perirectal/perineal abscess as well as a high- grade luminal narrowing within the sigmoid colon that was concerning raised concern for colon CA. Subsequent colonoscopy demonstrated extensive diverticulosis without stricture, no intraluminal mass or polyps, mild colitis but no biopsies taken due to anticoagulation. No clear abscess needing drainage, localized inflammation thought to be 2/2 diarrhea. -Infectious stool studies pending -Tylenol + ibuprofen for pain, zofran for nausea -Morphine IV prn, did not like how oxycodone made him feel #Hypertension: -Metoprolol -Home losartan 50mg daily Diet: Regular DVT ppx: [place] PCP: Adis MDM: Dispo: Likely transfer to facility where cardioversion can be performed Time-Based Coding :: 65 spent with patient and on the chart (including review of chart, obtaining history, exam, reviewing outside data, placing orders, documenting exam and treatment plan, and counseling patient) on 03/26/2024. PROFEE Charge codes Subsequent inpatient/observation care: 49343 Inpatient/observation prolonged services: [id number]
--- NOTE | 2024-03-26 08:04 | DI.US.S_ITS ---
PROCEDURE: US SCROTUM INDICATIONS: scrotal swelling TECHNIQUE: Real-time scanning was performed of the scrotum and testicles, with image documentation. Color and pulse Doppler interrogation was performed of both testicles. COMPARISON: None. FINDINGS: Right: Testicle is normal in size at 3.4 x 2.5 x 2.4 cm, and homogenous in echotexture. Epididymis appears thickened with question increased vascularity. Hydrocele present. No varicocele. Overlying scrotal skin is normal in thickness. Left: Testicle is normal in size at 3.7 x 2.7 x 2.5 cm, and homogeneous in echotexture. Epididymis appears thickened with a question of increased vascularity. Hydrocele present. No varicocele. Overlying scrotal skin is increased in thickness. Doppler: Color and pulse Doppler demonstrate normal and symmetric arterial flow in both testicles. IMPRESSION: 1. Question bilateral mild epididymitis. 2. Bilateral hydroceles. 3. Unremarkable testicles. Dictated by: Jose Peace M.D. on 03/26/2024 at 9:43 Approved by: Jose Peace M.D. on 03/26/2024 at 9:50
[2024-03-26] MEDS: METOPROLOL ER 25 MG TABLET PO (08:22)
[2024-03-26] MEDS: RIVAROXABAN 10 MG TABLET 20 MG PO (08:22)
[2024-03-26] MEDS: LOSARTAN 50 MG TABLET PO (08:25)
[2024-03-26] MEDS: PANTOPRAZOLE 40 MG VIAL IV (08:25)
[2024-03-26] MEDS: DERMOPLAST SPRAY 20% 60 ML 1 SPRAY TOP (08:25)
[2024-03-26] MEDS: MORPHINE 4 MG/ML INJ IV ×3 (08:26→16:08)
[2024-03-26] MEDS: TIMOLOL 0.25% OPHTH 1 DROPS EYE-BOTH (09:38)
--- NOTE | 2024-03-26 10:24 | PC.NURSE ---
Heart rate/rhythm has continued to be in Aflutter with rate of 137-145 during the night, as reported by caustic cresylate shift superintendent nurse, updated Dr. Arceo on pt status, pt remains asymptomatic, denies chest pain,BP stable at this time. Dr Arceo has initiated transfer in able to treat A-flutter with cardioversion and MAURO, pt made NPO in anticipation of the procedure. Ultrasound of scrotal area was completed, see report for results, Dr Arceo notified that results are in, no new orders at this time. Will continue to treat and monitor as ordered until transfer is completed. No further needs at this time.
--- NOTE | 2024-03-26 13:59 | CM.DPNOTE ---
DCP Cont Reviewed chart. Patient discussed in multidisciplinary rounds. Transfer being attempted for cardioversion and MAURO. CM team following clinical course closely . KOTA
--- NOTE | 2024-03-26 15:21 | PM.DS.1 ---
History of Present Illness History of Present Illness Date Patient Seen: 03/26/24 Time Patient Seen: 15:21 Date of Onset of Symptoms: 03/23/24 Chief complaint: Black tarry stools x 3 days Narrative: 78 yo M with hx of atrial flutter on Xarelto presented with rectal pain and diarrhea. Diarrhea started about 2 weeks prior to admission and has been off and on since then but continuous over the preceding 6-7 days. Stools reported to be dark in color and tarry. He did not have abdominal pain. The rectal pain has been present throughout as well and did not seem to be improving. He did report having a fever prior to admission but otherwise had been afebrile. His reported that he had a cough and congestion starting about 2 weeks ago as well, but this seems to have improved since then. At this time he notes nausea but no vomiting and no abdominal pain. He denies cough and congestion. He is feeling off but no chest pain, lightheadedness or dizziness. On admission WBC 14, hematocrit 33, INR 2.3, creatinine 1.3. CT abdomen pelvis demonstrates a mass within the sigmoid colon inflammation of the perineal tissue with a 1 cm rectal abscess. His last colonoscopy was over 10 years ago he has a history of colonic polyps no family history of colon cancer. Discharge Providers Provider Date of admission: 03/23/24 15:59 Discharge Date: 03/26/24 Primary care physician: Daniel Arceo MD Consults: 03/23/24 14:31 Consult to General Surgery Stat Comment: Consulting Provider: Bony Conroy Reason for consultation: Perirectal abscess Has provider been notified: Yes Discharge provider: Daniel Arceo MD Summary Hospital Course Discharge Diagnosis: # Atrial flutter # Tachycardia # Scrotal edema # Perirectal abscess # Hypertension Hospital Course: Initially hypotensive, blood pressures eventually did respond to fluid resuscitation. Colonoscopy performed 03/25/2024 was remarkable for extensive diverticulosis without stricture and mild colitis, no intraluminal mass or polyps were noted. No biopsies were performed due to anticoagulation. Surgeon felt that CT scan was not definitive and there was no indication for exploratory laparotomy. Patient was persistently tachycardic despite fluid resuscitation and was confirmed to have atrial flutter. Started on digoxin without any improvement in terms of rate control. Medical record indicates lack of response to medication in terms of conversion back to sinus rhythm. Discussed with on-call sales supervisor from [facility] where he normally receives care, advise that electrical cardioversion would be appropriate if possible. Transfer initiated due to lack of appropriate resources at this facility. Status at Discharge Cognitive/behavioral status at discharge: at baseline, oriented Functional status at discharge: independent ambulation Overall status at discharge: patient is progressing back to baseline Time Spent with Patient Time spent: Greater than 30 minutes Exam Vital Signs (past 8 hours): - 03/26/24 08:00 03/26/24 08:00 03/26/24 08:00 Temperature 99.5 F Pulse Rate 140 H Respiratory Rate 20 Blood Pressure Pulse Oximetry 97 Oxygen Delivery Method Room Air 03/26/24 08:22 03/26/24 08:24 03/26/24 08:24 Temperature Pulse Rate 138 H 140 H Respiratory Rate 29 H Blood Pressure 130/67 130/67 Pulse Oximetry 99 Oxygen Delivery Method 03/26/24 08:25 03/26/24 09:00 03/26/24 09:00 Temperature Pulse Rate 138 H 137 H Respiratory Rate 27 H Blood Pressure 130/67 147/69 H Pulse Oximetry 97 Oxygen Delivery Method 03/26/24 10:00 03/26/24 10:00 03/26/24 11:00 Temperature Pulse Rate 137 H Respiratory Rate 15 Blood Pressure 142/67 H 152/78 H Pulse Oximetry 97 Oxygen Delivery Method 03/26/24 11:00 03/26/24 12:00 03/26/24 12:00 Temperature Pulse Rate 134 H Respiratory Rate 25 H Blood Pressure 141/77 H Pulse Oximetry 91 Oxygen Delivery Method Room Air 03/26/24 12:00 03/26/24 12:00 03/26/24 13:00 Temperature 99.5 F Pulse Rate 138 H Respiratory Rate 24 Blood Pressure 138/76 Pulse Oximetry 94 Oxygen Delivery Method 03/26/24 13:00 03/26/24 14:00 03/26/24 14:00 Temperature Pulse Rate 137 H 138 H Respiratory Rate 18 23 Blood Pressure 139/77 Pulse Oximetry 93 92 Oxygen Delivery Method 03/26/24 15:00 03/26/24 15:00 Temperature Pulse Rate 138 H Respiratory Rate 48 H Blood Pressure 162/81 H Pulse Oximetry 94 Oxygen Delivery Method Fraction of Inspired Oxygen 21 SaO2/FiO2 Ratio 452 Oxygen Delivery Method Room Air Oxygen Flow Rate 1 Narrative Exam Narrative: General: Pleasant, NAD HEENT: NC/AT, EOMI, moist membranes CV: Tachycardic, regular rhythm, no m/g/r Resp: Mild wheezing bilaterally, comfortable WOB Abd: Soft, NTND, +BS : Scrotal edema Ext: No edema Skin: No rash or lesions noted Neuro: A&O x3, moves all extremities, no focal deficits Objective Labs 03/26/24 04:45 03/26/24 04:45 Labs: Laboratory Results - last 24 hr 03/26/24 04:45 WBC 8.8 RBC 3.35 L Hgb 11.6 L Hct 33.2 L MCV 99.0 D MCH 34.6 H MCHC 35.0 RDW 13.5 Plt Count 216 Neut % (Auto) 88.9 H Lymph % (Auto) 5.3 L [place] % (Auto) 5.2 Eos % (Auto) 0.5 L Baso % (Auto) 0.1 Neut # (Auto) 7800 H Lymph # (Auto) 500 L [place] # (Auto) 500 Eos # (Auto) 0 Baso # (Auto) 0 PT 29.4 H INR 2.5 H APTT 32 D Sodium 138 Potassium 3.6 Chloride 106 Carbon Dioxide 26 BUN 21 H Creatinine 1.16 Estimated GFR > 60 BUN/Creatinine Ratio 18.1 Glucose 105 Calcium 7.6 L Magnesium 2.1 TSH 2.35 Digoxin 0.7 L PFSH Medical History (Updated 03/26/24 @ 08:08 by Daniel Arceo MD) Atrial flutter Trichilemmoma Compound fracture (1963) Gout (Unknown) Rheumatic fever (Unknown) Chickenpox (Unknown) Measles (Unknown) Cataracts, bilateral (~2007) Vertigo (2010) Kidney stones (1993) Irregular heart beat (~1955) Hyperlipemia (2010) Hypertension (Unknown) Heart failure (2010) Surgical History Hx of umbilical hernia repair (05/2007) Hx of inguinal hernia surgery (12/2004) History of kidney surgery (1993) Hx of cataract surgery (2008) Status post knee surgery (06/14/07) Family History Father Heart disease Social History household members: spouse Smoking Status: Never smoker alcohol intake: current Discharge Assessment & Plan Assessment and Plan Assessment: 78yo male initially admitted with diarrhea, rectal pain, CT imaging concerning for colon cancer and subsequently developed persistent atrial flutter. Plan of Treatment: #Paroxysmal atrial flutter #Tachycardia Persistent flutter confirmed on EKG. On chart review, pt has required cardioversion x3 after not responding to medical therapy. No improvement of rate control with digoxin. Discussed w/integration software developer physician for [facility] (Dr. Munoz) on 03/25. States okay to cardiovert as long as pt has been consistent w/AC and will continue for at least 1 month after conversion, with first week after procedure highest risk for embolism. Our facility does not have appropriate staff to coordinate inpatient cardioversion, accepted for transfer to [facility]. -Xarelto mg daily -Metoprolol 50mg b.i.d. -Digoxin 0.25mg q6h -Tele #Scrotal edema New onset over past 2 days. No testicular pain aside from discomfort from stretching of skin. -US scrotum demonstrates bilateral hydroceles, questionable bilateral epididymitis, no testicular abnormality #Colon mass #Perirectal Abscess CT on arrival was suspicious for perirectal/perineal abscess as well as a high-grade luminal narrowing within the sigmoid colon that was concerning raised concern for colon CA. Subsequent colonoscopy demonstrated extensive diverticulosis without stricture, no intraluminal mass or polyps, mild colitis but no biopsies taken due to anticoagulation. No clear abscess needing drainage, localized inflammation thought to be 2/2 diarrhea. -Infectious stool studies pending -Tylenol + ibuprofen for pain, zofran for nausea -Morphine IV prn, did not like how oxycodone made him feel #Hypertension: -Metoprolol -Home losartan 50mg daily Discharge Plan Discharge Plan Patient Disposition: [facility] Other facility: [facility] Under care of provider: Dr. Maria Johnson Diet/Activity/Treatments Diet: Regular Discharge Data Primary Care Provider: Daniel Arceo Charge Codes Discharge inpatient/observation: [id number]
== END 2024-03-26 16:20 | disposition short-term general hospital (02) | DRG 394 ==
LOC: ED 15:34 → AC 16:00 → ICU 19:48
PROVIDERS: Surgery; Admitting Provider Family Medicine; Emergency Provider Emergency Medicine; Family Provider Student in an Organized Health Care Education/Training Program; PCP Family Medicine; Referring Provider Emergency Medicine; Visit Provider Family Medicine
PROC: 0DJD8ZZ Inspection of Lower Intestinal Tract, Via Natural or Artificial Opening Endoscopic (ICD-10-PCS; CPT 45378; principal; 2024-03-25 15:15)
DX: K61.1 Rectal abscess (principal); I48.92 Unspecified atrial flutter; R00.0 Tachycardia, unspecified; I10 Essential (primary) hypertension; E78.5 Hyperlipidemia, unspecified; K52.9 Noninfective gastroenteritis and colitis, unspecified; N50.89 Other specified disorders of the male genital organs; K57.30 Diverticulosis of large intestine without perforation or abscess without bleeding; Z79.01 Long term (current) use of anticoagulants
CPT/HCPCS: 36415; 71045; 71260; 74174; 76870; 80048; 80053; 80162; 81001; 82378; 83605; 83690; 83735; 84145; 84443; 85014; 85018; 85025; 85610; 85730; 86850; 86900; 86901; 87040; 87633; 87797; 93005; 96365; 96366; 96367; 96368; 99285; 99291; J0136; J0696; J1160; J1644; J1940; J1956; J2270; J2405; J2470; J2704; Q9967

== ENCOUNTER 2024-06-02 04:09 | Emergency (ER) | payer OTHER, SELFPAY ==
[2024-03-23 21:03] VITALS: BMI 29.9
[2024-06-02] VITALS (7 sets, daily range): BP systolic 131–140; BP diastolic 64–69; PULSE 61–95; RESP 18; TEMP 36.3; O2SAT 92–96; BMI 28.5
--- NOTE | 2024-06-02 04:20 | DI.CT.S_ITS ---
PROCEDURE: CT HEAD/BRAIN WO CON INDICATIONS: Trauma, fall on blood thinners, per notes TECHNIQUE: Noncontrast 4.5 mm thick angled axial sections acquired from the foramen magnum to the vertex, with coronal and sagittal reformats. For radiation dose reduction, the following was used: automated exposure control, adjustment of mA and/or kV according to patient size. COMPARISON: None. FINDINGS: Image quality: Diagnostic. CSF spaces: Basal cisterns are patent. No extra-axial fluid collections. The ventricles are symmetric in size and shape. Brain: No intracranial bleeds or masses. There is cerebral volume loss for age, with resultant ventricular and sulcal prominence. There are periventricular and deep white matter chronic small vessel ischemic changes. There is moderate intracranial internal carotid artery atherosclerosis. Skull and face: Calvarium and visualized facial bones appear intact, without suspicious lesions. Sinuses: Mild mucoperiosteal thickening bilateral ethmoid sinuses 4 mm thickness. IMPRESSION: Atrophy and chronic white matter small vessel ischemic changes. No CT evidence of intracranial hemorrhage. No CT evidence of acute abnormality. If symptoms persist or worsen, or there is high clinical suspicion of acute abnormality, MRI brain could be performed. Dictated by: Len Hudson M.D. on 06/02/2024 at 8:11 Approved by: Len Hudson M.D. on 06/02/2024 at 8:16
--- NOTE | 2024-06-02 04:20 | ED.GENADULT ---
HPI - General Adult General Chief complaint: Fall Stated complaint: fall Time Seen by Provider: 06/02/24 04:13 Source: patient Mode of arrival: EMS Limitations: no limitations History of Present Illness HPI narrative: Patient is a 78-year-old male who is on Eliquis who at baseline uses a walker and also wheelchair who is here for evaluation of a fall where he hit his head. No loss of consciousness. He stated that he was using the restroom this morning. Using a walker. Somewhat he was with him. He lost his balance and fell landed on his buttocks and then hit his head. No loss of consciousness. No other injuries from the event. Related Data Home Medications Medication Instructions Recorded Confirmed timolol 0.25 % eye drops 1 drp EYE-BOTH BID 08/08/22 06/02/24 calcium carbonate (Calcium Antacid) 1,000 mg PO Q4HR 06/02/24 06/02/24 ferrous sulfate 325 mg (65 mg 325 mg DAILY 06/02/24 06/02/24 iron) tablet (FeroSul) melatonin 3 mg tablet 3 mg PO ONCE PM 06/02/24 06/02/24 utcjnsrundlw-aflpvkzd-gtnw 1 tab PO DAILY 06/02/24 06/02/24 fumarate 7.5 mg-folic acid 400 mcg tablet sennosides 8.6 mg tablet (senna) 1 mg PO DAILY 06/02/24 06/02/24 Previous Rx's Medication Instructions Recorded rivaroxaban 20 mg tablet (Xarelto) 20 mg PO QPM #90 tabs 07/10/23 simvastatin 40 mg tablet 40 mg PO ONCE PM #90 tabs 03/17/24 Allergies Allergy/AdvReac Type Severity Reaction Status Date / Time amoxicillin [AMOXICILLIN] Allergy Unknown pt doesn't Verified 03/24/24 16:37 remember codeine [CODEINE] Allergy Unknown NAUSEA Verified 02/15/24 14:44 Review of Systems Review of Systems Narrative: See HPI Constitutional Constitutional: Reports system reviewed and no additional complaints, except as documented Integumentary/Breasts Skin/Breast: Reports system reviewed and no additional complaints, except as documented Neurologic Neurologic: Reports system reviewed and no additional complaints, except as documented Hematologic/Lymphatic On Anticoagulants: Yes Patient History Medical History Atrial flutter Trichilemmoma Compound fracture (1963) Gout (Unknown) Rheumatic fever (Unknown) Chickenpox (Unknown) Measles (Unknown) Cataracts, bilateral (~2007) Vertigo (2010) Kidney stones (1993) Irregular heart beat (~1955) Hyperlipemia (2010) Hypertension (Unknown) Heart failure (2010) Surgical History Hx of umbilical hernia repair (05/2007) Hx of inguinal hernia surgery (12/2004) History of kidney surgery (1993) Hx of cataract surgery (2008) Status post knee surgery (06/14/07) Family History Father Heart disease Social History household members: spouse Smoking Status: Never smoker alcohol intake: current Smoking Status: Never smoker alcohol intake frequency: 0-2 drinks per day Alcohol type: beer and wine Substance Use Type: does not use Exam Initial Vital Signs Initial Vital Signs: Vital Signs Pulse Rate 95 H 06/02/24 04:11 Pulse Oximetry 92 06/02/24 04:11 Const General: cooperative, comfortable and No ill appearing HENMT Head: No abrasion and contusion Face and sinus: normal facial exam Resp Effort & Inspection: normal respiratory effort Cardio Rate: regular rate Back/Spine/Pelvis Cervical Spine: No cervical spinal tenderness Skin General: no rashes or lesions noted Neuro General: patient alert, patient awake, patient oriented x3 and moves all extremities Extrem General: normal to inspection and capillary refill normal Scores [place] CT Head Rule Age <16 years old: No Patient on blood thinners: Yes Seizure after injury: No Exclusion: Patient meets exclusion criteria GCS < 15 at 2 hr post trauma: No Suspected open or depressed skull fracture: No Any sign of basilar skull fracture (hemotympanum, raccoon eyes, Lowe's sign, CSF ryan-/rhinorrhea): No Two or more episodes of vomiting: No Age greater or equal to 65 years: Yes Retrograde amnesia to the event greater or equal to 30 min: No Dangerous Mechanism (pedestrian vs. mv, occupant ejected from mv, fall from >3 ft or > 5 stairs): No Recommendation: Consider CT. The [place] Head CT Rule cannot rule out need for Imaging. GCS [place] coma scale eye opening: Spontaneous [place] coma scale verbal response: Orientated [place] coma scale motor response: Obey commands Moira coma scale total score: 15 Nexus Score for C-Spine Focal Neurologic deficit present: No Midline spinal tenderness present: No Altered level of conciousness present: No Intoxication present: No Distracting Injury Present: No Nexus Criteria for C-spine: 0 Course Orders Ordered: ED Orders 06/02/24 04:20 CT head/brain wo con Stat 06/02/24 04:54 Urine Culture Stat Vital Signs Vital signs: Vital Signs - 8 hr 06/02/24 04:11 06/02/24 04:16 06/02/24 04:30 Temperature 97.4 F L Pulse Rate 95 H 61 Respiratory Rate 18 Blood Pressure 140/66 136/65 Pulse Oximetry 92 94 Oxygen Delivery Method Room Air 06/02/24 04:30 06/02/24 04:50 06/02/24 04:50 Temperature Pulse Rate 92 H 89 Respiratory Rate 18 Blood Pressure 134/67 Pulse Oximetry 94 94 Oxygen Delivery Method Medical Decision Making Imaging Data CT scan - head: Radiologist's Impression: No acute intracranial findings MDM Narrative Medical decision making narrative: Patient had a fall blood thinners. No extremity injuries. Cervical spine cleared by nexus criteria. Head CT shows no acute intracranial abnormalities. He does have an indwelling Ross catheter the does have cloudy urine however we will wait to start on any antibiotics until the culture results. No other injuries reported by the patient or found in the exam. Discharge patient home with return precautions. Discharge Plan Departure Patient Disposition: Home Clinical Impression: Closed head injury Instructions: How to Prevent Falls Activity Restrictions/Additional Instructions: There was a urine culture pending at the time of your discharge. We will wait for the results of this before starting any antibiotics if needed. Continue to take all of your medications as directed. Return to the emergency department for new symptoms. Prescriptions: No Action Xarelto 20 mg tablet 20 mg PO QPM Qty: 90 3RF Rx Instructions: must administer with evening meal simvastatin 40 mg tablet 40 mg PO ONCE PM Qty: 90 3RF timolol 0.25 % drops 1 drp EYE-BOTH BID sennosides [senna] 8.6 mg tablet 1 mg PO DAILY melatonin 3 mg tablet 3 mg PO ONCE PM ferrous sulfate [FeroSul] 325 mg (65 mg iron) tablet 325 mg DAILY Patient Comments: [NO ORIGINAL SIG] calcium carbonate [Calcium Antacid] 200 mg calcium (500 mg) tablet,chewable 1,000 mg PO Q4HR nupbftyl-lbl-ryjc fum-folic ac 7.5 mg iron-400 mcg tablet 1 tab PO DAILY Referrals: Daniel Arceo MD [Primary Care Provider] - Stand Alone Forms: Patient Portal/API
--- NOTE | 2024-06-02 05:08 | PC.NURSE ---
Pt with morales catheter with cloudy urine seen provider aware and ordered a u/a, Changed catheter bag to get clean sample at this time.
== END 2024-06-02 06:15 | disposition home or self-care (01) ==
PROVIDERS: Emergency Provider Emergency Medicine; Family Provider Student in an Organized Health Care Education/Training Program; PCP Family Medicine
DX: S09.90XA Unspecified injury of head, initial encounter (principal); W18.30XA Fall on same level, unspecified, initial encounter; Z79.01 Long term (current) use of anticoagulants; R40.2410 Glasgow coma scale score 13-15, unspecified time
CPT/HCPCS: 70450; 87077; 87086; 99282; 99284

== ENCOUNTER → 2024-07-27 15:41 | Outpatient (ROUT) | payer OTHER, SELFPAY ==
[2024-03-23 21:03] VITALS: BMI 29.9
[2024-07-27 15:58] LABS: Appearance Urine UA TURBID; Bilirubin Urine UA NEGATIVE (NEGATIVE); Color Urine UA RED; Glucose Urine UA NEGATIVE (Negative); Ketones Urine UA NEGATIVE (NEGATIVE); Leukocyte Esterase Urine UA 3+ (NEGATIVE); Nitrite Urine UA NEGATIVE (Negative); Occult Blood Urine UA 3+ (Negative); Protein Urine UA 2+ (Negative); Urobilinogen Urine UA 0.2 E.U./dL (0.2)
[2024-07-27 16:01] LABS: Bacteria Urine Few (2-10); Culture Indicated Urine Specimen Cultured; Mucus Urine 1+ (Negative); RBC Urine >100/HPF (0-5/HPF); Squamous Epithelial Cell Urine None Seen (0-5/HPF); Urine Volume 10mL (spun); WBC Urine 30-100/HPF (0-5/HPF)
== END ==
PROVIDERS: PCP Family Medicine; Visit Provider Internal Medicine
DX: Z13.89 Encounter for screening for other disorder (principal)
CPT/HCPCS: 81001; 87077; 87086; 87186

== ENCOUNTER → 2024-11-17 11:15 | Outpatient (CLI) | payer OTHER, SELFPAY ==
[2024-03-23 21:03] VITALS: BMI 29.9
[2024-11-17 12:58] LABS: Hematocrit 35.2 % (41-53); Hemoglobin 11.8 g/dL (13.5-17.5); Mean Corpuscular HGB Conc 33.7 % (30-36); Mean Corpuscular Hemoglobin 31.8 PG (26-34); Mean Corpuscular Volume 94.6 fL (80-100); Platelet Count 201 X10^3/uL (150-400); Red Blood Cell Count 3.72 X10^6/uL (4.5-5.9); Red Cell Distribution Width 14.2 % (11.6-14.8)
[2024-11-17 13:24] LABS: Alanine Aminotransferase 23 IU/L (<50); Albumin 3.7 g/dL (3.5-5.0); Albumin Globulin Ratio 1.3 (1.0-2.8); Alkaline Phosphatase 62 U/L (38-126); Aspartate Aminotransferase 28 IU/L (17-59); BUN Creatinine Ratio 19.6 (6-22); Bilirubin Total 1.2 mg/dL (0.2-1.3); Blood Urea Nitrogen 42 mg/dL (9-20); Calcium 8.9 mg/dL (8.4-10.2); Carbon Dioxide 22 mmol/L (22-32); Chloride 103 mmol/L (98-107); Cholesterol 137 mg/dL (140-199); Estimated Glomerular Filt Rate 31 mL/min (>60); Globulin 2.8 g/dL (1.7-4.1); Glucose 105 mg/dL (80-110); HDL Cholesterol 33 mg/dL (40-60); HEMOLYSIS < 15 (0-50); LDL Cholesterol Calculated 65 mg/dL (<100); Potassium 4.4 mmol/L (3.4-5.1); Sodium 138 mmol/L (137-145); Total Protein 6.5 g/dL (6.3-8.2); Triglycerides 193 mg/dL (35-150)
[2024-11-17 13:52] LABS: Prostate Specific Antigen 13.1 ng/mL (0.10-4.00); TSH w/ Reflex to FT4 2.05 uIU/mL (0.47-4.68)
== END ==
PROVIDERS: PCP Family Medicine; Referring Provider Family Medicine; Visit Provider Family Medicine
DX: D64.9 Anemia, unspecified (principal); E78.00 Pure hypercholesterolemia, unspecified; Z79.899 Other long term (current) drug therapy; N50.89 Other specified disorders of the male genital organs; I48.92 Unspecified atrial flutter
CPT/HCPCS: 36415; 80053; 80061; 84153; 84443; 85027

== ENCOUNTER → 2024-11-18 14:22 | Outpatient (CLI) | payer OTHER, SELFPAY ==
[2024-11-18 11:39] VITALS: BMI 29.9
[2024-11-18 19:37] LABS: Appearance Urine UA SL CLOUDY; Bilirubin Urine UA NEGATIVE (NEGATIVE); Color Urine UA YELLOW; Glucose Urine UA NEGATIVE (Negative); Ketones Urine UA NEGATIVE (NEGATIVE); Leukocyte Esterase Urine UA 3+ (NEGATIVE); Nitrite Urine UA NEGATIVE (Negative); Occult Blood Urine UA 2+ (Negative); Protein Urine UA 2+ (Negative); Urobilinogen Urine UA 0.2 E.U./dL (0.2); pH Urine UA 8.5 (4.5-8.0)
[2024-11-18 19:47] LABS: Bacteria Urine Moderate (10-30); Culture Indicated Urine Specimen Cultured; Mucus Urine 1+ (Negative); RBC Urine 0-1/HPF (0-5/HPF); Squamous Epithelial Cell Urine 0-1 /HPF (0-5/HPF); Triple Phosphate Crystal Urine Occasional; Urine Volume 10mL (spun); WBC Urine 5-10/HPF (0-5/HPF)
== END ==
PROVIDERS: PCP Family Medicine; Visit Provider Family Medicine
DX: N39.0 Urinary tract infection, site not specified (principal)
CPT/HCPCS: 81001; 87077; 87086; 87186

== ENCOUNTER → 2024-11-21 16:08 | Outpatient (CLI) | payer OTHER, SELFPAY ==
[2024-11-18 11:39] VITALS: BMI 29.9
--- NOTE | 2024-11-21 16:08 | DI.US.S_ITS ---
PROCEDURE: US SCROTUM INDICATIONS: L testicular pain, hematuria TECHNIQUE: Real-time scanning was performed of the scrotum and testicles, with image documentation. Color and pulse Doppler interrogation was performed of both testicles. COMPARISON: [facility], , US SCROTUM, 03/26/2024, 9:00. FINDINGS: Right: Testicle is normal in size at 3.0 x 2.6 x 2.4 cm, and homogenous in echotexture. Epididymis is normal in overall size and morphology. At least moderate hydrocele with debris. No varicocele. Overlying scrotal skin is normal in thickness. Left: Testicle is normal in size at 3.4 x 2.8 x 2.1 cm, and homogeneous in echotexture. Epididymis is normal in overall size and morphology. Trace hydrocele. Small varicocele. There is a microcystic cluster inferior lateral to the testicle. Overlying scrotal skin is normal in thickness. Doppler: Color and pulse Doppler demonstrate normal and symmetric arterial flow in both testicles. Bilateral inguinal regions interrogated. Right inguinal repair mesh with no hernia seen. No left inguinal hernia. IMPRESSION: 1. No testicular mass, testicular torsion, epididymitis or orchitis. 2. Small left varicocele. 3. Bilateral hydroceles, right greater than left. 4. Previous mesh repair of right inguinal hernia. No current hernias noted. Dictated by: Jose Peace M.D. on 11/21/2024 at 21:13 Approved by: Jose Peace M.D. on 11/21/2024 at 21:18
== END ==
LOC: US 16:08
PROVIDERS: PCP Family Medicine; Referring Provider Family Medicine; Visit Provider Family Medicine
DX: N50.812 Left testicular pain (principal); R31.9 Hematuria, unspecified; I86.1 Scrotal varices; N43.3 Hydrocele, unspecified
CPT/HCPCS: 76870

== ENCOUNTER → 2024-12-29 13:14 | Outpatient (CLI) | payer OTHER, SELFPAY ==
[2024-11-18 11:39] VITALS: BMI 29.9
== END ==
PROVIDERS: PCP Family Medicine; Visit Provider Nurse Practitioner Family
DX: R30.0 Dysuria (principal)
CPT/HCPCS: 87077; 87086

== ENCOUNTER 2025-01-12 13:29 | Emergency (ER) | payer OTHER, SELFPAY ==
[2024-11-18 11:39] VITALS: BMI 29.9
[2025-01-12 13:46] VITALS: BP 151/71; PULSE 71; RESP 18; TEMP 36.1; O2SAT 99; BMI 27.1
--- NOTE | 2025-01-12 13:55 | DI.RAD.S_ITS ---
PROCEDURE: XR CHEST 1V INDICATIONS: chest pain TECHNIQUE: One view of the chest was acquired. COMPARISON: [facility], CR, XR CHEST 1V, 03/23/2024, 12:42. FINDINGS: Surgical changes and devices: None. Lungs and pleura: Elevation of right hemidiaphragm. No focal infiltrate. No pleural effusions or pneumothorax. Mediastinum: Mediastinal contours appear normal. Heart size is mildly enlarged. Bones and chest wall: No suspicious bony lesions. Overlying soft tissues appear unremarkable. IMPRESSION: Chronic elevation of right hemidiaphragm. No focal infiltrate, pleural effusion or pneumothorax. Dictated by: Job Hector M.D. on 01/12/2025 at 15:53 Approved by: Job Hector M.D. on 01/12/2025 at 15:53
--- NOTE | 2025-01-12 13:55 | DI.CT.S_ITS ---
PROCEDURE: CT ANGIO HEAD AND NECK INDICATIONS: blood clot in eye TECHNIQUE: After the administration of intravenous contrast, 1 mm thick sections acquired from the aortic arch through the [place] of [place]. MIP reformats of the arterial vasculature were utilized. For radiation dose reduction, the following was used: automated exposure control, adjustment of mA and/or kV according to patient size. Study limited by patient positioning. COMPARISON: None. FINDINGS: Cerebral CT Angiogram: Internal carotid arteries: No acute findings. Intracranial ICA are patent with no significant stenosis. No occlusion. No aneurysm. Anterior cerebral arteries: Unremarkable. No significant stenosis. No occlusion. No aneurysm. Middle cerebral arteries: Unremarkable. No significant stenosis. No occlusion. No aneurysm. Posterior cerebral arteries: Unremarkable. No significant stenosis. No occlusion. No aneurysm. Basilar artery: Unremarkable. No significant stenosis. No occlusion. No aneurysm. Vertebral arteries: Unremarkable as visualized. Dural venous sinuses: Unremarkable given phase of enhancement. Other: Arterial phase brain parenchyma is unremarkable. Neck CT Angiogram: Internal carotid arteries: Densely calcified plaque in the proximal right ICA results in 70-80% stenosis utilizing NASCET criteria. No stenosis on the left Common carotid arteries: Unremarkable. No significant stenosis. No dissection or occlusion. External carotid arteries: Unremarkable. No occlusion. Vertebral arteries: Unremarkable. No significant stenosis. No dissection or occlusion. Other: None. Aortic Arch and Mediastinum: Partially visualized aortic arch unremarkable without evidence of aneurysm. Origins of the great vessels unremarkable. IMPRESSION: Unremarkable CT angiogram of the head and neck. No evidence large vessel occlusion, aneurysm or vascular malformation 70-80% atherosclerotic stenosis in the right proximal ICA Approved by: Pramod Thurman M.D. on 01/12/2025 at 15:07
--- NOTE | 2025-01-12 14:01 | EKG_ITS ---
[address] [address] Test Date: 2025-01-12 Pat Name: Clarke Gatica Department: Room: Gender: Male Working [employer]: RAQUEL : 1945 Requested By: Order Number: [id number] Reading MD: Dylan Mcduffie Measurements Intervals Champion Rate: 75 P: 114 VA: 154 QRS: -67 QRSD: 128 T: -4 QT: 406 QTc: 453 Interpretive Statements Normal sinus rhythm Right bundle branch block Left anterior fascicular block Bifascicular block Possible Lateral infarct , age undetermined Electronically Signed On 01-14-2025 17:38:48 PDT by Dylan Mcduffie
[2025-01-12 14:14] LABS: Add Manual Diff / Slide Review NO; Basophils Absolute Auto 100 /uL (0-100); Basophils Percent Auto 0.8 % (0-2); Eosinophils Absolute Auto 300 /uL (0-450); Eosinophils Percent Auto 4.2 % (2-4); Hematocrit 34.2 % (41-53); Hemoglobin 11.4 g/dL (13.5-17.5); Lymphocytes Absolute Auto 1200 /uL (1100-4500); Lymphocytes Percent Auto 15.6 % (25-40); Mean Corpuscular HGB Conc 33.3 % (30-36); Mean Corpuscular Volume 93.1 fL (80-100); Monocytes Absolute Auto 400 /uL (0-900); Monocytes Percent Auto 5.6 % (3-14); Neutrophils Absolute Auto 5800 /uL (1500-7000); Neutrophils Percent Auto 73.8 % (50-75); Platelet Count 356 X10^3/uL (150-400); Red Blood Cell Count 3.68 X10^6/uL (4.5-5.9); Red Cell Distribution Width 13.2 % (11.6-14.8); White Blood Cell Count 7.9 X10^3/uL (4.5-11.0)
[2025-01-12 14:20] LABS: INR 1.3 (0.9-1.3); Prothrombin Time 15.1 SECONDS (9.4-12.5)
[2025-01-12 14:23] LABS: PTT Partial Thromboplastin Tim 41 SECONDS (25.1-36.5)
[2025-01-12 14:25] LABS: Alanine Aminotransferase 17 IU/L (<50); Albumin 4.2 g/dL (3.5-5.0); Albumin Globulin Ratio 1.2 (1.0-2.8); Alkaline Phosphatase 56 U/L (38-126); Aspartate Aminotransferase 23 IU/L (17-59); BUN Creatinine Ratio 18.1 (6-22); Bilirubin Total 0.8 mg/dL (0.2-1.3); Blood Urea Nitrogen 23 mg/dL (9-20); Calcium 9.5 mg/dL (8.4-10.2); Carbon Dioxide 26 mmol/L (22-32); Chloride 103 mmol/L (98-107); Creatine Kinase 32 U/L (55-170); Estimated Glomerular Filt Rate 57 mL/min (>60); Globulin 3.6 g/dL (1.7-4.1); Glucose 111 mg/dL (70-99); HEMOLYSIS < 15 (0-50); Lipase 164 U/L (23-300); Magnesium 1.9 mg/dL (1.6-2.3); Potassium 4.3 mmol/L (3.4-5.1); Sodium 139 mmol/L (137-145); Total Protein 7.8 g/dL (6.3-8.2)
[2025-01-12 14:36] LABS: NT-proBNP (BNP-Adult 18+) 227 pg/mL (<450); Troponin I < 0.012 ng/mL (0.01-0.034)
[2025-01-12 18:02] VITALS: BP 178/78; PULSE 79; O2SAT 91
[2025-01-12 18:03] VITALS: BP 178/78; PULSE 81; O2SAT 99
--- NOTE | 2025-01-12 18:29 | ED.EYEPROB ---
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 Chaparro who is apparently on vacation in [facility], last known well 8pm last night went he went to be, early this morning about 3:00 a.m. he woke up and looked at his digital clock and felt like he had some blurring to the upper right eye field, went back to bed, on awakening this morning and through the day today this symptoms have been persisting, has blurred unclear vision in the unilateral upper right visual field, no left field new visual deficits. Noon today he went over to the eye clinic in saw Dr. Villa, had a dilated eye exam, referred here for further workup, concern for possible retinal artery occlusion or stroke. Patient takes Xarelto chronic anticoagulation, has not had more dose this morning. Related Data Home Medications Medication Instructions Recorded Confirmed timolol 0.25 % eye drops 1 drp EYE-BOTH BID 08/08/22 01/01/25 ferrous sulfate 325 mg (65 mg 325 mg DAILY 06/02/24 01/01/25 iron) tablet (FeroSul) melatonin 3 mg tablet 3 mg PO ONCE PM 06/02/24 01/01/25 hasvxlnmnckq-qtftybrp-bjka 1 tab PO DAILY 06/02/24 01/01/25 fumarate 7.5 mg-folic acid 400 mcg tablet Previous Rx's Medication Instructions Recorded simvastatin 40 mg tablet 40 mg PO ONCE PM #90 tabs 03/17/24 rivaroxaban 20 mg tablet (Xarelto) 20 mg PO QPM #90 tabs 07/22/24 cefdinir 300 mg capsule 300 mg PO BID #14 caps 12/29/24 Allergies Allergy/AdvReac Type Severity Reaction Status Date / Time amoxicillin [AMOXICILLIN] Allergy Unknown pt doesn't Verified 01/01/25 14:25 remember codeine [CODEINE] Allergy Unknown NAUSEA Verified 01/01/25 14:25 Patient History Medical History (Updated 01/12/25 @ 21:07 by Louie Morin MD) Perirectal abscess Atrial flutter Trichilemmoma Compound fracture (1963) Gout (Unknown) Rheumatic fever (Unknown) Chickenpox (Unknown) Measles (Unknown) Cataracts, bilateral (~2007) Vertigo (2010) Kidney stones (1993) Irregular heart beat (~195) Hyperlipemia (2010) Hypertension (Unknown) Heart failure (2010) Surgical History Hx of umbilical hernia repair (05/2007) Hx of inguinal hernia surgery (12/2004) History of kidney surgery (1993) Hx of cataract surgery (2008) Status post knee surgery (06/14/07) Family History Father Heart disease Social History household members: spouse alcohol intake: current alcohol intake frequency: 0-2 drinks per day Alcohol type: beer and wine Exam Narrative Exam Narrative: GENERAL: Well-developed patient, in mild distress. HEAD: Atraumatic. Normocephalic. EYES: Pupils equal round and reactive. Extraocular motions intact. No scleral icterus. No injection or drainage. ENT: Nose without bleeding, purulent drainage. Throat without erythema, tonsillar hypertrophy or exudate. Airway patent. NECK: Trachea midline. Non tender CARDIOVASCULAR: Regular rate and rhythm without murmurs, gallops, or rubs. RESPIRATORY: Clear to auscultation. Breath sounds equal bilaterally. No wheezes, rales, or rhonchi. GASTROINTESTINAL: Abdomen soft, non-tender, nondistended. EXTREMITIES: No edema or joint tenderness. BACK: Nontender without deformity or crepitance. No flank tenderness. NEURO: AOx3. Cranial nerves unremarkable except for right superior decreased field of vision on monocular visual field testing, consistent with reported evaluation from eye clinic earlier today. No other cranial nerves seem obvious. Motor 5/5 bilateral upper and lower extremities. Sensation intact to face arms legs bilateral and symmetrical. Iuqser-pb-gehg testing bilateral normal. SKIN: No rash or erythema of visible areas Initial Vital Signs Initial Vital Signs: Vital Signs Temperature 96.9 F L 01/12/25 13:46 Pulse Rate 71 01/12/25 13:46 Respiratory Rate 18 01/12/25 13:46 Blood Pressure 151/71 H 01/12/25 13:46 Pulse Oximetry 99 01/12/25 13:46 Oxygen Delivery Method Room Air 01/12/25 13:46 Course Orders Ordered: Discontinued Medications Aspirin (Aspirin 81 Mg Chew Tab) 324 mg PO NOW ONE Stop: 01/12/25 13:56 Last Admin: 01/12/25 19:32 Dose: Not Given Documented By: Aspirin (Aspirin 81 Mg Chew Tab) 324 mg PO NOW ONE Stop: 01/12/25 20:29 Last Admin: 01/12/25 20:37 Dose: 324 mg Documented By: Clopidogrel Bisulfate (Clopidogrel 75 Mg Tablet) 300 mg PO NOW ONE Stop: 01/12/25 20:28 Last Admin: 01/12/25 20:37 Dose: 300 mg Documented By: Vital Signs Vital signs: Vital Signs - 8 hr 01/12/25 13:46 01/12/25 18:02 01/12/25 18:03 Temperature 96.9 F L Pulse Rate 71 79 Respiratory Rate 18 Blood Pressure 151/71 H 178/78 H 178/78 H Pulse Oximetry 99 91 Oxygen Delivery Method Room Air 01/12/25 18:03 Temperature Pulse Rate 81 Respiratory Rate Blood Pressure Pulse Oximetry 99 Oxygen Delivery Method MDM - Eye Problem Lab Data Attestation: I reviewed the patient's lab results. Lab results narrative: White blood cell count 7900, hemoglobin 11.4, renal function adequate. Glucose 111, electrolytes unremarkable. Troponin negative. 01/12/25 14:05 01/12/25 14:05 Labs: Lab Results 01/12/25 01/12/25 Range/Units 14:05 20:45 WBC 7.9 (4.5-11.0) X10^3/uL RBC 3.68 L (4.5-5.9) X10^6/uL Hgb 11.4 L (13.5-17.5) g/dL Hct 34.2 L (41-53) % MCV 93.1 (80-100) fL MCH 31.0 (26-34) PG MCHC 33.3 (30-36) % RDW 13.2 (11.6-14.8) % Plt Count 356 (150-400) X10^3/uL Neut % (Auto) 73.8 (50-75) % Lymph % (Auto) 15.6 L (25-40) % Placer % (Auto) 5.6 (3-14) % Eos % (Auto) 4.2 H (2-4) % Baso % (Auto) 0.8 (0-2) % Neut # (Auto) 5800 (9324-7672) /uL Lymph # (Auto) 1200 (3352-2942) /uL Placer # (Auto) 400 (0-900) /uL Eos # (Auto) 300 (0-450) /uL Baso # (Auto) 100 (0-100) /uL PT 15.1 H (9.4-12.5) SECONDS INR 1.3 (0.9-1.3) APTT 41 H (25.1-36.5) SECONDS Sodium 139 (137-145) mmol/L Potassium 4.3 (3.4-5.1) mmol/L Chloride 103 (98-107) mmol/L Carbon Dioxide 26 (22-32) mmol/L BUN 23 H (9-20) mg/dL Creatinine 1.27 H (0.66-1.25) mg/dL Estimated GFR 57 L (>60) mL/min BUN/Creatinine Ratio 18.1 (6-22) Glucose 111 H (70-99) mg/dL Calcium 9.5 (8.4-10.2) mg/dL Magnesium 1.9 (1.6-2.3) mg/dL Total Bilirubin 0.8 (0.2-1.3) mg/dL AST 23 (17-59) IU/L ALT 17 (<50) IU/L Alkaline Phosphatase 56 (38-126) U/L Total Creatine Kinase 32 L (55-170) U/L Troponin I < 0.012 (0.01-0.034) ng/mL NT-Pro-B Natriuret Pep 227 (<450) pg/mL Total Protein 7.8 (6.3-8.2) g/dL Albumin 4.2 (3.5-5.0) g/dL Globulin 3.6 (1.7-4.1) g/dL Albumin/Globulin Ratio 1.2 (1.0-2.8) Lipase 164 (23-300) U/L Urine RBC 0-1/hpf (0-5/HPF) Urine WBC 30-100/hpf H (0-5/HPF) Ur Squamous Epith Cells 0-1 /hpf (0-5/HPF) Urine Bacteria Moderate (10-30) H (None) Ur Culture Indicated? Specimen cultured Vol Urine Centrifuged 10ml (spun) Urine Dip Bedside Urine Glucose Negative Bedside Urine Bilirubin - Negative Bedside Urine Ketone - Negative Urine Specific Harris 1.010 Bedside Urine Occult Blood +/- Bedside Urine pH 6.0 Bedside Urine Protein - Negative Bedside Urine Urobilinogen - Negative Bedside Urine Nitrite - Negative Bedside Urine Leukocytes +++ 500 Esterase Imaging Data CTA - brain/neck: Radiologist's Impression: [address] [address] [address] Scan Report Signed Patient: Clarke Gatica MR#: [id number] : 1945 Acct:[id number] Age/Sex: 79 / M Date of Service: 01/12/25 Loc: ED Accession Number: [id number] Procedure: CT angio head and neck Ordering Provider: Elva Felipe D.O. PROCEDURE: CT ANGIO HEAD AND NECK INDICATIONS: blood clot in eye TECHNIQUE: After the administration of intravenous contrast, 1 mm thick sections acquired from the aortic arch through the [place] of [place]. MIP reformats of the arterial vasculature were utilized. For radiation dose reduction, the following was used: automated exposure control, adjustment of mA and/or kV according to patient size. Study limited by patient positioning. COMPARISON: None. FINDINGS: Cerebral CT Angiogram: Internal carotid arteries: No acute findings. Intracranial ICA are patent with no significant stenosis. No occlusion. No aneurysm. Anterior cerebral arteries: Unremarkable. No significant stenosis. No occlusion. No aneurysm. Middle cerebral arteries: Unremarkable. No significant stenosis. No occlusion. No aneurysm. Posterior cerebral arteries: Unremarkable. No significant stenosis. No occlusion. No aneurysm. Basilar artery: Unremarkable. No significant stenosis. No occlusion. No aneurysm. Vertebral arteries: Unremarkable as visualized. Dural venous sinuses: Unremarkable given phase of enhancement. Other: Arterial phase brain parenchyma is unremarkable. Neck CT Angiogram: Internal carotid arteries: Densely calcified plaque in the proximal right ICA results in 70-80% stenosis utilizing NASCET criteria. No stenosis on the left Common carotid arteries: Unremarkable. No significant stenosis. No dissection or occlusion. External carotid arteries: Unremarkable. No occlusion. Vertebral arteries: Unremarkable. No significant stenosis. No dissection or occlusion. Other: None. Aortic Arch and Mediastinum: Partially visualized aortic arch unremarkable without evidence of aneurysm. Origins of the great vessels unremarkable. IMPRESSION: Unremarkable CT angiogram of the head and neck. No evidence large vessel occlusion, aneurysm or vascular malformation 70-80% atherosclerotic stenosis in the right proximal ICA Approved by: Pramod Thurman M.D. on 01/12/2025 at 15:07 Chest x-ray: Radiologist's Impression: [address] [address] XRay Report Signed Patient: Clarke Gatica MR#: [id number] : 1945 Acct:[id number] Age/Sex: 79 / M Date of Service: 01/12/25 Loc: ED Accession Number: [id number] Procedure: XR chest 1V Ordering Provider: Elva Felipe D.O. PROCEDURE: XR CHEST 1V INDICATIONS: chest pain TECHNIQUE: One view of the chest was acquired. COMPARISON: [facility], , XR CHEST 1V, 03/23/2024, 12:42. FINDINGS: Surgical changes and devices: None. Lungs and pleura: Elevation of right hemidiaphragm. No focal infiltrate. No pleural effusions or pneumothorax. Mediastinum: Mediastinal contours appear normal. Heart size is mildly enlarged. Bones and chest wall: No suspicious bony lesions. Overlying soft tissues appear unremarkable. IMPRESSION: Chronic elevation of right hemidiaphragm. No focal infiltrate, pleural effusion or pneumothorax. Dictated by: Job Hector M.D. on 01/12/2025 at 15:53 Approved by: Job Hector M.D. on 01/12/2025 at 15:53 CT scan - head: Radiologist's Impression: [address] [address] [address] Scan Report Signed Patient: Clarke Gatica MR#: [id number] : 1945 Acct:[id number] Age/Sex: 79 / M Date of Service: 01/12/25 Loc: ED Accession Number: [id number] Procedure: CT head/brain wo con Ordering Provider: Louie Morin MD PROCEDURE: CT HEAD/BRAIN WO CON INDICATIONS: visual changes TECHNIQUE: Noncontrast 4.5 mm thick angled axial sections acquired from the foramen magnum to the vertex, with coronal and sagittal reformats. For radiation dose reduction, the following was used: automated exposure control, adjustment of mA and/or kV according to patient size. COMPARISON: [facility], CT, CT HEAD/BRAIN WO CON, 06/02/2024, 4:41. [facility], CT, CT ANGIO HEAD AND NECK, 01/12/2025, 14:39. FINDINGS: Image quality: Diagnostic. CSF spaces: Basal cisterns are patent. No extra-axial fluid collections. The ventricles are symmetric in size and shape. Brain: No intracranial bleeds or mass effect. There is cerebral volume loss, with resultant ventricular and sulcal prominence. There are periventricular and deep white matter chronic small vessel ischemic changes. There is intracranial internal carotid artery atherosclerosis. Skull and face: Calvarium and visualized facial bones appear intact, without suspicious lesions. Sinuses: Visualized sinuses and mastoids are clear. IMPRESSION: 1. No acute intracranial process. 2. Moderate atrophy and chronic microvascular ischemic changes. Dictated by: Cammy Miranda M.D. on 01/12/2025 at 18:59 Approved by: Cammy Miranda M.D. on 01/12/2025 at 19:00 ECG Data Attestation: I personally reviewed and interpreted this ECG as follows: Interpretation: Normal sinus rhythm with rate of 75, right bundle branch block pattern noted. [place] 154, QRS 128, QTC 453. [facility] Narrative Medical decision making narrative: 79-year-old male with history of prior retinal detachment laser surgery but he can not recall which side, chronic Xarelto anticoagulation, has right upper visual field blurred focal area of disturbance at least since 0300 this morning, persistent through the day, saw eye clinic earlier today, had dilated exam, referred for further evaluation, concern for possible central retinal artery occlusion or other problem. CT angiogram study head and neck vessels had been ordered. Labs were sent. We will order CT head noncontrast study, although now it will be after IV contrast from prior angiogram study. MRI not available at this hour. CT angiogram head and neck vessels. Impressions: ?Unremarkable CT angiogram of the head and neck. No large vessel occlusion, aneurysm or valve scapular malformation. 70-80% atherosclerotic stenosis in the right proximal ICA.? See radiology report. CTA narrowing 70-80% does not sound unremarkable. No vascular surgery or neurology on staff here. MRI brain ordered, but not available at this hour. CT head without IV contrast ordered, patient has already received IV contrast for head and neck vessels study prior. Anticipate consultation with Neurology. CT head showed no acute changes. See radiology report. 2014, case discussed with Dr. Piedra [facility] Neurology, who also has concerns about the narrowing of the right ICA, who will call back with recommendations. 2024, call back from Neurology Dr. Piedra at [facility] who recommends transfer, will be consulting vascular surgery, advises use of oral Plavix 300 mg load, and oral aspirin 324 mg load. Meds ordered. Transfer ED to ED [facility]. Will arrange EMS transportation. Incidental complaint about right foot swelling, x-rays requested by patient, done, no fractures per radiology reports. Possible foot contusion. No fever, will hold antibiotics for now. Patient requests use of his membership [employer] [facility] to query service about a their availability for transfer, for further workup of presumed stroke in context of narrowed internal carotid artery on imaging transfer via air ambulance to [facility] Discharge Plan Departure Patient Disposition: [facility] Clinical Impression: Stroke, Moderate vision loss of one eye, Carotid artery narrowing, Contusion of right foot Prescriptions: No Action cefdinir 300 mg capsule 300 mg PO BID Qty: 14 0RF simvastatin 40 mg tablet 40 mg PO ONCE PM Qty: 90 3RF Xarelto 20 mg tablet 20 mg PO QPM Qty: 90 2RF Rx Instructions: must administer with evening meal timolol 0.25 % drops 1 drp EYE-BOTH BID melatonin 3 mg tablet 3 mg PO ONCE PM ferrous sulfate [FeroSul] 325 mg (65 mg iron) tablet 325 mg DAILY Patient Comments: [NO ORIGINAL SIG] kbzlgcpo-ypa-lnbk fum-folic ac 7.5 mg iron-400 mcg tablet 1 tab PO DAILY Referrals: Daniel Arceo MD [Primary Care Provider] -
[2025-01-12] MEDS: CLOPIDOGREL 75 MG TABLET 300 MG PO (20:37)
[2025-01-12] MEDS: ASPIRIN 81 MG CHEW TAB 324 MG PO (20:37)
--- NOTE | 2025-01-12 20:42 | DI.RAD.S_ITS ---
PROCEDURE: XR FOOT RT MIN 3V INDICATIONS: pain to right foot TECHNIQUE: 3 views of the foot were acquired. COMPARISON: None. FINDINGS: Bones: No fractures or dislocations. Wgej-zn-pkubuipk right foot joint osteoarthritic changes are seen. No suspicious bony lesions. Soft tissues: No tibiotalar joint effusion. Achilles tendon appears normal. IMPRESSION: No acute right foot fracture or dislocation. Tpml-sl-ldowyndt right foot joint osteoarthritis. Dictated by: Job Hector M.D. on 01/12/2025 at 21:06 Approved by: Job Hector M.D. on 01/12/2025 at 21:10
--- NOTE | 2025-01-12 20:43 | DI.RAD.S_ITS ---
PROCEDURE: XR ANKLE RT MIN 3V INDICATIONS: pain to right ankle TECHNIQUE: 3 views of the ankle were acquired. COMPARISON: None. FINDINGS: Bones: No fractures or dislocations. Ankle mortise is normally aligned. No suspicious bony lesions. Tiny plantar and dorsal calcaneal enthesophytes are seen. Soft tissues: No tibiotalar joint effusion. Achilles tendon appears normal. IMPRESSION: No acute ankle fracture or dislocation. Ankle mortise is congruent. Tiny plantar and dorsal calcaneal enthesophytes. Dictated by: Job Hector M.D. on 01/12/2025 at 21:10 Approved by: Job Hector M.D. on 01/12/2025 at 21:10
[2025-01-12 21:14] LABS: Bacteria Urine Moderate (10-30); RBC Urine 0-1/HPF (0-5/HPF); Squamous Epithelial Cell Urine 0-1 /HPF (0-5/HPF); Urine Volume 10mL (spun); WBC Urine 30-100/HPF (0-5/HPF)
[2025-01-12 21:15] LABS: Culture Indicated Urine Specimen Cultured
[2025-01-12 21:26] VITALS: BP 179/78; PULSE 87; RESP 19; O2SAT 98
== END 2025-01-12 21:38 | disposition short-term general hospital (02) ==
PROVIDERS: Emergency Medicine; Emergency Provider Emergency Medicine; PCP Family Medicine
DX: I63.9 Cerebral infarction, unspecified (principal); S90.31XA Contusion of right foot, initial encounter; I65.21 Occlusion and stenosis of right carotid artery; H54.50 Low vision, one eye, unspecified eye; R07.9 Chest pain, unspecified; Z79.01 Long term (current) use of anticoagulants
CPT/HCPCS: 36415; 70450; 70496; 70498; 71045; 73610; 73630; 80053; 81003; 81015; 82550; 83690; 83735; 83880; 84484; 85025; 85610; 85730; 87077; 87086; 87186; 93005; 99284; Q9967

== ENCOUNTER → 2025-01-20 14:28 | Outpatient (CLI) | payer OTHER, SELFPAY ==
[2024-11-18 11:39] VITALS: BMI 29.9
[2025-01-20 15:46] LABS: Appearance Urine UA TURBID; Bilirubin Urine UA 1+ (NEGATIVE); Color Urine UA RED; Glucose Urine UA NEGATIVE (Negative); Ketones Urine UA NEGATIVE (NEGATIVE); Leukocyte Esterase Urine UA 2+ (NEGATIVE); Nitrite Urine UA NEGATIVE (Negative); Occult Blood Urine UA 3+ (Negative); Protein Urine UA 3+ (Negative); Specific Gravity Urine UA 1.015 (1.000-1.035); Urobilinogen Urine UA 0.2 E.U./dL (0.2); pH Urine UA 6.5 (4.5-8.0)
[2025-01-20 15:50] LABS: Bacteria Urine Few (2-10); Culture Indicated Urine Specimen Cultured; Ictotest Urine Negative (Negative); RBC Urine >100/HPF (0-5/HPF); Squamous Epithelial Cell Urine 0-1 /HPF (0-5/HPF); Urine Volume 10mL (spun); WBC Urine 10-30/HPF (0-5/HPF)
== END ==
PROVIDERS: PCP Family Medicine; Referring Provider Family Medicine; Visit Provider Family Medicine
DX: R31.9 Hematuria, unspecified (principal)
CPT/HCPCS: 81001; 87086

== ENCOUNTER → 2025-02-12 14:35 | Outpatient (CLI) | payer OTHER, SELFPAY ==
[2024-11-18 11:39] VITALS: BMI 29.9
== END ==
PROVIDERS: PCP Family Medicine; Visit Provider Urology
DX: N39.0 Urinary tract infection, site not specified (principal); Z68.27 Body mass index [BMI] 27.0-27.9, adult
CPT/HCPCS: 81002; 87077; 87086; 87186; 99213

== ENCOUNTER → 2025-04-16 09:12 | Outpatient (CLI) | payer OTHER, SELFPAY ==
[2024-11-18 11:39] VITALS: BMI 29.9
[2025-04-16 10:14] LABS: HEMOLYSIS < 15 (0-50); Iron 82 ug/dL (49-181)
[2025-04-16 10:17] LABS: Appearance Urine UA Cloudy; Color Urine UA Yellow; Glucose Urine UA NEGATIVE (Negative); Ketones Urine UA NEGATIVE (NEGATIVE); Nitrite Urine UA POSITIVE (Negative); Occult Blood Urine UA 3+ (Negative); Protein Urine UA TRACE (Negative); Specific Gravity Urine UA 1.010 (1.000-1.035); pH Urine UA 7 (4.5-8.0)
[2025-04-16 10:17] LABS: Blood Urea Nitrogen 27 mg/dL (9-20); Calcium 9.1 mg/dL (8.4-10.2); Carbon Dioxide 26 mmol/L (22-32); Chloride 105 mmol/L (98-107); Estimated Glomerular Filt Rate > 60 mL/min (>60); Glucose 100 mg/dL (70-99); HEMOLYSIS < 15 (0-50); Potassium 4.6 mmol/L (3.4-5.1); Sodium 138 mmol/L (137-145)
[2025-04-16 10:18] LABS: Bilirubin Urine UA Negative (NEGATIVE); Leukocyte Esterase Urine UA 3+ (NEGATIVE); Urobilinogen Urine UA 0.2 E.U./dL (0.2)
[2025-04-16 10:21] LABS: Culture Indicated Urine Specimen Cultured
[2025-04-16 10:24] LABS: Microalbumi Creatinin Ratio Ur 235.0 ug/mg CR (<30)
[2025-04-16 10:34] LABS: Percent Iron Saturation 31 % (20-50); Total Iron Binding Capacity 263 ug/dL (261-462); Transferrin 207 mg/dL (206-381)
[2025-04-16 10:38] LABS: HCG Quantitative /Beta subunit < 2.39 mIU/mL (<2.40)
[2025-04-16 10:46] LABS: TSH w/ Reflex to FT4 2.01 uIU/mL (0.47-4.68)
[2025-04-16 10:56] LABS: Ferritin 172 ng/mL (18-464)
[2025-04-16 11:35] LABS: Follicle Stimulating Hormone 27.2 mIU/mL
[2025-04-16 12:20] LABS: Estradiol, Total 30.3 pg/mL
[2025-04-17 08:09] LABS: CRP, High Sensitivity 1.37 mg/L (0.00-3.00)
[2025-04-28 12:10] LABS: Percent Free Testosterone 2.53 % (1.50-4.20)
== END ==
PROVIDERS: PCP Family Medicine; Referring Provider Family Medicine; Visit Provider Family Medicine
DX: H34.231 Retinal artery branch occlusion, right eye (principal); N63.0 Unspecified lump in unspecified breast; N62 Hypertrophy of breast; D64.9 Anemia, unspecified; N18.30 Chronic kidney disease, stage 3 unspecified; R97.20 Elevated prostate specific antigen [PSA]; I10 Essential (primary) hypertension; R31.9 Hematuria, unspecified
CPT/HCPCS: 36415; 80048; 81001; 82043; 82570; 82670; 82728; 83001; 83002; 83540; 83550; 84146; 84270; 84402; 84403; 84443; 84702; 85651; 86140; 87077; 87086; 87186; G0103